=== PATIENT | female | born 1990 | race Caucasian/White ===

== ENCOUNTER 2021-08-24 14:52 | Outpatient (CLI) | payer OTHER, SELFPAY ==
--- NOTE | ~2021-08-24 | US_ITS ---
EXAMINATION: US OB /maternal detail DATE: 08/24/2021 15:41 INDICATION: Second trimester anatomic survey TECHNIQUE: Real-time ultrasound of the pelvis was performed. COMPARISON: None. FINDINGS: There is a single living fetus in breech presentation. The placenta is anterior and 3.8 cm from the i nternal cervical os. heart rate is 138 beats per minute (bpm). cardiac activity and feta l movement are noted. The amniotic fluid index is subjectively normal. The following anatomy was identified as normal: 4 chamber heart 3 vessel cord cord insertion kidneys urinary bladder stomach spine diaphragm ventricles cisterna magna cerebellum The following biometric data were obtained: Biparietal diameter (BPD): 4.0 cm; head circumference (HC): 15.5 cm; abdominal circumference (AC): 13 .3 cm; femur length (FL): 2.5 cm. These measurements are concordant. Estimated weight is 234 g +/- 35 g, which correlates with the 39th percentile when 01/22/2022 is used as estimated date of delivery. As single measurements, these parameters are each equal to the following estimated gestational ages w ith ranges of +/- 2 standard deviations: BPD: 18 weeks 2 days +/- 1 weeks 5 days. HC: 18 weeks 3 days +/- 1 weeks 3 days. AC: 18 weeks 6 days +/- 20 weeks 0 days. FL: 17 weeks 5 days +/- 1 weeks 3 days. estimated gestational age based solely on measurements from this exam is 18 weeks 2 days +/- 1 weeks 2 days. IMPRESSION: 1. Single living fetus in breech presentation. 2. Estimated weight is 234 g +/- 35 g, which correlates with the 39th percentile when 01/22/2022 is used as estimated date of delivery. Reviewed, dictated and finalized at location F. OL ADMINISTRATOR IMPRESSION: 1. Single living fetus in breech presentation. 2. Estimated weight is 234 g +/- 35 g, which correlates with the 39th per centile when 01/22/2022 is used as estimated date of delivery.
== END 2021-08-24 14:53 | disposition home or self-care (01) ==
PROVIDERS: Visit Provider Obstetrics & Gynecology
DX: Z34.92 Encounter for supervision of normal pregnancy, unspecified, second trimester (principal); Z3A.18 18 weeks gestation of pregnancy
CPT/HCPCS: 76805

== ENCOUNTER 2021-11-07 10:24 | Observation (INO) | payer OTHER, SELFPAY ==
[2021-11-07] VITALS (68 sets, daily range): BP systolic 93–136; BP diastolic 53–72; PULSE 61–118; TEMP 36.7–37.1; O2SAT 95–100; BMI 33.0
--- NOTE | 2021-11-07 11:02 | OBADM ---
This patient, Libra Fontanez, admitted to the OB room 115 for observation for back and abdominal pain. Patient/family oriented to hospital policies and general routines including ID bracelet, bed and alarms, visiting hours, pain management, procedures, bathroom and other care routines, personal items, smoking policy, room service/diet, and visiting hours. Patient/Family are encouraged to report perceived risks to care and to ask questions if they do not understand what they are told or what they should do.
[2021-11-07 11:30] LABS: Add Urine Microscopic? YES; Appearance Urine Cloudy (Clear); Bacteria Urine Trace /hpf; Bilirubin Urine Negative (Negative); Blood Urine Negative (Negative); Color Urine Yellow (Yellow); Glucose Urine UA Negative (Negative); Ketones Urine Negative (Negative); Leukocyte Esterase Ur Negative LEU/UL (Negative); Mucus Urine Rare /lpf; Nitrate Urine Negative (Negative); Protein Urine Negative (Negative); RBC Urine 0-2 /hpf (0-2); Specific Grav Ur 1.015 (1.001-1.035); Squamous Epithelial Cell Urine Many /hpf (Few); Urobilinogen Urine Negative mg/dL (<2.0); WBC Urine 0-3 /hpf
[2021-11-07] MEDS: TERBUTALINE SULFATE 1 MG/ML VIAL 0.25 MG SUB-Q ×2 (12:32→13:43)
[2021-11-07] MEDS: CYCLOBENZAPRINE HCL 10 MG TABLET PO (14:46)
--- NOTE | 2021-12-03 16:50 | P.PNOB_ITS ---
OB - Triage/Final Diagnosis Visit Information Comments/Additional reasons for admission: I have assessed the risk for this patient, Libra Tafoya Huseyin, and determined that she would benefit from observation care. Evaluation Laboratory results: Laboratory Tests 11/07/21 11:10 Urine Color Yellow Urine Appearance Cloudy H Urine pH 6.0 Ur Specific [place] 1.015 Urine Protein Negative Urine Glucose (UA) Negative Urine Ketones Negative Ur Blood (Man) Negative Urine Nitrate Negative Urine Bilirubin Negative Urine Urobilinogen Negative Leukocyte Esterase Rfl Negative Urine RBC 0-2 Urine WBC 0-3 Ur Squamous Epith Cells Many H Urine Bacteria Trace Urine Mucus Rare Final Diagnosis (1) False labor: Code(s): O47.9 - False labor, unspecified Status: Acute
== END 2021-11-07 16:39 | disposition home or self-care (01) ==
PROVIDERS: Admitting Provider Obstetrics & Gynecology; Visit Provider Obstetrics & Gynecology
DX: O47.03 False labor before 37 completed weeks of gestation, third trimester (principal); Z3A.29 29 weeks gestation of pregnancy
CPT/HCPCS: 81001; 96372; A9270; G0378; G0379; J3105

== ENCOUNTER 2021-12-11 10:46 | Observation (INO) | payer OTHER, SELFPAY ==
[2021-12-11] VITALS (16 sets, daily range): BP systolic 122; BP diastolic 70; PULSE 62–77; RESP 16; TEMP 36.1; O2SAT 96–100; BMI 34.8
--- NOTE | 2021-12-11 11:15 | OBADM ---
This patient, Libra Fontanez, admitted to the OB room OB Post 116 for observation. Patient/family oriented to hospital policies and general routines including ID bracelet, bed and alarms, visiting hours, pain management, procedures, bathroom and other care routines, personal items, smoking policy, room service/diet, and visiting hours. Patient/Family are encouraged to report perceived risks to care and to ask questions if they do not understand what they are told or what they should do.
[2021-12-11 11:38] LABS: Appearance Urine Clear (Clear); Bilirubin Urine Negative (Negative); Blood Urine Negative (Negative); Color Urine Yellow (Yellow); Glucose Urine UA Negative (Negative); Ketones Urine Negative (Negative); Leukocyte Esterase Ur Negative LEU/UL (Negative); Nitrate Urine Negative (Negative); Protein Urine Negative (Negative); Urobilinogen Urine 0.2 mg/dL (<2.0); pH Urine 7.5 (5.0-9.0)
[2021-12-11 11:59] LABS: Add Urine Microscopic? NO
--- NOTE | 2021-12-11 12:10 | PC.NURSE ---
Pt updated on plan of care. Pt refused Flexeril and asked to be discharged. Dr. Carpio called and made aware. D/c orders received.
--- NOTE | 2021-12-19 07:42 | P.PNOB_ITS ---
OB - Triage/Final Diagnosis Visit Information Comments/Additional reasons for admission: I have assessed the risk for this patient, Libra Tafoya Huseyin, and determined that she would benefit from observation care. Evaluation Laboratory results: Laboratory Tests 12/11/21 11:25 Urine Color Yellow Urine Appearance Clear Urine pH 7.5 Ur Specific [place] 1.020 Urine Protein Negative Urine Glucose (UA) Negative Urine Ketones Negative Ur Blood (Man) Negative Urine Nitrate Negative Urine Bilirubin Negative Urine Urobilinogen 0.2 Leukocyte Esterase Rfl Negative Final Diagnosis (1) Cramping affecting , antepartum: Code(s): O26.899 - Other specified related conditions, unspecified trimester; R10.9 - Unspecified abdominal pain Status: Acute (2) Back pain affecting : Code(s): O99.891 - Other specified diseases and conditions complicating ; M54.9 - Dorsalgia, unspecified Status: Acute
== END 2021-12-11 12:41 | disposition home or self-care (01) ==
PROVIDERS: Admitting Provider Obstetrics & Gynecology; Visit Provider Obstetrics & Gynecology
DX: O26.893 Other specified pregnancy related conditions, third trimester (principal); M54.9 Dorsalgia, unspecified; R10.9 Unspecified abdominal pain; Z3A.34 34 weeks gestation of pregnancy
CPT/HCPCS: 81003; G0378; G0379

== ENCOUNTER 2022-01-03 11:04 | Outpatient (CLI) | payer OTHER, SELFPAY ==
[2022-01-03 11:42] VITALS: BP 136/65; PULSE 79
--- NOTE | 2022-01-03 11:52 | PC.NURSE ---
1140- Spoke with Trish Burr CNM, orders to perform SVE and discharge to home.
== END 2022-01-03 11:51 | disposition home or self-care (01) ==
PROVIDERS: Visit Provider Obstetrics & Gynecology
DX: O42.90 Premature rupture of membranes, unspecified as to length of time between rupture and onset of labor, unspecified weeks of gestation (principal); Z3A.00 Weeks of gestation of pregnancy not specified
CPT/HCPCS: 59025; 84112

== ENCOUNTER 2022-01-05 14:47 | Observation (INO) | payer OTHER, SELFPAY ==
[2022-01-05] VITALS (7 sets, daily range): BP systolic 113–162; BP diastolic 60–96; PULSE 84–113; RESP 18; TEMP 36.4
--- NOTE | 2022-01-05 16:00 | OBADM ---
This patient, Libra Fontanez, admitted to the OB room Labor/Delivery/Recovery 118 for observation. Patient/family oriented to hospital policies and general routines including ID bracelet, bed and alarms, visiting hours, pain management, procedures, bathroom and other care routines, personal items, smoking policy, room service/diet, and visiting hours. Patient/Family are encouraged to report perceived risks to care and to ask questions if they do not understand what they are told or what they should do.
--- NOTE | 2022-01-05 16:35 | PC.NURSE ---
Addendum entered by Maria Fernanda Pineda RN 01/05/22 17:07: Made Perry aware pt has Vicodin at home she was not taking and he said if she refused it she could go home. Original Note: Spoke with Dr. Amador about pts 10/10 consistent cramping pain, FHR, uterine irritability and contractions. Orders given for 5 mg Hydrocodone.
--- NOTE | 2022-01-05 17:08 | PC.NURSE ---
Pt refused pain medication.
--- NOTE | 2022-01-30 10:28 | PM.OBTRLD ---
OB - Triage/Final Diagnosis Visit Information Comments/Additional reasons for admission: I have assessed the risk for this patient, Libra Tafoya Huseyin, and determined that she would benefit from observation care. Final Diagnosis (1) Abdominal pain: Code(s): R10.9 - Unspecified abdominal pain Status: Acute
== END 2022-01-05 17:36 | disposition home or self-care (01) ==
PROVIDERS: Admitting Provider Obstetrics & Gynecology; Visit Provider Obstetrics & Gynecology
DX: O26.899 Other specified pregnancy related conditions, unspecified trimester (principal); R10.9 Unspecified abdominal pain; Z3A.00 Weeks of gestation of pregnancy not specified
CPT/HCPCS: G0378; G0379

== ENCOUNTER 2022-01-15 06:56 | Inpatient (IN) | payer OTHER, SELFPAY ==
[2022-01-15] VITALS (167 sets, daily range): BP systolic 94–157; BP diastolic 46–96; PULSE 47–145; RESP 18; TEMP 36.1–36.6; O2SAT 90–100; BMI 35.6
--- OUTSIDE RECORDS SUMMARY | 2022-01-15 07:05 | XMS_ITS ---
:1990 Author Care Team Providers Name Role Phone Naayn Amador Primary Care Provider Unavailable Allergies Code Code System Name Reaction Severity Status Onset NKDA ? Medications Name Status Start Date Stop Date ? ? amoxicillin 500 mg capsule Completed ? 09/22 TAKE ONE CAPSULE BY MOUTH EVERY 8 HOURS UNTIL GONE amoxicillin 500 mg tablet Completed ? 2021 TAKE 1 TABLET BY MOUTH TWICE DAILY WITH FOOD FOR 10 DAYS Aurovela 24 Fe 1 mg-20 mcg (24)/75 mg (4) tablet Completed ? 09/22/2021 TAKE 1 TABLET BY MOUTH EVERY DAY fluconazole 150 mg tablet Completed ? 2021 TAKE 1 TABLET BY MOUTH ONCE DIRECTED hydrocodone 5 mg-acetaminophen 325 mg tablet Active ? Not available metronidazole 0.75 % vaginal gel Completed ? 09/22/2021 USE 2 CLEAN FINGERS TO APPLY METROGEL I NTO VAGINA EVERY NIGHT AT BEDTIME FOR 5 NIGHTS metronidazole 500 mg tablet Completed ? 09/05 TAKE 1 TABLET BY MOUTH TWICE DAILY FOR 7 DAYS Shira 0.25 mg-35 mcg tablet Completed ? 09/22 TAKE 1 TABLET BY MOUTH EVERY DAY oxycodone-acetaminophen 5 mg-325 mg tablet Completed ? 09/22/2021 Vitamin Active ? Not available sertraline 50 mg tablet Completed ? 09/22/19 TAKE 1 TABLET BY MOUTH EVERY DAY terconazole 0.8 % vaginal cream Completed ? 09/22/2021 INSERT 1 APPLICATORFUL INTO VAGINA EVERY NIGHT AT BEDTIME FOR 3 DAYS Tylenol Active ? Not available Problems Name Status Onset Date Source ? Active 09/22/2021 ? Procedures Date
--- OUTSIDE RECORDS SUMMARY | 2022-01-15 07:05 | XMS_ITS | Encounter Summary ---
:1990 Author Reason for Visit None recorded. Assessment and Plan 1. Reduced movement Discussion Note Patient was added on to NST for [facility] ed movement. Patient was unable to complete NST due to pain. She went to L& D for monitoring. Patient educational handouts: No information available. Plan of Care Reminders Provider Appointments None recorded. ? ? Lab None recorded. ? ? Referral None recorded. ? ? Procedures None recorded. ? ? Surgeries None recorded. ? ? Imaging None recorded. ? ? Medications Name Start Date ? ? hydrocodone 5 mg-acetaminophen 325 mg tablet ? Take 1 tablet every 6 hours by oral route. Vitamin ? Tylenol ? Medications Administered None recorded. Vitals None recorded. Results Lab Results None recorded. Allergies Code Code System Name Reaction Severity Onset NKDA ? ? ? Problems Name Status Onset Date Source ? Active 09/22/2021 ? Procedures Date Name Performed by ? 01/03/2021 Excisional Biopsy of Breast Mass Informa tion not available 05/05/2018 Excisional Biopsy of Breast Mass Informa tion not available 08/05/2016 Colposcopy Information not avai lable 08/05/2006 Termination of Information not available 12/18/2021 US, Obstetric, Follow-up [place] [address] [place] [address] (Work [address]) Vaccine List None recorded.
--- OUTSIDE RECORDS SUMMARY | 2022-01-15 07:05 | XMS_ITS | Encounter Summary ---
:1990 Author Reason for Visit OB visit Assessment and Plan Assessment Note Patient is ___weeks . Discussed plan. 1. Routine care Discussion Note: None recorded.Patient educational handouts: No information available. Plan of [...] Tylenol ? Medications Administered None recorded. Vitals Height Weight BMI Blood Pressure 5 ft 6 in 204 lbs 32.9 kg/m2 93/64 mm[Hg] Results Lab Results None recorded. Allergies Code [...] lable 08/05/2006 Termination of Information not available Vaccine List None recorded. Social History Tobacco Smoking Status Former Smoker What type of diet are you following? REGULAR Do you have difficulty walking or climbing stairs? N A
--- OUTSIDE RECORDS SUMMARY | 2022-01-15 07:05 | XMS_ITS | Encounter Summary ---
[...] BMI Blood Pressure 5 ft 6 in 217 lbs 35 kg/m2 124/77 mm[Hg] Results Lab Results None recorded. Allergies [...]
--- OUTSIDE RECORDS SUMMARY | 2022-01-15 07:05 | XMS_ITS | Encounter Summary ---
[...] BMI Blood Pressure 5 ft 6 in 221 lbs 35.7 kg/m2 137/77 mm[Hg] Results Lab Results None recorded. Allergies [...] Information not available 12/18/2021 US, Obstetric, Follow-up [place] [address] [place] [address] (work
--- OUTSIDE RECORDS SUMMARY | 2022-01-15 07:05 | XMS_ITS | Encounter Summary ---
:1990 Author Reason for Visit OB problem Assessment and Plan 1. Routine care Discussion Note: None recorded.Patient [...] BMI Blood Pressure 5 ft 6 in 199 lbs 32.1 kg/m2 127/75 mm[Hg] Results Lab Results None recorded. Allergies [...] lable 08/05/2006 Termination of Information not available 10/05/2021 US, Obstetric, 2Nd or 3Rd Trimester [place] [address] [place] [address] (Work [address]) 10/05/2021 US, Obstetric, Transvaginal Jessi
--- OUTSIDE RECORDS SUMMARY | 2022-01-15 07:05 | XMS_ITS | Encounter Summary ---
:1990 Author Reason for Visit None recorded. Assessment and Plan 1. Uterine size for dates discrepancy ? US, obstetric, follow-up Discussion Note: None recorded.Patient educational handouts: No information available. Plan of Care Reminders Provider Appointments None recorded. ? ? Lab None recorded. ? ? Referral None recorded. ? ? Procedures None recorded. ? ? Surgeries None recorded. ? ? Imaging US, Obstetric, Follow-up 12/18/2021 Maria Eugenia roman Medications Name Start Date ? ? hydrocodone [...] Information not available 12/18/2021 US, Obstetric, Follow-up [place] [address] [place] [address] (Work [address]) Vaccine List None recorded. Social History Tobacco Smoking Status Former Smoker What type of diet are you following? REGULAR
--- OUTSIDE RECORDS SUMMARY | 2022-01-15 07:05 | XMS_ITS | Encounter Summary ---
:1990 Author Reason for Visit OB visit OB [id number] EDC 01/22/2022 LMP 04/17/2021 Assessment and Plan 1. Routine care Discussion [...] BMI Blood Pressure 5 ft 6 in 216.99 lbs 35 kg/m2 117/76 mm[Hg] Results Lab Results None recorded. Allergies [...] Information not available 12/18/2021 US, Obstetric, Follow-up [place] [address] [place] [address] (Work Place) Vaccine List None recorded. Social History
--- OUTSIDE RECORDS SUMMARY | 2022-01-15 07:05 | XMS_ITS | Encounter Summary ---
[...] ft 6 in 217 lbs 35 kg/m2 121/76 mm[Hg] Results Lab Results None recorded. Allergies [...] Information not available 12/18/2021 US, Obstetric, Follow-up [place] [address] [place] [address] (work
--- OUTSIDE RECORDS SUMMARY | 2022-01-15 07:06 | XMS_ITS ---
:1990 Author Care Team Providers Name Role Phone SHIRA BOLANOS MD Critical Care Transport Nurse [phone] Allergies Code Code System Name Reaction Severity Status Onset NKDA ? Medications Name Status Start Date Stop Date ? ? amoxicillin 500 mg capsule Active ? Not a vailable TAKE ONE CAPSULE BY MOUTH EVERY 8 HOURS UNTIL GONE amoxicillin 500 mg tablet Completed ? 2020 TAKE 1 TABLET BY MOUTH TWICE DAILY WITH FOOD FOR 10 DAYS amoxicillin 875 mg-potassium clavulanate 125 Completed ? 01/30/2017 mg tablet Aurovela 24 Fe 1 mg-20 mcg (24)/75 mg (4) tablet Active ? Not available TAKE 1 TABLET BY MOUTH EVERY DAY azithromycin 250 mg tablet Completed ? 12/01 cephalexin 500 mg capsule Completed ? 2020 TK 1 C PO BID FOR 10 DAYS citalopram 20 mg tablet Completed ? 02/26/20 cyclobenzaprine 5 mg tablet Completed ? 11/04 docusate sodium 100 mg capsule Unknown ? N ot available doxycycline hyclate 100 mg tablet Completed ? 10/31/2020 estradiol 1 mg tablet Unknown ? Not availa ble fluconazole 150 mg tablet Active ? Not av ailable TAKE 1 TABLET BY MOUTH ONCE DIRECTED fluconazole 200 mg tablet Completed ? 2019 hydrocodone 5 mg-acetaminophen 325 mg tablet Completed ? 12/02/2019 hydrocodone 7.5 mg-acetaminophen 325 mg tablet Completed ? 10/31/2020 TAKE 1 TABLET BY MOUTH EVERY 6 TO 8 HOURS NEEDED ibuprofen 600 mg tablet Completed ? 12/02/19 ibuprofen 800 mg tablet Completed ? 12/02/19 FE 1.5/30 (28) 1.5 mg-30 mcg (21)/75 mg Completed ? 10/31/2020 (7) tablet
--- NOTE | 2022-01-15 07:08 | LDADM ---
This patient, Libra Fontanez, was admitted to Labor/Delivery/Recovery 108 on 01/15/22 at 06:56. Plans for labor, pain management and were discussed with patient. Patient/family oriented to hospital policies and general routines including ID bracelet, bed and alarms, visiting hours, pain management, procedures, bathroom and other care routines, personal items, smoking policy, room service/diet and guest tray routines, infant security routines, and visiting hours. Patient/Family are encouraged to report perceived risks to care and to ask questions if they do not understand what they are told or what they should do. See OBIX for further documentation.
[2022-01-15 07:33] LABS: Basophils Percent Auto 0.3 % (0.2-1.2); Eosinophils Absolute Auto 0.1 K/mm3 (0-0.3); Hematocrit 32.1 % (37.0-47.0); Hemoglobin 11.1 g/dL (12.0-15.0); Immature Granulocyte Absolute 0.04 K/mm3 (0.00-0.031); Immature Granulocyte Percent A 0.4 % (0-0.5); Lymphocytes Absolute Auto 2.85 K/mm3 (0.9-3.2); Lymphocytes Percent Auto 28.6 % (18.3-44.2); Mean Corpuscular HGB Conc 34.6 g/dl (32-36); Mean Corpuscular Hemoglobin 31.4 pg (26-34); Mean Corpuscular Volume 90.7 fl (80-100); Mean Platelet Volume 11.6 fl (7.4-10.4); Monocytes Absolute Auto 0.4 K/mm3 (0.1-0.6); Monocytes Percent Auto 4.3 % (2.6-8.5); Neutrophils Absolute Auto 6.5 K/mm3 (1.3-6.7); Neutrophils Percent Auto 65.4 % (45.5-73.1); Platelet Count Result 176 k/mm3 (150-375); Red Blood Count 3.54 M/mm3 (4.2-5.4); Red Cell Distribution Width 12.8 % (11.5-14.5)
[2022-01-15] MEDS: LACTATED RINGERS 1,000 ML 125 ML IV CONT (07:40)
[2022-01-15] MEDS: OXYTOCIN 30 UNITS/NS 500 ML 30 UNITS/500 ML BAG IV CONT (07:45)
--- NOTE | 2022-01-15 08:07 | PM.IMHP ---
H&P: HPI History of Present Illness Date/Time: 01/15/22 08:07 Chief Complaint: Induction of labor. Review of Systems Review of Systems: All systems reviewed & are unremarkable except as noted in HPI and below Constitutional: Constitutional: Reports as per HPI and Reports no additional constitutional complaints Eyes: Eyes: Reports as per HPI ENT: Reports system reviewed and no additional complaints, except as documented Cardiovascular: Cardiovascular: Reports as per HPI Respiratory: Respiratory: Reports as per HPI Gastrointestinal: Gastrointestinal: Reports as per HPI Genitourinary: Genitourinary: Reports no additional female genitourinary complaints Musculoskeletal: Musculoskeletal: Reports no additional musculoskeletal complaints Integumentary/Breasts: Skin/Breast: Reports system reviewed and no additional complaints, except as docu Neurologic: Reports system reviewed and no additional complaints, except as documented Psychiatric: Psychiatric: Reports no additional psychiatric complaints Endocrine: Endocrine: Reports no additional endocrine complaints Hematologic/Lymphatic: Hematologic/Lymphatic: Reports no additional hematologic/lymphatic complaints Allergic/Immunologic: Allergic/Immunologic: Reports no additional allergic/immunologic complaints [facility], [facility] Family History Family History (Updated 12/22/21 @ 14:46 by Shailesh Barlow RN) Mother Brain cancer Lung cancer Bone cancer Breast cancer in female Father Anxiety and depression Hypertension Grandparent Bone cancer Emphysema lung Anxiety and depression Other Patient's mother is Social History Social History Substance use: current Last use: last time 2 weeks ago Spiritual care concerns: No Meds Home Medications and Allergies Home Medications Medication Instructions Recorded Confirmed Type acetaminophen 500 mg tablet 1,000 mg PO Q6H PRN Pain 11/07/21 11/07/21 History (Tylenol Extra Strength) vit no.95-ferrous 1 tablet PO DAILY 11/07/21 11/07/21 History fumarate 28 mg-folic acid 800 mcg tablet () Allergies Allergy/AdvReac Type Severity Reaction Status Date / Time No Known Allergies Allergy Verified 12/22/21 14:43 Vital Signs Vital Signs - 24 hr 01/15/22 07:18 01/15/22 07:30 01/15/22 07:45 Temperature 97.2 F L Pulse Rate 68 81 65 Blood Pressure 132/80 129/81 125/82 01/15/22 08:00 Temperature Pulse Rate 75 Blood Pressure 142/91 H Exam Const: General: cooperative and healthy appearing Orientation/consciousness: oriented to person, oriented to place, oriented to time and patient oriented x3 Limitations: no limitations HENMT: Head: normal to inspection Ears: hearing grossly normal bilaterally General nose exam: Normal external nose present Face and sinus: normal facial exam Mouth: Yes Normal oral and palatal mucosa present Teeth and gingiva: dentition normal Throat: posterior oropharynx normal Eyes: General: appearance normal, both eyes and all related structures Neck: Neck: normal visual inspection Thyroid: thyroid normal Chest: Chest palpation & inspection: normal inspection of the chest Resp: Effort & Inspection: normal respiratory effort Auscultation: clear to auscultation bilaterally Cardio: Rate: regular rate Rhythm: regular rhythm GI: Inspection: normal to inspection : General: Yes bimanual renal exam normal bilaterally Skin: General skin exam: normal color and no rashes or lesions noted Neuro: General: oriented to person, oriented to place, oriented to time and patient oriented x3 Extrem: General: normal to inspection Psych: Mental Status: mental status grossly normal H&P: Results Labs Labs: Short CBC 01/15/22 Range/Units 07:27 WBC 10.0 (4.5-10.0) K/mm3 Hgb 11.1 L (12.0-15.0) g/dL Hct 32.1 L (37.0-47.0) % Plt Count 176 (150-375) k/mm3
--- NOTE | 2022-01-15 08:08 | PM.OBPNLAB ---
Pain Control Date/time seen: 01/15/22 08:08 Pelvic Exam Comments: 3-/-2 Assessment and Plan Comments: Irregular contractions FHR category 1 Possible history of shoulder dystocia. 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 Discussed risk of vaginal vs with patient. Discussed risk of maternal or complications which could include injury or . Pt does feel this baby is smaller than previous child. U/S 4 weeks ago was normal growth at 6lb efw. I did offer pcs but pt declined.Dr Amador informed.
[2022-01-15 08:50] LABS: Amphetamine Screen Urine Negative (Negative); Barbiturate Screen Urine Negative (Negative); Benzodiazepines Screen Urine Negative (Negative); Cannabinoid Screen Urine Positive (Negative); Cocaine Screen Urine Negative (Negative); Methadone Screen Urine Negative (Negative); Opiate Screen Urine Negative (Negative); Phencyclidine Screen Urine Negative (Negative)
[2022-01-15 09:11] LABS: Rapid Plasma Reagin Non-Reactive (NonReactive)
[2022-01-15] MEDS: LACTATED RINGERS 1,000 ML 999 ML IV CONT ×2 (09:17→11:41)
[2022-01-15] MEDS: fentaNYL CITRATE INJ (*CRX) 100 MCG/2 ML VIAL IV PUSH (09:35)
--- NOTE | 2022-01-15 16:47 | PM.OBPRVD ---
OB - Delivery Note Procedure Procedure: Induction method: AROM and Per Pitocin Protocol Route of delivery: Laceration Description: Periurethral Delivery repair: vicryl Quantitative Blood Loss (ml): 218 Anesthesia type: Epidural Disposition: Floor Complications: None Baby Date of : 01/[birth year] Time of : 16:38 Weeks of gestation at delivery: 39 Infant gender: Male Weight (pounds): 8 Weight (ounces): 4 Placenta delivery description: Spontaneous Cord Vessel Description: 3 Vessels score one minute: 8 score ten minutes: 9
[2022-01-15] MEDS: OXYTOCIN 30 UNITS/NS 500 ML 30 UNITS/500 ML BAG 125 UNITS IV CONT (17:10)
[2022-01-15] MEDS: IBUPROFEN 600 MG TABLET PO (20:54)
--- NOTE | 2022-01-15 21:26 | PC.NURSE ---
01/15/2022 at 2011 Patient transferred to post room #291. Support person present. Oriented to unit, room, information board, rooming in, admission packet and security measures. Patient verbalizes understanding.
[2022-01-16] MEDS: ACETAMINOPHEN 500 MG TABLET 1000 MG PO ×4 (00:37→21:29)
[2022-01-16] MEDS: WITCH HAZEL 40 PADS 1 PAD TOPICAL (00:38)
[2022-01-16 05:00] VITALS: BP 138/72; PULSE 54; RESP 18; TEMP 36.6; O2SAT 100
[2022-01-16] MEDS: IBUPROFEN 600 MG TABLET PO ×3 (05:06→17:09)
[2022-01-16 05:20] LABS: Hematocrit 29.3 % (37.0-47.0)
[2022-01-16] MEDS: MULTIVIT/MIN/PREN/FOL AC/IRON TABLET 1 TAB PO (07:30)
[2022-01-16] MEDS: DOCUSATE SODIUM 100 MG CAPSULE PO ×2 (07:30→17:09)
[2022-01-16 07:35] VITALS: BP 111/74; PULSE 55; RESP 16; TEMP 36.4; O2SAT 100
--- NOTE | 2022-01-16 08:58 | WPDANLDPN2 ---
Anes-Prog Note L&D Date/Time: 01/16/22 08:58 Comfortable throughout: labor and delivery Neuraxial method: epidural Epidural/Spinal procedure site: clean & non-tender Neuro status: Neuro function grossly intact. Vital Signs: Last Vital Signs Temp 36.6 C 01/16/22 05:00 Pulse 54 L 01/16/22 05:00 Resp 18 01/16/22 05:00 BP 138/72 01/16/22 05:00 Pulse Ox 100 01/16/22 05:00 O2 Del Method Room Air 01/15/22 20:45 Pain score (VAS): 3 I/O: Intake & Output 01/15/22 01/16/22 01/16/22 23:59 07:59 15:59 Output Total 1356 Balance -1356 Patient feedback: Patient satisfied with anesthetic care.
--- NOTE | 2022-01-16 10:32 | PM.OBPNVD ---
OB - PN: Subj Subjective Date/time seen: 01/16/22 10:32 Patient comments: no complaints, pain well controlled, incisional pain, tolerating diet and flatus present OB - PN: Obj Data Labs CBC & Chem 7: 01/16/22 05:00 Labs: Laboratory Results - last 24 hr 01/16/22 05:00 Hgb 10.0 L Hct 29.3 L OB - PN A/P Plan day: 1 Plan: routine care Comments: No problems, routine care Time Spent With Patient Time: Total time spent is greater than 50% in coordination of care (as documented) at patient's floor/unit and/or counseling patient: Exam Const: General: comfortable, no acute distress and alert Resp: Effort & Inspection: normal respiratory effort Auscultation: no crackles, no rales and no rhonchi Cardio: Rate: regular rate Heart sounds: no click, no murmurs and no rubs GI: Inspection: non-distended GI Palp: No Tenderness to palpation present (GI) Auscultation: normal bowel sounds Other: Incision - CDI Extrem: General: normal to inspection, no pedal edema and no calf tenderness
[2022-01-16 12:20] VITALS: BP 129/66; PULSE 66; RESP 16; TEMP 36.6; O2SAT 98
[2022-01-16 19:00] VITALS: BP 123/71; PULSE 55; RESP 16; TEMP 36.9
[2022-01-16] MEDS: TETANUS,DIPHTHERIA,AC PERTUSSIS ADULT (0.5 ML) BOOSTRIX IM (21:32)
[2022-01-17] MEDS: IBUPROFEN 600 MG TABLET PO (02:10)
--- NOTE | 2022-01-17 07:22 | PM.OBPNVD ---
OB - PN: Subj Subjective Date/time seen: 01/17/22 07:22 Patient comments: no complaints, pain well controlled and tolerating diet OB - PN: Obj Data Labs CBC & Chem 7: 01/16/22 05:00 OB - PN A/P Plan day: 2 Plan: routine care and discharge home Time Spent With Patient Time: Total time spent is greater than 50% in coordination of care (as documented) at patient's floor/unit and/or counseling patient: Exam Const: General: comfortable and no acute distress Resp: Effort & Inspection: normal respiratory effort Auscultation: no rales, no rhonchi and no wheezes Cardio: Rate: regular rate Heart sounds: no click, no murmurs and no rubs GI: GI Palp: Yes Soft to palpation and No Tenderness to palpation present (GI) Auscultation: normal bowel sounds Extrem: General: normal to inspection, no pedal edema and no calf tenderness
--- NOTE | 2022-01-17 07:23 | PM.OBDSVD ---
DS: Admitting Diagnosis Discharge Date 01/17/22 Admitting Diagnosis Term DS: Discharge Diagnosis Discharge Diagnosis (1) Term : Code(s): Z34.90 - Encounter for supervision of normal , unspecified, unspecified trimester Status: Acute OB - DS: Summary OB Procedures : None OB Procedures Intrapartum: Spontaneous Vag Delivery OB Procedures: : None Time Spent with Patient Time attestation: Total time spent providing and/or coordinating discharge services: Discharge Plan Discharge Discharging Clinician: Jeffrey Amador Patient Disposition: Home, Self-Care Activity: pelvic rest Diet: as tolerated Patient Instructions: Antibiotic Form Stand Alone Forms: General Discharge Information Follow-up/Referrals: Jeffrey Amador MD [Physician] - Discharge Medications: Continued acetaminophen [Tylenol Extra Strength] 500 mg Tablet 1,000 mg PO Q6H PRN (Reason: Pain) PNV cmb#95-ferrous fumarate-FA [] 28 mg iron- 800 mcg Tablet 1 tablet PO DAILY Date of admission: 01/15/22 06:56 Primary Care Provider: PHYSICIAN,FLIGHT INSPECTOR Admitting Provider: Jeffrey Amador Attending physician on admission: Jeffrey Amador Condition: Stable
[2022-01-17] MEDS: ACETAMINOPHEN 500 MG TABLET 1000 MG PO (07:52)
[2022-01-17] MEDS: MULTIVIT/MIN/PREN/FOL AC/IRON TABLET 1 TAB PO (08:36)
[2022-01-17] MEDS: DOCUSATE SODIUM 100 MG CAPSULE PO (08:36)
[2022-01-17 08:40] VITALS: BP 129/77; PULSE 55; RESP 18; TEMP 37.1; O2SAT 100
--- NOTE | 2022-01-17 15:55 | PCCCNOTE ---
Care Coordination met with pt. this morning to discuss discharge planning. Pt.'s current D/C plan is to return home with FOB, baby, and her 6 year old son. Pt. states that she is independent with ADLs and ambulation. She confirms that she has everything needed to safely bring baby home. She confirms she has a car seat and place for baby to sleep. Pt. is current with [facility] has has billet checker appointment for baby. Pt. denies any prior DCFS history. Pt. tested positive for marijuana at time of admission. Baby urine not test but umbilical cord pending. CC will follow for possible report.
[2022-01-18 10:39] VITALS: BP 132/72; PULSE 71; RESP 18; TEMP 36.7; O2SAT 100
== END 2022-01-17 13:38 | disposition home or self-care (01) | DRG 807 ==
LOC: ANHLDR 07:33 → ANHOB2 21:03
PROVIDERS: Advanced Practice Midwife; Admitting Provider Obstetrics & Gynecology; Visit Provider Obstetrics & Gynecology
DX: O71.82 Other specified trauma to perineum and vulva (principal); Z37.0 Single live birth; Z3A.39 39 weeks gestation of pregnancy; O36.8330 Maternal care for abnormalities of the fetal heart rate or rhythm, third trimester, not applicable or unspecified
CPT/HCPCS: 36415; 54150; 80307; 85014; 85018; 85025; 86592; 86850; 86900; 86901; 90715; A9270; J2590; J2795; J3010; J7120

== ENCOUNTER 2022-01-28 11:00 | Emergency (ER) | payer OTHER, SELFPAY ==
[2022-01-28 11:04] VITALS: BP 133/82; PULSE 87; RESP 20; TEMP 37.1; O2SAT 100
--- NOTE | 2022-01-28 11:28 | ED.GENADULT ---
HPI - General Adult General Chief complaint: Upper Respiratory Infection Stated complaint: sore throat headache body aches Source: patient Mode of arrival: ambulatory History of Present Illness HPI narrative: Patient presents for evaluation of sick symptoms for the past 2 days. Symptoms include sore throat, headache and body aches. No fever, chills, nausea, vomiting, diarrhea. No recent sick contacts to her knowledge. She has been taking sinus and cold medication with some improvement in her symptoms or after. No personal history of COVID. She has received her COVID vaccination. She does not smoke. She reports abdominal pain since 01/19/2022. Three days prior she had vaginal term delivery at [facility]. She passed a large vaginal clot upon arriving home but her bleeding has decreased since that time. She reports changing pad every time she urinates. Her pain is fairly constant, rated 7 out of 10 in severity, described as sharp with some numbness to the overlying skin. No vaginal discharge, change in bowel pattern, urinary symptoms. Related Data Home Medications Medication Instructions Recorded Confirmed No Home Medications 01/28/22 01/28/22 Allergies Allergy/AdvReac Type Severity Reaction Status Date / Time No Known Allergies Allergy Verified 01/28/22 11:26 Review of Systems Review of Systems: CONSTITUTIONAL: Denies fever, chills, or sweats. EYES: Denies visual changes, redness, or discharge. ENT: Reports sore throat. Denies rhinorrhea, congestion, or otalgia. CARDIOVASCULAR: Denies chest pain, palpitations, or edema. RESPIRATORY: Denies cough or dyspnea. GASTROINTESTINAL: Reports abdominal pain. Denies nausea, vomiting, or diarrhea. GENITOURINARY: Denies dysuria or hematuria. SKIN: Denies rash or itching. MUSCULOSKELETAL: Generalized body aches NEUROLOGIC: Reports headache. Denies numbness, dizziness, or weakness. PSYCHIATRIC: Denies anxiety or depression. [facility] Past Medical History Medical History (Updated 01/28/22 @ 12:30 by SULEIMAN Rhoades, MARIELLE) No pertinent past medical history Surgical History Surgical History No pertinent past surgical history Family History Family History Mother Brain cancer Lung cancer Bone cancer Breast cancer in female Father Anxiety and depression Hypertension Grandparent Bone cancer Emphysema lung Anxiety and depression Other Patient's mother is Social History Social History Smoking packs per day: 0.5 Smoking cigarettes per day: 10.0 Years smoked: 3 Smoking pack-years: 1.50 Smoking status: Former smoker Second hand tobacco smoke exposure: No Alcohol intake: current Alcohol use details: Social Substance use: current Substance use type: marijuana Last use: last time 2 weeks ago Living arrangements: with family Gender identity (if verbalized by the patient): Female Sexual Orientation (if Verbalized by the Patient): Straight or Heterosexual Spiritual care concerns: No Exam Narrative: GENERAL: Well-appearing, well-nourished, and in no acute distress. HEAD: Normocephalic, atraumatic. EYES: PERRLA and EOMI. ENT: Nares clear, no rhinorrhea or epistaxis. Mucous membranes moist. There is white exudate in posterior pharynx without considerable erythema. Uvula is midline. Bilateral TMs pearly horvath nonbulging NECK: Supple. No adenopathy or masses. No carotid bruits or JVD CHEST: Clear to auscultation. No respiratory distress. No wheezes rales or rhonchi HEART: Regular rate and rhythm. No murmur heard. Normal peripheral pulses. ABDOMEN: Soft, nontender, nondistended, normal active bowel sounds. EXTREMITIES: Normal range of motion. No edema. SKIN: Warm, dry, no rash. NEURO: No focal deficits. Alert and oriented x3.
== END 2022-01-28 12:30 | disposition short-term general hospital (02) ==
PROVIDERS: Emergency Provider Nurse Practitioner
DX: O90.89 Other complications of the puerperium, not elsewhere classified (principal); R10.9 Unspecified abdominal pain; J06.9 Acute upper respiratory infection, unspecified; Z20.822 Contact with and (suspected) exposure to COVID-19; Z87.891 Personal history of nicotine dependence
CPT/HCPCS: 81003; 87081; 87086; 87426; 87804; 87880; 99213; C9803; G0463

== ENCOUNTER 2022-01-28 13:13 | Emergency (ER) | payer OTHER, SELFPAY ==
--- NOTE | ~2022-01-28 | CT_ITS ---
EXAMINATION: CT abdomen pelvis w con DATE: 01/28/2022 17:17 INDICATION: abd pain TECHNIQUE: Computed tomography (CT) of the abdomen and pelvis was performed with 100 mL Omnipaque-300 intravenous contrast. Automated exposure control and iterative reconstruction technique were employe d. The dose-length product was 873.02 mGy-cm. COMPARISON: Ultrasound pelvis, same date. FINDINGS: Lower thorax: Unremarkable Liver: Normal. Biliary/Gallbladder: Gallbladder is normal. No bile duct dilation. Pancreas: No mass or duct dilation. Spleen: Normal. Adrenals:No mass. Kidneys: No mass or stone. Mild bilateral ureterectasis, likely related. No obstructing mas s or stone. GI tract: No small or large bowel dilation. Normal appendix. Mesentery/Peritoneum: No ascites, mass, or free air. Retroperitoneum: No mass. Pelvis: Enlarged uterus. Fluid and gas within the endometrial cavity. Soft Tissues: Rectus diastases, otherwise the soft tissues tissues and body wall unremarkable. Bones: No acute osseous finding. IMPRESSION: Fluid and gas within the endometrial cavity, may reflect normal changes. Infection is not excluded. Reviewed, dictated and finalized at location K. IMPRESSION: Fluid and gas within the endometrial cavity, may reflect normal laureano ges. Infection is not excluded.
--- NOTE | ~2022-01-28 | US_ITS ---
EXAMINATION: US pelvic complete w TV DATE: 01/28/2022 15:24 INDICATION: abd pain 2 weeks . TECHNIQUE: Multiple transabdominal and endovaginal sonographic images of the pelvis were obtained. COMPARISON: None. FINDINGS: Uterus: 12.8 x 7.7 x 9.8 cm. Endometrial complex measures 0.6 cm. Air present within the endometrial cavity. Right Ovary: 1.5 x 2.0 x 1.1 cm. Vascular flow is present. Left Ovary: 4.6 x 2.4 x 1.2 cm. Vascular flow is present. There is no free fluid in the pelvis. IMPRESSION: 1. Air within the endometrial cavity, this may represent resolving change however infectio n/endometritis could appear similar. 2. Otherwise normal pelvic sonogram findings. Reviewed, dictated and finalized at location K. IMPRESSION: 1. Air within the endometrial cavity, this may represent resolving c hange however infection/endometritis could appear similar. 2. Otherwise normal pelvic sonogram findings.
[2022-01-28 13:21] VITALS: BP 154/75; PULSE 85; RESP 14; TEMP 37.4; O2SAT 100
[2022-01-28] MEDS: KETOROLAC 30 MG/ML VIAL (*BKC) IV PUSH (13:46)
[2022-01-28] MEDS: SODIUM CHLORIDE 0.9% IV 1,000 ML 999 ML IV CONT (13:47)
[2022-01-28 13:48] LABS: Basophils Percent Auto 0.3 % (0.2-1.2); Eosinophils Percent Auto 0.3 % (0-4.4); Hematocrit 34.6 % (37.0-47.0); Hemoglobin 11.2 g/dL (12.0-15.0); Immature Granulocyte Absolute 0.06 K/mm3 (0.00-0.031); Immature Granulocyte Percent A 0.5 % (0-0.5); Lymphocytes Absolute Auto 1.13 K/mm3 (0.9-3.2); Lymphocytes Percent Auto 9.9 % (18.3-44.2); Mean Corpuscular HGB Conc 32.4 g/dl (32-36); Mean Corpuscular Hemoglobin 30.8 pg (26-34); Mean Corpuscular Volume 95.1 fl (80-100); Monocytes Absolute Auto 0.5 K/mm3 (0.1-0.6); Monocytes Percent Auto 4.1 % (2.6-8.5); Neutrophils Absolute Auto 9.7 K/mm3 (1.3-6.7); Neutrophils Percent Auto 84.9 % (45.5-73.1); Platelet Count Result 246 k/mm3 (150-375); Red Blood Count 3.64 M/mm3 (4.2-5.4); Red Cell Distribution Width 12.8 % (11.5-14.5); White Blood Count 11.4 K/mm3 (4.5-10.0)
[2022-01-28 13:54] LABS: Appearance Urine Slightly Cloudy (Clear); Bilirubin Urine Negative (Negative); Blood Urine 3+ (Negative); Color Urine Yellow (Yellow); Glucose Urine UA Negative (Negative); Ketones Urine Negative (Negative); Leukocyte Esterase Ur 2+ LEU/UL (Negative); Nitrate Urine Negative (Negative); Protein Urine Trace mg/dL (Negative); Specific Grav Ur >= 1.030 (1.001-1.035); Urobilinogen Urine 0.2 mg/dL (<2.0)
[2022-01-28 13:56] LABS: Add Urine Microscopic? YES
[2022-01-28 13:58] LABS: Alanine Aminotransferase 16 U/L (6-35); Albumin Level 3.4 g/dL (3.5-5.1); Alkaline Phosphatase 84 U/L (38-126); Anion Gap 5 mmol/L (8-16); Aspartate Amino Transferase 22 U/L (14-36); Bilirubin,Total 0.2 mg/dL (0.2-1.3); Blood Urea Nitrogen 5 mg/dL (7-17); Calcium 8.1 mg/dL (8.4-10.2); Carbon Dioxide 26 mmol/L (22-30); Chloride 106 mmol/L (98-107); Estimated Glomerular Filt Rate > 60; Glucose 129 mg/dL (65-110); Lipase 28 U/L (23-300); Potassium 3.3 mmol/L (3.4-5.0); Sodium 137 mmol/L (137-145)
[2022-01-28 14:03] LABS: Bacteria Urine Trace /hpf; Mucus Urine Few /lpf; RBC Urine >75 /hpf (0-2); Squamous Epithelial Cell Urine Rare /hpf (Few); WBC Urine >75 /hpf
[2022-01-28 14:14] LABS: Beta HCG Quantitative 30.26 mIU/ML
--- NOTE | 2022-01-28 14:38 | PC.NURSE ---
pt. to US
[2022-01-28 15:30] VITALS: BP 145/84; PULSE 71; RESP 97; O2SAT 14
[2022-01-28 16:30] VITALS: BP 132/89; PULSE 66; RESP 19; O2SAT 98
[2022-01-28 17:57] VITALS: BP 148/88; PULSE 97; RESP 14; O2SAT 99
--- NOTE | 2022-01-28 18:26 | ED.ABDPAIN ---
HPI - Abdominal Pain General Chief Complaint: Abdominal Pain Stated Complaint: abd pain, 2 weeks post Time Seen by Provider: 01/28/22 13:15 Source: RN notes reviewed History of Present Illness HPI narrative: Patient presents emergency department from urgent care for abdominal pain. Patient states she is approximately 2 weeks with vaginal delivery followed by Dr. Allison. She states she has been having pain in the right upper abdomen for the past 1 week. States the area is tender to palpation states nothing makes the pain better or worse. She states she did pass a large blood clot approximately 1 week ago but has had minimal bleeding since that time. She states that she also has had associated sore throat and rhinorrhea she denies any fevers or chills chest pain shortness of breath cough nausea vomiting diarrhea or any other symptoms. Patient states that the urgent care they did a COVID test and flu test and strep test were all negative Related Data Allergies Allergy/AdvReac Type Severity Reaction Status Date / Time No Known Allergies Allergy Verified 01/28/22 13:21 Review of Systems Review of Systems: Gen.: Denies fevers or chills Eyes: Denies eye pain or visual change ENT: Reports sore throat and rhinorrhea Respiratory: Denies shortness of breath or cough CV: Denies chest pain or palpitations GI: Reports abdominal pain. Denies nausea, emesis or diarrhea reports recent Musculoskeletal: Denies back pain or muscle pain Neuro: Denies numbness, tingling, weakness or focal weakness Skin: Denies rash Except as documented, all other systems reviewed and negative PMFSH Past Medical History Medical History No pertinent past medical history Surgical History Surgical History No pertinent past surgical history Family History Family History Mother Brain cancer Lung cancer Bone cancer Breast cancer in female Father Anxiety and depression Hypertension Grandparent Bone cancer Emphysema lung Anxiety and depression Other Patient's mother is Social History Social History Smoking packs per day: 0.5 Smoking cigarettes per day: 10.0 Years smoked: 3 Smoking pack-years: 1.50 Smoking status: Former smoker Second hand tobacco smoke exposure: No Alcohol intake: current Alcohol use details: Social Substance use: current Substance use type: marijuana Last use: last time 2 weeks ago Gender identity (if verbalized by the patient): Female Sexual Orientation (if Verbalized by the Patient): Straight or Heterosexual Spiritual care concerns: No Exam Narrative: APPEARANCE: No acute distress, nontoxic, resting in bed HEENT: Normocephalic, atraumatic, TMs clear bilaterally bilateral misfiled mild erythema no exudate posterior pharynx tonsils 2+ uvula midline no exudate RESPIRATORY: No respiratory distress, clear to auscultation bilaterally with no rhonchi wheezing or rales CARDIOVASCULAR: RRR s murmur ABDOMINAL: Soft nondistended tender palpation right upper quadrant no tenderness left upper quadrant right lower quadrant left lower quadrant no rebound or guarding MUSCULOSKELETAl: Moves all extremities. No clubbing, cyanosis or edema. NEURO: Awake and alert. Following commands, speech normal, no focal deficits SKIN:: Warm, dry. Normal Color PSYCHIATRIC: Normal affect/mood Course Course Emergency Course: Reviewed old records. Patient had negative COVID-19 test, negative strep test and negative influenza test at urgent care today Discussed Dr. Allison presentation work-up at this time agrees with plan presented patient with Keflex recommends Flagyl be added with follow-up as an outpatient Discussed with patient results of workup and ham[place]
[2022-01-28] MEDS: POTASSIUM CHLORIDE 20 MEQ PACKET (FOR LIQUID) PO (18:48)
[2022-01-28] MEDS: metroNIDAZOLE 250 MG TABLET 500 MG PO (18:48)
[2022-01-28 18:50] VITALS: BP 123/88; PULSE 88; RESP 19; O2SAT 97
== END 2022-01-28 18:50 | disposition home or self-care (01) ==
PROVIDERS: Emergency Provider Emergency Medicine; PCP Obstetrics & Gynecology
DX: O86.20 Urinary tract infection following delivery, unspecified (principal); N39.0 Urinary tract infection, site not specified; O90.89 Other complications of the puerperium, not elsewhere classified; R10.10 Upper abdominal pain, unspecified; O99.53 Diseases of the respiratory system complicating the puerperium; J02.9 Acute pharyngitis, unspecified; Z87.891 Personal history of nicotine dependence
CPT/HCPCS: 36415; 74177; 76830; 76856; 80053; 81001; 81003; 83690; 84702; 85025; 87081; 87086; 87426; 87804; 87880; 96361; 96365; 96375; 99284; A9270; C9803; J0696; J1885; J7030; Q9967

== ENCOUNTER 2024-03-19 10:52 | Outpatient (RCR) | payer OTHER, SELFPAY ==
--- NOTE | 2024-03-19 12:06 | OTOPEVAL1 ---
Assessment and note entered by Grabiel Castellano, OTR/Ramesh, CHT Evaluation Information Assessment Status Evaluation Diagnosis Pain in left finger(s) Subjective Information Patient reports bilateral thumb pain for a couple of months , left worse than right. 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 Reports the thumbs feel weak also. Reported Pain Level Pain Score 4,0: Self Report Additional Pain Score Comments (L) thumb - at rest 3-4/10, can get to 0 at times, with ROM pain increased to 7/10 (R) thumb - at rest 0/10, with ROM pain increased to 3/10 Assessment OT Clinical Summary Patient referred to OT with bilateral thumb pain, left worse than right. Jimmy's is negative for de Quervain's tenosynovitis. [facility] grind test is negative for OA. Unable to fully recreate patient 's pain in the clinic today, however she did demonstrate pain and weakness with pinching assessments. Issued gross wrist strengthening, door slinger strengthening, and pinch strengthening HEP. Continued follow up indicated to progress HEP as tolerated, use of modalities, and strengthening to facilitate reduced pain and improved functional use of bilateral hands. Plan of Care Interventions Therapeutic Exercise,Therapeutic Activities, Paraffin OT Services Indicated Yes Treatment Frequency and Every other week for 2 more visits Duration These treatments will address the objective and functional deficits as defined above. The patient will be advanced safely and appropriately in order for the patient to progress towards his/her prior level of function. Additional exercises will be introduced and as well as a comprehensive home exercise program upon discharge, if needed, ?to ensure carryover of functional gains achieved in the clinic. This treatment plan has been reviewed and agreement upon by the patient.
--- NOTE | 2024-03-19 12:06 | OPREHPOC ---
Outpatient Therapy Plan of Care This is a Multidisciplinary Plan of Care that may contain components documented by all disciplines (PT, OT, and ST.) OT Problem 1 OT Problem #1 Knowledge Deficit OT Goal 1 Goal 1. Patient to be independent with instructed materials. Target Visit 3 OT Problem 2 OT Problem #2 Pain OT Goal 1 Goal 1. Patient to report reduced bilateral hand pain to 2/10 or less with ADLs. Target Visit 3 OT Problem 3 OT Problem #3 Impaired Strength OT Goal 1 Goal 1. Increase bilateral wrist strength to be able to complete wrist HEP with 4 lb. dumbbells x20 reps 2. Increase (L) lateral pinch strength to 14 lbs. 3. Increase (L) tip pinch to 6 lbs. Target Visit 3
--- NOTE | 2024-04-02 14:14 | PCOTNOTE ---
Patient did not show up for scheduled appointment this date. Patient was called and she stated she thought it was next . Patient was provided with alternative dates and time. Patient stated she will wait till her next scheduled appointment on the but will call if anything changes.
--- NOTE | 2024-04-13 09:34 | PCOTNOTE ---
Patient called & cancelled scheduled re-evaluation appointment this date due to illness. She rescheduled to later this month.
--- NOTE | 2024-06-19 09:41 | OTOPDC ---
Assessment and note entered by Grabiel Castellano, OTTammie/Ramesh, LENNYT OT D/C Notification 06/19/24 OT Clinical Summary Patient referred to OT with left thumb pain. She attended the initial evaluation on 03/19/24, however has not returned for any follow up appointments. She is being discharged from OT at this time.
== END 2024-06-17 23:59 | disposition home or self-care (01) ==
LOC: ANHOT 10:52
PROVIDERS: PCP Family Medicine; Visit Provider Family Medicine
DX: M79.645 Pain in left finger(s) (principal)
CPT/HCPCS: 97018; 97110; 97166

== ENCOUNTER 2025-06-15 13:46 | Outpatient (CLI) | payer OTHER, SELFPAY ==
--- OUTSIDE RECORDS SUMMARY | 2025-06-15 13:54 | XMS_ITS | Clinical Summary ---
Author Organization [facility] Address [address] [place] [address] Care Team Providers Care Transplant Coordinator Name Role Phone Unavailable Primary Care Provider Unavailabl e Source Comments [facility],non-owned Affiliates and Associated Physician Practices is amultiple site organization consisting of ambulatory clinics and hospital sitesin [place], [place], [place] and [place]. This disclosure is being madepursuant to the Care Everywhere program and may not contain all information available regarding this patient. Last updated 18.[facility] Allergies No known active allergies Medications * Be aware that medications may not be up to date on this document. Alwaysverify current medications with the patient. No known medications Active Problems Problem Noted Date Diagnosed Date Family history of breast cancer in first degree relative 09/22/2018 Fibroadenoma of left breast 09/22/2018 Breast mass 05/23/2018 Cervical radiculopathy 10/14/2017 Family History Medical History Relation Name Comments Hypertension Father Cancer - Other Maternal Grandfather bone Cancer - Breast Mother Cancer - Other Mother bone None Known Paternal Grandfather COPD - Chronic Obstructive Pulmonary Disease Paternal Grandmother Relation Name Status Comments Father Alive Maternal Grandfather Maternal Grandmother Alive Mother Paternal Grandfather Alive Paternal Grandmother Social History Tobacco Use Types Packs/Day Years Used Date Smoking Tobacco: Never Smokeless Tobacco: Never Alcohol Use Standard Drinks/Week Comments Yes 0 (1 standard drink = 0.6 oz pur e alcohol) Comments No Sex and Gender Information Value Date Recorded Sex Assigned at Not on file Legal Sex Female 12:39 PM CDT Gender Identity Not on file Sexual Orientation Not on file Last Filed Vital Signs Vital Sign Reading Time Taken Comments Blood Pressure 122/80 04/28/2021 11:13 AM CDT Pulse - - Temperature - - Respiratory Rate - - Oxygen Saturation - - Inhaled Oxygen Concentration - - Weight 78 kg (172 lb) 04/28/2021 11:13 AM CDT Height 167.6 cm (5' 6) 04/28/2021 11:13 AM CDT Body Mass Index 27.76 04/28/2021 11:13 AM CDT Plan of Treatment Health Maintenance Due Date Last Done Comments HIV SCREENING 12/14/2006 HEPATITIS C SCREENING 12/10/2009 DTAP/TDAP/TD VACCINES (1 - Tdap) 12/14/2010 HEPATITIS B VACCINE (1 of 3 - 19+ 3-dose series) 12/14/2010 HPV VACCINE (1 - 3-dose SCDM series) 12/14/2018 DEPRESSION SCREENING 08/05/2024 COVID-19 VACCINE (1 - 2023-2 5 season) 2025 INFLUENZA VACCINE (#1) 2025 ZOSTER VACCINE (1 of 2) 12/14/2041 HIB VACCINE Aged Out No longer eligi ble based on patient's age to complete this topic MENINGOCOCCAL (Group B) VACC INE SHARED DECISION-MAKING Aged Out No longer eligibl e based on patient's age to complete this topic MENINGOCOCCAL GROUPS A/C/Y/W VACCINE Aged Out No longer eligible b ased on patient's age to complete this topic PNEUMOCOCCAL VACCINE Aged Out No long er eligible based on patient's age to complete this topic Insurance [facility]
--- OUTSIDE RECORDS SUMMARY | 2025-06-15 13:54 | XMS_ITS | Clinical Summary ---
Author Organization [facility] Address [address] [place] [address] Phone Care Team Providers Care Principal Embedded Software Engineer Name Role Phone Kimberly Ray GALLEY STRIPPER, SIMULATION ANALYST Primary Care Provider [phone] Allergies No known active allergies Medications sertraline (ZOLOFT) 25 MG Tablet Take 25 mg by mouth. Active sertraline (ZOLOFT) 50 MG Tablet Take 50 mg by mouth. 10/08/2023 Active Active Problems No known active problems Immunizations Immunization Administration Dates Next Due TDAP Vaccine 01/16/2022,10/03/2018,02/05/2015 Family History Medical History Relation Name Comments No Known Problems Brother Hypertension Father Cancer Maternal Grandfather bone Cancer Mother breast, bone Emphysema Paternal Grandmother Relation Name Status Comments Brother Alive Father Alive Maternal Grandfather Mother Paternal Grandmother Social History Tobacco Use Types Packs/Day Years Used Date Smoking Tobacco: Former Cigarettes 0.4 7 0 03/02/2012 - 03/02/2019 Smokeless Tobacco: Never Alcohol Use Standard Drinks/Week Comments Yes 0 (1 standard drink = 0.6 oz pur e alcohol) occasionally PHQ-2 Answer Date Recorded Total Score - Questions 1-9 0 02/03 Sexually Active Control Partners Comments Yes Oral Contraceptive Male Comments No Sex and Gender Information Value Date Recorded Sex Assigned at Not on file Legal Sex Female 11:37 PM CDT Gender Identity Not on file Sexual Orientation Not on file Last Filed Vital Signs Vital Sign Reading Time Taken Comments Blood Pressure 110/72 10/28/2023 8:58 AM CDT Pulse 52 10/28/2023 8:58 AM CDT Temperature 36.3 C (97.4 F) 10/28/2023 8:58 AM CDT Respiratory Rate 16 10/28/2023 8:58 AM CDT Oxygen Saturation 99% 10/28/2023 8:58 AM CDT Inhaled Oxygen Concentration - - Weight 78.9 kg (174 lb) 10/28/2023 8:58 AM CDT Height 167.6 cm (5' 6) 10/28/2023 8:58 AM CDT Body Mass Index 28.08 10/28/2023 8:58 AM CDT Plan of Treatment Health Maintenance Due Date Last Done Comments Hepatitis B Immunization (1 of 3 - 19+ 3-dose series) 12/14/2010 Human Papillomavirus (HPV) Immunization (1 - 3-dose SCDM series) 12/14/2018 HPV/Cotest 12/14/2021 Cervical Cancer Screening (CCS) 02/29/2024 Pap Smear 02/29/2024 02/28/2021 Influenza Immunization (#1) 2025 SARS-COV-2 Immunization ( season) 2025 07/17/2021, 06/21/2021 Td Immunization Every 10 Yea rs (Adults With 1 Tdap) 01/17/2032 01/16/2022, 10/03/2018, 02/05/2015 Respiratory Syncytial Virus (RSV) Immunization (Adult) (1 - 1-dose 75+ series) 12/14/2066 Hepatitis C Virus (HCV) Screening Completed 11/06/2021 DTaP/Tdap/Td Immunization Discontinued 2021, 10/03/2018, 02/05/2015 Meningococcal Immunization (ACWY) Aged Out No longer eligible based on patient's age to complete this topic Pneumococcal Immunization Combined Aged Out No longer eligible based on patient's age to complete this topic Rotavirus Immunization Aged Out No lo nger eligible based on patient's age to complete this topic Insurance [place]ICAID [place] Care Teams Principal Embedded Software Engineer Relationship Specialty Start Date End Date Kimberly Ray, GALLEY STRIPPER, SIMULATION ANALYST [address] [place] [address] PCP - General Certified Nurse Practitioner 10/28/23
--- OUTSIDE RECORDS SUMMARY | 2025-06-15 13:54 | XMS_ITS | Data Portability ---
Author Organization [facility] Address [address] [place] [address] Assessment Encounter Date Assessment Date Assessment LastModified by Organization Details LastModified Time 04/26/2022 04/26/2022 Annual gynecological exam performed. Patient will come back in a year unless there are new symptoms. [email or web address] Not available 04/26/2022 15:58:28 04/30/2023 04/30/2023 Annual gynecological exam performed. Patient will come back in a year unless there are new symptoms. [email or web address] Not available 04/30/2023 10:57:21 Plan of Treatment Reminders Order Date Submit Date Provider Last Modified By Organization Details Last Modified Time Details Appointments [facility] 2024 10:00A ZENON Soliz Not available Not available Not available CONSULTAT ION 2024 11:00A South AMADOR MD Not available Not available Not available Lab CBC w/ auto diff 2021 [facility] (Lab), [address], [place], [address], 04/27/2022 03:46:18 CMP, serum or plasma 2021 [facility] (Lab), [address], [place], [address], 04/27/2022 03:46:19 lipid panel, blood 2021 [facility] (Lab), [address], [place], [address], 04/27/2022 03:46:19 TSH, serum or plasma 2021 022 [facility] (Lab), [address], [place], [address], 04/27/2022 03:46:20 vitamin D, 25-hydrox y, total, serum 2021 022 [facility] (Lab), [address], [place], [address], 04/27/2022 03:46:20 Referral None recorded. Procedures None recorded. Surgeries None recorded. Imaging None recorded. Medication Orders sertralin e 25 mg tablet [address] [id number], [address] [place], [place], [id number], 04/30/2023 16:14:16 Junel Fe 24 1 mg-20 mcg (24)/75 mg (4) tablet 2022 023 [email or web address] [facility][id number], [address] [place], [place], [id number], 04/30/2023 10:58:42 doxycycli ne hyclate 100 mg capsule 2022 023 [email or web address] [facility] #[id number], [address] [place], [place], [id number], 04/30/2023 10:58:38 Nuvessa 1.3 % (65 mg/5 gram) vaginal gel [address] [id number], [address] [place], [place], [id number], 02/14/2023 15:56:20 Patient TargetsNo targets recorded. Patient InstructionsNo instructions recorded. Reason for Referral None Reported. Results Created Date Observation Date Name Description Value Unit Range Abnormal Flag Note LastModifiedBy Organization Detail LastModifiedTime 04/26/20 22 04/26/2022 CBC W/DIF F WBC 6.9 10'3/ uL 3.6-10 .2 Not Available [facility] [place], [address], 04/27/2022 03:46:15 04/26/20 22 04/26/2022 CBC W/DIF F RBC 4.08 10'6/ uL (based on docume nted legal sex) 4.10-5 .30 low Not Available [facility] [place], [address], 04/27/2022 03:46:15 04/26/20 22 04/26/2022 CBC W/DIF F HGB 11.6 g/dL (based on docume nted legal sex) 11.9-1 5.8 low Not Available [facility] [place], [address], 04/27/2022 03:46:15 04/26/20 22 04/26/2022 CBC W/DIF F HCT 37.3 % (based on docume nted legal sex) 37.4-4 8.3 low Not Available [facility] [place], [address], 04/27/2022 03:46:15 04/26/20 22 04/26/2022 CBC W/DIF F MCV 91.4 fL 82.0-9 9.0 Not Available [facility] [place], [address], 04/27/2022 03:46:15 04/26/20 22 04/26/2022 CBC W/DIF F MCH 28.4 pg 27.0-3 3.0 Not Available [facility] [place], [address], 04/27/2022 03:46:15 04/26/20 22 04/26/2022 CBC W/DIF F MCHC 31.1 g/dL 32.0-3 6.0 low Not Available [facility] [place], [address], 04/27/2022 03:46:15 04/26/20 22 04/26/2022 CBC W/DIF F RDW 13.0 % 11.0-1 5.0 Not Available [facility] [place], [address], 04/27/2022 03:46:15 04/26/2004/26/2022 CBC W/DIF F plt 287 10'3/ uL 150-45 0 Not Available [facility] [place], [address], 04/27/2022 03:46:15 04/26/20 22 04/26/2022 CBC W/DIF F MPV 11.7 fL 9.8-12 .7 Not Available [facility] [place], [address], 04/27/2022 03:46:15 04/26/2004/26/2022 CBC W/DIF F NRBC's 0.0 % 0 Not Available [facility] [place], [address], 04/27/2022 03:46:15 04/26/2004/26/2022 CBC W/DIF F absolute NRBCs 0.0 10'3/ uL 0 Not Available [facility] [place], [address], 04/27/2022 03:46:15 04/26/20 04/26/2022 CBC W/DIF F neutrophils 53.6 % 37.0-7 2.0 Not Available [facility] [address] [place], [place] [address], [place], [address], 04/27/2022 03:46:15 04/26/20 22 04/26/2022 CBC W/DIF F lymphocytes 38.3 % 16.0-4 8.0 Not Available [facility] [address] [place], [place] [address], [address], 04/27/2022 03:46:15 04/26/20 22 04/26/2022 CBC W/DIF F monocytes 5.9 % 4.0-14 .0 Not Available [facility] [address] [place] [address], [address], 04/27/2022 03:46:15 04/26/20 22 04/26/2022 CBC W/DIF F eosinophils 1.4 % 0.0-9. 0 Not Available [facility] [address] [place] [address], [address], 04/27/2022 03:46:15 04/26/20 22 04/26/2022 CBC W/DIF F basophils 0.7 % 0.0-2. 0 Not Available [facility] [address] [place], [place] [address], [address], 04/27/2022 03:46:15 04/26/20 22 04/26/2022 CBC W/DIF F immature granulocytes 0.1 % no define d refere nce range Not Available [facility] [address] [place], [place] [address], [address], 04/27/2022 03:46:15 04/26/20 22 04/26/2022 CBC W/DIF F absolute neutrophils 3.7 10'3/ uL 1.1-6. 0 Not Available [facility] [address] [place], [place] [address], [address], 04/27/2022 03:46:15 04/26/20 22 04/26/2022 CBC W/DIF F absolute lymphocytes 2.7 10'3/ uL 0.7-3. 4 Not Available [facility] [address] [place] [address], [address], 04/27/2022 03:46:15 04/26/20 22 04/26/2022 CBC W/DIF F absolute monocytes 0.4 10'3/ uL 0.3-1. 0 Not Available [facility] [address] [place] [address], [address], 04/27/2022 03:46:15 04/26/20 22 04/26/2022 CBC W/DIF F absolute eosinophils 0.1 10'3/ uL 0.0-0. 6 Not Available [facility] [address] [place] [address], [address], 04/27/2022 03:46:15 04/26/20 22 04/26/2022 CBC W/DIF F absolute basophils 0.1 10'3/ uL 0.0-0. 1 Not Available [facility] [address] [place] [address], [address], 04/27/2022 03:46:15 04/26/20 22 04/26/2022 CBC W/DIF F absolute immature granulocytes 0.0 10'3/ uL 0.00-0 .10 2021 1:42 AM: P indic ates parti al resul ts on a panel have been relea sed. Addit ional resul ts will follo w. 2021 1:42 AM: This resul t has been final verif ied. No addit ional or joyce ed resul ts are expec bg. Not Available [facility] [address] [place] [address], [place], [address], 04/27/2022 03:46:15 04/26/20 22 04/26/2022 LIPID PANEL ,AMA (LDL- CALC) total cholesterol 146 mg/dL 0-199 Not Available [facility] [address] [place] [address], [address], 04/27/2022 03:46:18 04/26/20 22 04/26/2022 LIPID PANEL ,AMA (LDL- CALC) triglyceride s 66 mg/dL 0.00-1 50.00 NCEP Refer ence Value s for Trigl yceri lorena: Rashmi l: <150 mg/dL Borde rline High: 150 - 199 mg/dL High: 200 - 499 mg/dL Very High: >/= 500 mg/dL Not Available [facility] [address] [place] [address], [address], 04/27/2022 03:46:18 04/26/20 22 04/26/2022 LIPID PANEL ,AMA (LDL- CALC) HDL cholesterol 57 mg/dL >40 Not Available [facility] [address], [address], 04/27/2022 03:46:18 04/26/20 22 04/26/2022 LIPID PANEL ,AMA (LDL- CALC) LDL cholesterol 76 mg/dL 0-99 Cutof f value s recom tanisha d by the Lavelle campos Catalina stero l Educa tion Progr am: NASIR ABLE: Catalina stero l <200 mg/dL LDL <100 mg/dL BORDE RLINE : Catalina stero l 200-2 39 mg/dL LDL 101-1 59 mg/dL HIGHE R RISK: Catalina stero l >240 mg/dL LDL >160 mg/dL , HDL <40 mg/dL Not Available [facility] [address] [place] [address], [address], 04/27/2022 03:46:18 04/26/20 22 04/26/2022 LIPID PANEL ,AMA (LDL- CALC) non-HDL cholesterol 89 mg/dL no refere nce range A reaso nable goal for non-H DL catalina stero l is one that is 30 mg/dL highe r than the LDL catalina stero l goal. Not Available [facility] [address] [place], [address], 04/27/2022 03:46:18 04/26/20 22 04/26/2022 LIPID PANEL ,AMA (LDL- CALC) chol/HDL ratio 2.6 . 0.0-5. 0 Not Available [address] [place], [address], 04/27/2022 03:46:18 04/26/20 22 04/26/2022 CMP(C OMPRE HENSI VE METAB OLIC PANEL ) sodium 141 mmol/ L 133-14 6 Not Available [address] [place], [address], 04/27/2022 03:46:19 04/26/20 22 04/26/2022 CMP(C OMPRE HENSI VE METAB OLIC PANEL ) potassium 4.0 mmol/ L 3.5-5. 1 Not Available [address] [place], [address], 04/27/2022 03:46:19 04/26/20 22 04/26/2022 CMP(C OMPRE HENSI VE METAB OLIC PANEL ) chloride 104 mmol/ L 98-107 Not Available [address] [place], [address], 04/27/2022 03:46:19 04/26/20 22 04/26/2022 CMP(C OMPRE HENSI VE METAB OLIC PANEL ) carbon dioxide 27 mmol/ L 21-31 Not Available [address] [place], [address], 04/27/2022 03:46:19 04/26/2004/26/2022 CMP(C OMPRE HENSI VE METAB OLIC PANEL ) anion gap 10 mmol/ L 4-13 Not Available [facility] [place], [address], 04/27/2022 03:46:19 04/26/2004/26/2022 CMP(C OMPRE HENSI VE METAB OLIC PANEL ) blood urea nitrogen 8 mg/dL 7-25 Not Available [facility] [place], [address], 04/27/2022 03:46:19 04/26/2004/26/2022 CMP(C OMPRE HENSI VE METAB OLIC PANEL ) creatinine 0.96 mg/dL 0.60-1 .30 Not Available [facility] [place], [address], 04/27/2022 03:46:19 04/26/2004/26/2022 CMP(C OMPRE HENSI VE METAB OLIC PANEL ) egfrcr (CKD-epi 2020) 82 mL/mi n/1.7 3_m2 >=60 Not Available [facility] [place], [address], 04/27/2022 03:46:19 04/26/2004/26/2022 CMP(C OMPRE HENSI VE METAB OLIC PANEL ) calcium 9.2 mg/dL 8.3-10 .5 Not Available [facility] [place], [address], 04/27/2022 03:46:19 04/26/20 22 04/26/2022 CMP(C OMPRE HENSI VE METAB OLIC PANEL ) glucose 80 mg/dL 70-100 Not Available [facility] [address] [place] [address], [address], 04/27/2022 03:46:19 04/26/20 22 04/26/2022 CMP(C OMPRE HENSI VE METAB OLIC PANEL ) protein, total 7.1 g/dL 6.4-8. 3 Not Available [facility] [address] [place] [address], [address], 04/27/2022 03:46:19 04/26/2004/26/2022 CMP(C OMPRE HENSI VE METAB OLIC PANEL ) albumin 4.3 g/dL 3.5-5. 0 Not Available [facility] [address] [place] [address], [address], 04/27/2022 03:46:19 04/26/20 22 04/26/2022 CMP(C OMPRE HENSI VE METAB OLIC PANEL ) ALT 13 units /L 9-43 Not Available [facility] [address] [place] [address], [address], 04/27/2022 03:46:19 04/26/20 22 04/26/2022 CMP(C OMPRE HENSI VE METAB OLIC PANEL ) alkaline phosphatase 62 units /L 34-104 Not Available [facility] [address] [place] [address], [address], 04/27/2022 03:46:19 04/26/20 22 04/26/2022 CMP(C OMPRE HENSI VE METAB OLIC PANEL ) AST 14 units /L 13-39 Not Available [facility] [address] [place] [address], [address], 04/27/2022 03:46:19 04/26/20 22 04/26/2022 CMP(C OMPRE HENSI VE METAB OLIC PANEL ) bilirubin, total 0.3 mg/dL 0.2-1. 2 Not Available [facility] [address] [place], [address], 04/27/2022 03:46:19 04/26/20 22 04/26/2022 TSH, REFLE X FREE T4 TSH 1.17 uIU/m L 0.30-5 .33 Not Available [facility] [address] [place], [address], 04/27/2022 03:46:20 04/26/20 22 04/26/2022 VITAM IN D, 25-OH (TOTA L D2/D3 ) vitamin D, 25-hydroxy, total 22.0 NG/mL 30.0-1 00.0 low Sugge stive of Defic iency : <20 ng/mL Sugge stive of Insuf ficie ncy: 20-29 ng/mL Sugge stive of Suffi cienc y: 30-10 0 ng/mL Sugge stive of Toxic ity: >150 ng/mL Not Available [facility] [address] [place], [address], 04/27/2022 03:46:20 04/26/20 22 04/26/2022 IMAGE GUIDE D PAP AND HPV REGAR DLESS image guided Pap, HPV regardless of Pap result SEE RESULT S BELOW CASE REPOR T: Cytol ogy Gynec ologi vance Repor t Case: [id number] Autho shivam g Provi sofi: Tony Amador MD Colle cted: 04/26 1622 Order ing Locat ion: [place] [facility] Recei andi: 04/27 0142 First Scree n: Strut z, Willi am, CT Speci men: Scree harrison Pap - Image d, Cervi x STATE MENT OF ADEQU ACY: Satis facto ry for evalu ation Trans forma tion zone compo nent prese nt FINAL DIAGN OSIS: Negat nolan for Intra epith elial Lesio n or Ginny tsai (NIL) . Elect young watkins wayne d by Karl hdz, Ghassan mojica, CT on 2021 at 12:35 PM ----- ----- ----- ----- ----- ----- ----- ----- ----- ----- ----- ----- ----- ----- ----- ----- ----- ---- HPV RESUL TS: HPV mRNA E6/E7 : No HPV mRNA Detec bg NOTE: This high risk HPV mRNA assay detec ts fourt een high- risk HPV types (16, 18, 31, 33, 35, 39, 45, 51, 52, 56, 58, 59, 66, 68) witho ut diffe renti ation . COMME NT: Note: This speci men was revie wed by a Cytot echno logis t and/o r Patho logis t (as indic ated in this repor t) after evalu ation using the Thinp rep Imagi ng Syste m. CLINI VANCE INFOR MATIO N: Menst rual Statu s: LMP (if appli cable ): Clini vance Histo ry/Pr eviou s Pap: Type of Neopl greg (if appli cable ): Signi fican t Clini vance Findi ngs: Other Histo ry: Hormo eagle (if appli cable ): PAP EDUCA EJREMY L NOTE: The Pap Test is a scree harrison test with an inher ent false negat nolan rate. Liqui d-bas ed sampl ing may decre ase, but will not elimi demetria, false negat nolan resul ts. A negat nolan resul t does not precl ude the prese nce and/o r devel opmen t of disea se, since the prese nce of abnor mal cells in the sampl e depen ds on the locat ion of the lesio n and sampl ing techn ique. Liana nued regul ar scree harrison is the best metho d of cance r preve ntion . If repor bg cytol ogic findi ng do not corre late with physi vance and/o r histo rical findi ngs, furth er inves tigat ion is recom tanisha d, as clini cr izquierdo nted. Not Available [facility] [address] [place], [address], 05/02/2022 13:38:04 02/15/20 23 02/14/2023 BACTE RIAL VAGIN OSIS PANEL RT-PC R, ONESW AB gardnerella vaginalis PCR Positi ve abnormal Swab- 1 Vag Cerv Not Available [facility] (Lab) [address], [place], [address], 02/19/2023 13:02:55 02/15/20 23 02/14/2023 BACTE RIAL VAGIN OSIS PANEL RT-PC R, ONESW AB atopobium vaginae PCR Positi ve abnormal Swab- 1 Vag Cerv Not Available [facility] (Lab) [address] [place], [address], 02/19/2023 13:02:55 02/15/20 23 02/14/2023 BACTE RIAL VAGIN OSIS PANEL RT-PC R, ONESW AB bacterial vaginosis associated bacteria 2 (bvab2) Positi ve abnormal Swab- 1 Vag Cerv Not Available [facility] (Lab) [address] [place], [address], 02/19/2023 13:02:55 02/15/20 23 02/14/2023 BACTE RIAL VAGIN OSIS PANEL RT-PC R, ONESW AB megasphaera species (type 1 and type 2) PCR Positi ve (Type1 ) abnormal Swab- 1 Vag Cerv Type1 :Posi tive Type2 :Nega tive. Not Available [facility] (Lab) [address] [place], [address], 02/19/2023 13:02:55 02/15/20 23 02/14/2023 BACTE RIAL VAGIN OSIS PANEL RT-PC R, ONESW AB lactobacillu s (bvpanel) PCR See Commen t Swab- 1 Vag Cerv L.cri spatu s: Negat nolan L.ladi senii : Negat nolan L.gas seri : Negat nolan L.ine rs : Negat nolan. Not Available [facility] (Lab) [address], [place], [address], 02/19/2023 13:02:55 02/15/20 23 02/14/2023 UROGE NITAL MYCOP LASMA /UREA PLASM A PANEL RT-PC R, ONESW AB nm bkr mycoplasma genitalium by RT-PCR Negati ve Swab- 1 Vag Cerv Not Available [facility] (Lab) [address] [place], [address], 02/19/2023 13:02:56 02/15/20 23 02/14/2023 UROGE NITAL MYCOP LASMA /UREA PLASM A PANEL RT-PC R, ONESW AB nm bkr mycoplasma hominis by RT-PCR Positi ve abnormal Swab- 1 Vag Cerv Not Available [facility] (Lab) [address], [place], [address], 02/19/2023 13:02:56 02/15/20 23 02/14/2023 UROGE NITAL MYCOP LASMA /UREA PLASM A PANEL RT-PC R, ONESW AB nm bkr ureaplasma urealyticum by RT-PCR Positi ve abnormal Swab- 1 Vag Cerv parC Fluor oquin olone mutat ions not detec t. Sugge stive of Fluor oquin olone susce ptibi lity. *Swab -1 320:U reapl asma ureal yticu m by Real- Time PCR (Refl ex to Fluor oquin olone Resis tance ) - The pyros equen cing assay detec ts the most frequ ently encou ntere d mutat ions that confe r Ureap lasma spp. Fluor oquin olone resis tance . Mutat ions withi n the conse rved Caitie lone Resis tance Deter minin g Regio n (QRDR ) of the parC gene: C248T (Ser8 3Leu) , C248G (Ser8 3Trp) , and T250C (Ser8 4Pro) [nucl eotid e mutat ion (asso ciate d amino -acid subst ituti on)] accou nt for the major ity of Fluor oquin olone resis tant isola baldo. Addit ional mutat ions or acqui red genes can resul t in Fluor oquin olone resis tance but are consi dered rare. (Renaldo et al. 2006. Trend s in the rates of resis tance of Ureap lasma ureal yticu m to antib iotic s and ident ifica tion of the mutat ion site in the caitie lone resis tance -dete rmini ng regio n in [facility]. FEMS 259: 181-1 86 Corrine et al. 2012 Chrom osoma l Mutat ions Respo nsibl e for Fluor oquin olone Resis tance in Ureap lasma Speci es in the [place]. Antim icrob . Agent s Chemo ther. 56: 2780- 2783 Breezy et al. 2015. In vitro activ ity of five caitie lones and trev sis of the caitie lone resis tance -dete rmini ng regio ns of gyrA, gyrB, parC, and parE in Ureap lasma parvu m and Ureap lasma ureal yticu m clini vance isola baldo from [facility] nts in [facility] . Antim icrob Agent s Chemo ther 59: 2358- 2364) . Not Available [facility] (Lab) [address], [place], [address], 02/19/2023 13:02:56 04/30/20 23 04/30/2023 IMAGE GUIDE D PAP AND HPV REGAR DLESS image guided Pap, HPV regardless of Pap result SEE RESULT S BELOW CASE REPOR T: Cytol ogy Gynec ologi vance Repor t Case: [id number] Autho shivam vines Provi sofi: Aydin Plummer Colle cted: 04/30 1521 SCREW MACHINE HAND Order ing Locat ion: [place] Patho logy Recei andi: 05/01 0948 First Scree n: Jany Desir ret, CT Rescr een: Yani elizabeth, Aggie ed, CT Speci men: Scree harrison Pap - Image d, Cervi x STATE MENT OF ADEQU ACY: Satis facto ry for evalu ation Trans forma tion zone compo nent prese nt FINAL DIAGN OSIS: Negat nolan for Intra epith elial Lesio n or Ginny gillespiecy (NIL) . Shift in cori sugge stive of bacte rial vagin osis. Elect surinderricardo watkins wayne d by Aggie Hoffmann ed, CT on 2022 at 9:55 PM ----- ----- ----- ----- ----- ----- ----- ----- ----- ----- ----- ----- ----- ----- ----- ----- ----- ---- HPV RESUL TS: HPV mRNA E6/E7 : No HPV mRNA Detec bg NOTE: This high risk HPV mRNA assay detec ts fourt een high- risk HPV types (16, 18, 31, 33, 35, 39, 45, 51, 52, 56, 58, 59, 66, 68) witho ut diffe renti ation . COMME NT: This speci men was revie wed by a Cytot echno logis t and/o r Patho logis t (as indic ated in this repor t) after evalu ation using the Thinp rep Imagi ng Syste m. CLINI VANCE INFOR MATIO N: Menst rual Statu s: LMP (if appli cable ): Clini vance Histo ry/Pr eviou s Pap: Type of Neopl greg (if appli cable ): Signi fican t Clini vance Findi ngs: Other Histo ry: Hormo eagle (if appli cable ): PAP EDUCA JEREMY L NOTE: The Pap Test is a scree harrison test with an inher ent false negat nolan rate. Liqui d-bas ed sampl ing may decre ase, but will not elimi demetria, false negat nolan resul ts. A negat nolan resul t does not precl ude the prese nce and/o r devel opmen t of disea se, since the prese nce of abnor mal cells in the sampl e depen ds on the locat ion of the lesio n and sampl ing techn ique. Liana nued regul ar scree harrison is the best metho d of cance r preve ntion . If repor bg cytol ogic findi ng do not corre late with physi vance and/o r histo rical findi ngs, furth er inves tigat ion is recom tanisha d, as clini cr izquierdo nted. Not Available [facility] (Lab) [address], [place], [address], 05/05/2023 22:59:11 04/30/20 23 04/30/2023 TRICH OMONA S VAGIN YANELIS (RRNA ) trichomonas vaginalis ribosomal RNA (rrna) Negati ve negati ve Not Available [facility] (Lab) [address], [place], [address], 05/05/2023 22:59:12 04/30/20 23 04/30/2023 CT/GC (MAIRA) , THINP REP VIAL chlamydia trachomatis, PCR Negati ve negati ve Not Available [facility] (Lab) [address], [place], [address], 05/05/2023 22:59:12 04/30/20 23 04/30/2023 CT/GC (MAIRA) , THINP REP VIAL neisseria gonorrhoeae, PCR Negati ve negati ve Not Available [facility] (Lab) [address], [place], [address], 05/05/2023 22:59:12 Result Notes None recorded. Problems Name Problem SNOMED Code Status Onset Date Resolution Date Notes Provider Name and Address Organization Details Recorded Time Exception roland large at [id number] Completed 9# 1oz Lolis Mina [facility], [facility] 2 13:46:35 Vaginal pain 34020072 Completed unremitti ng, moderate to severe, patient does not appear to be in distress. Lolis oakes [facility], [facility] 2 13:46:35 [id number] Completed 202102/23/2022 Lolis oakes null, [facility] 2 13:46:39 Problem Notes None recorded. Procedures Surgical History Date Name Laterality Status Provider Name and Address Organization Details Recorded Time 04/30/20 23 Date of Last Pap Smear completed [facility] 04/30/2023 10:59:15 01/04/20 21 excisional biopsy of breast mass completed [facility] 09/22/2021 16:51:09 05/05/20 18 excisional biopsy of breast mass completed [facility] 09/22/2021 16:51:03 08/05/19 17 Colposcopy completed [facility] 09/21/2021 10:37:25 08/05/19 07 termination of completed [facility] 12/18/2021 16:32:24 Imaging Results None recorded. Procedure Notes None recorded. Medical Equipment None Reported. Allergies No known drug allergies Medications Name Sig Start Date Stop Date Status Note LastModified by Organization Details LastModified Time celecoxib 200 mg capsule active Not Available Not Available Not Available amoxicillin 500 mg capsule TAKE 1 CAPSULE BY MOUTH TWICE DAILY WITH FOOD UNTIL ALL TAKEN 10/05 completed Not Available Not Available Not Available doxycycline hyclate 100 mg capsule TAKE 1 CAPSULE BY MOUTH TWICE DAILY WITH MEALS FOR 7 DAYS active Not Available Not Available No t Available cetirizine 10 mg tablet TAKE 1 TABLET BY MOUTH DAILY active Not Available Not Available No t Available ibuprofen 800 mg tablet active Not Available Not Available Not Available fluconazole 150 mg tablet TAKE 1 TABLET BY MOUTH 1 TIME. REPEAT IN 72 HOURS active Not Available Not Available No t Available hydrocodone 5 mg-acetamin ophen 325 mg tablet Take 1 tablet every 6 hours by oral route. 04/26 completed Not Available Not Available Not Available metronidazo le 0.75 % (37.5 mg/5 gram) vaginal gel INSERT 1 APPLICATO RFUL VAGINALLY EVERY DAY AT BEDTIME FOR 5 DAYS 06/11 completed Not Available Not Available Not Available terconazole 0.8 % vaginal cream INSERT 1 APPLICATO RFUL INTO VAGINA EVERY NIGHT AT BEDTIME FOR 3 DAYS 09/22 completed Not Available Not Available Not Available metronidazo le 500 mg tablet TAKE 1 TABLET BY MOUTH TWICE DAILY FOR 7 DAYS active Not Available Not Available No t Available acetaminoph en 500 mg tablet TAKE 2 TABLETS BY MOUTH EVERY 6 HOURS active Not Available Not Available No t Available amoxicillin 500 mg tablet TAKE 1 TABLET BY MOUTH TWICE DAILY WITH FOOD FOR 7 DAYS 06/14 completed Not Available Not Available Not Available oxycodone-a cetaminophe n 5 mg-325 mg tablet 09/22 completed Not Available Not Available Not Available cephalexin 500 mg capsule TAKE 1 CAPSULE BY MOUTH EVERY 6 HOURS FOR 10 DAYS 04/26 completed Not Available Not Available Not Available polymyxin B sulfate 10,000 unit-trimet hoprim 1 mg/mL eye drops INSTILL 1 DROP INTO LEFT EYE THREE TIMES DAILY FOR 7 DAYS 02/14 completed Not Available Not Available Not Available docusate sodium 100 mg capsule TAKE ONE CAPSULE BY MOUTH TWICE DAILY active Not Available Not Available No t Available sertraline 25 mg tablet TAKE 1 TABLET BY MOUTH EVERY DAY DIRECTED active Not Available Not Available No t Available gabapentin 100 mg capsule active Not Available Not Available Not Available ibuprofen 600 mg tablet TAKE 1 TABLET BY MOUTH THREE TIMES DAILY NEEDED FOR PAIN active Not Available Not Available No t Available levofloxaci n 500 mg tablet TAKE 1 TABLET BY MOUTH EVERY 24 HOURS WITH MEALS FOR 7 DAYS 04/30 completed Not Available Not Available Not Available methylpredn isolone 4 mg tablets in a dose pack FOLLOW PACKAGE DIRECTION S 10/05 completed Not Available Not Available Not Available Vitamin D2 1,250 mcg (50,000 unit) capsule Take 1 capsule every week by oral route. 02/14 completed Not Available Not Available Not Available ondansetron 4 mg disintegrat ing tablet active Not Available Not Available N ot Available fluticasone propionate 50 mcg/actuati on nasal spray,suspe nsion SPRAY ONCE IN EACH NOSTRIL ONCE AT BEDTIME. active Not Available Not Available No t Available sertraline 50 mg tablet TAKE 1 TABLET BY MOUTH DAILY active Not Available Not Available No t Available diazepam 5 mg tablet TAKE 1 TABLET BY MOUTH THREE TIMES DAILY NEEDED FOR ANXIETY active Not Available Not Available No t Available amoxicillin 875 mg-potassiu m clavulanate 125 mg tablet TAKE 1 TABLET BY MOUTH TWICE DAILY WITH FOOD FOR 5 DAYS 06/14 completed Not Available Not Available Not Available oxycodone 5 mg tablet TAKE 1 TABLET BY MOUTH EVERY 4 HOURS NEEDED FOR PAIN active Not Available Not Available No t Available cyclobenzap rine 5 mg tablet active Not Available Not Available Not Available Tylenol 04/26 completed Not Available Not Available Not Available Vitamin 02/14 completed Not Available Not Available Not Available Stimulant Laxative Plus 8.6 mg-50 mg tablet TAKE 1 TABLET BY MOUTH DAILY active Not Available Not Available No t Available Nuvessa 1.3 % (65 mg/5 gram) vaginal gel Insert 1 applicato rful every day by vaginal route at bedtime for 1 day. 02/14 completed Not Available Not Available Not Available Shira 0.25 mg-0.035 mg tablet TAKE 1 TABLET BY MOUTH EVERY DAY 09/22 completed Not Available Not Available Not Available Marissa 24 Fe 1 mg-20 mcg (24)/75 mg (4) tablet TAKE 1 TABLET BY MOUTH EVERY DAY WITH MEALS 04/30 completed Not Available Not Available Not Available Vitals Date Recorded Body height Systolic And Diastolic Provider Name and Address Organization Details Last Updated DateTime 10/05/2022 167.64 cm 118/60 mm[Hg] Shelly Torres [facility] 10/05/2022 15:14:14 Date Recorded Systolic And Diastolic Provider Name and Address Organization Details Last Updated DateTime 02/14/2023 120/72 mm[Hg] Salima Reyes, [facility]- [address], [place], [address], [facility] 02/14/2023 15:39:41 Date Recorded Body height Body mass index (BMI) Body weight Provider Name and Address Organization Details Last Updated DateTime 02/14/2023 167.64 cm 30 kg/m2 67416.18 g Lorna Jean Baptiste [facility] 02/14/2023 15:28:54 Date Recorded Body height Body mass index (BMI) Body weight Systolic And Diastolic Provider Name and Address Organization Details Last Updated DateTime 04/26/2022 167.64 cm 31 kg/m2 90312.74 g 137/85 mm[Hg] Carmel Hutchins [facility] 04/26/2022 15:58:40 Date Recorded Body height Body mass index (BMI) Body weight Systolic And Diastolic Provider Name and Address Organization Details Last Updated DateTime 04/30/2023 167.64 cm 28.6 kg/m2 75365.85 g 124/78 mm[Hg] Lizzie Nielsen [facility] 04/30/2023 10:58:06 Date Recorded Body height Body mass index (BMI) Body weight Provider Name and Address Organization Details Last Updated DateTime 06/11/2023 167.64 cm 28.6 kg/m2 16898.85 g Lizzie Nielsen [facility] 06/11/2023 10:28:25 Social History Question Answer Notes LastModified by Organizat ion Details LastModified Time Tobacco Smoking Status Former Smoker Lizzie [email or web address], [facility] 04/30/2023 10:58:30 Are You Blind Or Do You Have Difficulty Seeing? No [email or web address] Information n ot available 12/18/2021 What Is Your Level Of Caffeine Consumption? Moderate Information not available 02/14/2023 How Much Tobacco Do You Chew? None Information not available 02/14/2023 In The 14 Days Before Symptom Onset, Have You Had Close Contact With A Laboratory-confirm ed COVID-19 While That Case Was Ill? No [email or web address] Information n ot available 12/18/2021 In The 14 Days Before Symptom Onset, Have You Had Close Contact With A Person Who Is Under Investigation For COVID-19 While That Person Was Ill? No [email or web address] Information not available 12/18/2021 Have You Been To An Area Known To Be High Risk For COVID-19? No [email or web address] Information not available 12/18/2021 Are You Deaf Or Do You Have Serious Difficulty Hearing? No [email or web address] Information not available 12/18/2021 What Type Of Diet Are You Following? REGULAR [email or web address] Information n ot available 01/09/2022 What Is The Highest Grade Or Level Of School You Have Completed Or The Highest Degree You Have Received? [id number] Information not available 02/14/2023 Are There Any Guns Present In Your Home? No Information not available 02/14/2023 Have You Ever Been Counseled For Unhealthy Alcohol Use? No [email or web address] Information not available 04/30/2023 Do You Use Protection During Sex? No Information not available 02/14/2023 Do You Use Your Seat Belt Or Car Seat Routinely? Yes Information not available 12/18/2021 Do You Have Smoke And Carbon Monoxide Detectors In Your Home? Yes [email or web address] Information not available 12/18/2021 How Much Tobacco Do You Smoke? No Information not available 02/14/2023 Do You Use Sunscreen Routinely? No Information not available 02/14/2023 Has Tobacco Cessation Counseling Been Provided? No Information not available 04/30/2023 Have You Used IV Drugs? No Information not available 02/14/2023 Do You Have Difficulty Walking Or Climbing Stairs? No [email or web address] Information not available 04/30/2023 Sex: Unknown Functional Status Question Answer Note LastModified by Organizat ion Details LastModified Time Do you use any illicit or recreational drugs? Yes Information not available 02/14/2023 Do you or have you ever used any other forms of tobacco or nicotine? No Information not available 04/30/2023 What is your level of alcohol consumption? Occasional [email or web address] Information not available 12/18/2021 Are you able to walk independently without assistance or assistive devices? YESWOREST [email or web address] Information not available 12/18/2021 Are you able to care for yourself independently? Yes [email or web address] Information not available 04/30/2023 What is your occupation? [employer] [email or web address] Information not available 04/30/2023 Do you have difficulty dressing, bathing, grooming, or toileting? No [email or web address] Information not available 04/30/2023 What is your exercise level? Moderate Information not available 02/14/2023 Mental Status Question Answer Note LastModified by Organization D etails LastModified Time Do you feel stressed (tense, restless, nervous, or anxious, or unable to sleep at night)? [id number] [email or web address] Information not available 12/18/2021 Family History Relationship Description Onset Age of this Age Resolved Age Notes LastModified by Organization Details LastModified Time Father Hypertensive disorder [email or web address] Not available 2021 10:25:25 Mother Malignant neoplasm of breast 30 [email or web address] Not available 04/30 10:58:29 Mother Malignant neoplasm of bone [email or web address] Not available 04/30 10:58:29 Maternal Grandfather Malignant neoplasm of bone [email or web address] Not available 04/30 10:58:29 Medical History Condition Response Allergies (Food, seasonal, environmental ) N Other N Breast Cancer N Drug/Latex Allergies/Reactions N Blood Transfusion N Lung Disease N Dermatologic Disorders N Defects or Inherited Disease N Breast Problem N Gestational Diabetes N Hematologic disorders N Anesthesia Complications N History of STI Y Deep Vein Thrombosis N Polycystic ovary syndrome N Anxiety Disorder Y Autoimmune disease N Arthritis N Polyps N Infertility N History of abnormal pap Y Acid Reflux (GERD) N Cancer N Varicosities N Stroke N Neurologic/Epilepsy N Endometriosis N High Cholesterol N Fibromyalgia N Headaches N Kidney Disease N Heart Problems N Kidney or Bladder Problems N Thyroid Problems N GI Problems N Eating Disorder N Anemia N Art (IVF or FET) N Psychiatric Illness N Ovarian Cancer N Diabetes N Pulmonary (TB, Asthma) N Hepatitis/Liver Disease N No Past Medical History N Eczema N Urinary Tract Infection N Abuse/Domestic Violence N Asthma N Trauma/Violence N Depression/ depression Y Heart Disease N Pre-Eclampsia N Hypertension N Osteoporosis N Thrombophilias N Gynecological History Statement/Question Response Abnormal Pap Yes Date of Last Mammogram Flow Moderate Date of LMP 06/09/2023 N Was last menstrual period normal Y STIs/STDs Yes HPV Vaccine Y Duration of Flow (days) 6 Current Control Method Partner Vas ectomy Age at First Child 24 Frequency of Cycle (Q days) 29 Sexually Active? Y Menses Monthly Y Date of DEXA bone scan Age of first menstrual cycle 14 Date of Last Pap Smear 04/30/2023 Sexual Problems? N Desired Control Method None LMP Approximate N Obstetrics History GPAL:G 5 P 2 0 3 2 Type Value Full Term 2 Induced 1 Spontaneous 2 Living 2 Total 5 Past Encounters Encounter ID Performer Location Encounter Start Date Encounter Closed Date Diagnosis/Indication Diagnosis SNOMED-CT Code Diagnosis ICD10 Code Diagnosis IMO Codes Diagnosis Note [id number] MD Jessi Allen [address],[place] [address] 09/22/2021 16:23:39 09/22/2021 17:28:47 Chronic pelvic pain of female 084622230 R10.2 Routine an tenatal care 924626004 Z34.82 [id number] MD Jessi Allen [address],[place] [address] 10/05/2021 16:18:42 10/05/2021 17:38:25 screening 858460832 Z36.3 [id number] Nayan Amador MD [facility] [address],[place] [address] 10/05/2021 16:19:02 10/06/2021 10:25:43 Routine care 279347660 Z34.82 [id number] MD Jessi Allen [address],[place] [address] 10/18/2021 17:58:18 10/19/2021 16:10:49 Routine care 713725136 Z34.82 [id number] MD Jessi Allen [address],[place] [address] 11/06/2021 11:34:52 11/06/2021 12:29:43 Routine care 238316816 Z34.82 [id number] MD Jessi Allen [address],[place] [address] 12/06/2021 16:36:30 12/06/2021 17:22:47 Routine care 556852242 Z34.82 [id number] MD Jessi Allen [address],[place] [address] 12/18/2021 15:44:58 12/18/2021 16:44:29 Uterine size for dates discrepancy 733961300 O26.843 Z3A.35 [id number] [facility] [address],[place] [address] 12/18/2021 15:52:11 12/19/2021 17:07:10 Routine care 621901412 Z34.93 [id number] MD Jessi Allen [address],[place] [address] 12/27/2021 15:58:31 12/27/2021 16:51:06 Routine care 723954980 Z34.82 [id number] MD Jessi Allen [address],[place] [address] 01/05/2022 14:06:12 01/08/2022 15:08:53 Routine care 066509861 Z34.82 [id number] MD Jessi Allen [address],[place] [address] 01/05/2022 15:14:30 01/05/2022 16:16:21 Reduced movement 225226257 O36.8199 [id number] Ofelia Leone [facility] [address],[place] [address] 01/09/2022 11:21:06 01/10/2022 17:38:58 Routine care 185226141 Z34.93 [id number] MD Jessi Allen [address],[place] [address] 02/01/2022 12:05:12 02/02/2022 15:59:59 Abdominal pain 48527778 R10.9 This patient is a 31-year-ol d multiparou s female who recently delivered a term . She is has some abdominal pain. Appears to be cutaneous pain in the pattern of a dermatome on her right side at the mid abdomen. The pain is gotten better since she went to the emergency department . We discussed the pain for time. She was examined it was and a benign exam of the abdomen. We agreed to observe this pain. It may be a mild injury to the cutaneous nerve from the or perhaps very mild shingles infection [id number] Nayan Amador MD [facility] [address],[place] [address] 02/20/2022 12:49:54 02/20/2022 13:52:04 care 541508597 Z39.2 this patient is a 31-year-ol d multiparou s female who had a vaginal approximat gloria 4 weeks ago. She is bottle feeding, sure her bleeding is stopped. She has had intercours e. They used a condom. Her did get a vasectomy. Her mood is good. Her baby is doing well. She will follow-up in the next 2 months for well-woman exam [id number] Nayan Amador MD [facility] [address] [address] 04/26/2022 15:45:34 04/26/2022 16:58:18 Gynecologic examination 67281244 Z01.419 Annual gynecologi vance exam performed. Patient will come back in a year unless there are new symptoms. Suggest Calcium with Vitamin D if not eating in diet. Patient advised to get annual flu shot. Recommend yearly physicals and preform monthly breast exams. Genetic testing is available for patients with family history of cancer. Engage in safe sexual practices, use condoms. Encouraged to have daily exercise. Avoid tobacco and illicit drugs, moderation of alcohol. If BMI greater than 25 dietary consult advised. If you have any questions please call or email. Cholestero l - Today Pap - today [id number] ZENON [facility] [address] [address] 04/30/2023 10:47:25 04/30/2023 17:16:58 Gynecologic examination 93757965 Z01.419 Take Calcium with Vitamin D 1200mg daily if not receiving in daily diet. It is strongly advised to have an annual flu shot and up can obtain at most pharmacies . If you have not had a TDap shot in the last 10 years you should obtain one as well. Discussed with patient & provided with informatio n regarding Gardisil vaccine to prevent the 4 strains for HPV that cause cervical cancer if under age 26. Encourage safe sexual practices, to use condoms and limit partners if not already in a monogamous relationsh ip. Do monthly self breast exams. Have mammogram yearly or every other year depending on family history. BRCA testing is now available for patients with strong genetic history of female cancer. If interested contact the office. Engage in daily exercise of low impact aerobic exercise 45-60 minutes 4-5 times weekly. Avoid tobacco and illicit drugs as well as using moderation with alcohol intake less than 1-2 8 oz beverages daily. This lifestyle behavior pattern will lead to less health conditions and longer life span. If BMI greater than 25 weight watchers or dietary consult advised. Patient received above instructio ns, and questions have been answered. If you have any questions please call or respond to this email. Patient was made aware of the patient portal and may obtain a paper copy of today's plan if desired.Pa p/hpv sentSTD Screendecl inedGeneti c Screen discussedC olon Screen naDexa Screen naRoutine Labs PCP Premenstru al tension syndrome 29162767 N94.3 Today we discussed using sertraline for help with PMS.She feels she generally did well on when she was previously on this one but period was not as regulated she would've liked; stopped it. Counseled on r/b's, most common side effects of this therapy with instructio ns to stop medication with any significan t abnormal change in mood especially with thoughts of suicide/se lf-harm/scales rm to others. Understand ing verbalized .RTO x 6-8wk med check [id number] Salima Reyes , [facility] [address],[facility] [place] [address] 10/05/2022 15:06:06 10/05/2022 15:53:12 Vaginitis 50606033 N76.0 Suspect BV on examWe agreed to do Nuvessa x 1 night.Then , needs to do 5 nights of BA.Then, return to 2x/wk BA use for a minimum of 1mo-3mos.I f still having issues encouraged to reach out to Dr. Falguni [facility] vulvar care.Remin ded her of VCG's & adhering to these more strictly.U doyle buchanan verbalized . Time spent in visit is a total of 15 mins with at least 50% of visit consisting of counseling and review of plan of care. [id number] Salima Reyes [facility] [address],[facility] [place] [address] 02/14/2023 15:18:18 02/14/2023 16:36:36 Vaginitis 63359839 N76.0 Suspect BV on examStill using boric acid but does not feel it helps to keep BV at bay.Uses after sex & after her cycle as well as twice weekly but still gets BVUses VCG's.We will use doxycyclin e and send extended panel.IF the extended panel returns and is +urea or mycoplasma then Moxifloxac in 400mg daily x 7 days following the completion of Doxy (per CDC guidelines ).May need to return to [facility]. Time spent in visit is a total of 30 mins with at least 50% of visit consisting of counseling and review of plan of care. Premenstru al tension syndrome 64774336 N94.3 Today we discussed using OCP for help with PMS.She feels she generally did well on when she was previously on this one.Would like to restart & see how it goes.Will f/u at her upcoming wellness visit. Discussed all control options in great detail. Pt would like to start ocp. She is aware of the risks and benefits. She does not have any medical condition that is contraindi cated with the use of estrogen containing control. Pt will start her pills on the first saturday following the start of her period. She is aware it is not effective for control the first month. She is also aware of the importance of taking at the same time every day. Encouraged use of condoms as the pill does not protect against STD's. Will return in 3 months for med check. Consent was read and signed. Pt verbalized understand ing. [id number] Salima Reyes [facility] [address] [address] 06/11/2023 10:27:23 06/11/2023 11:13:23 Premenstrual tension syndrome 35115119 N94.3 Patient is here today for a medicaton check of sertraline for PMS. She voices goals of therapy have been met with use of this therapy. She denies neg side effects after 1wk; initially had nausea x 5 days which has resolved. She is eating, drinking, sleeping well; moods are stable well regulated. Wishes to continue this method of therapy. Appropriat e to continue this medication .RF sent.RTO x 6mos-1yr Total time of Tele-healt h visit was approx 15 mins with >50% consisting of counseling , education of patient's plan of care. Health Concerns Section Related Observation LastModified by Organization Detai ls LastModified Time None Recorded Concern Status LastModified by Organization Details LastModified Time None Recorded Advance Directives Directive None Recorded Payers Insurance Date Sequence Insurance Name Policy Number Policy Puentes Covered Member ID Puentes Member ID Guarantor Name 10/04/2022 1 [facility] [employer] - [employer] Libra Fontanez [id number] Libra Fontanez 12/18/2021 1 [employer] Libra Fontanez [id number] Libra Fontanez 06/15/2025 1 [employer] [facility] (MEDICAID HMO) [id number] Libra Fontanez [id number] Libra Fontanez Notes Date Note Type Note Provider Name and Address Organization Details Recorded Time 04/26/20 22 text/htm l Annual GYNReported by PatientHistoryFor history, patient reportsno gynecologic complaints.Genitourinary symptomsFor menstrual cycle, patient reportsnormal menses. For urinary symptoms, patient reportsno hematuriaandno incontinence. For vulva, patient reportsno genital lesion. For vagina, patient reportsnormal vaginal discharge.Breast symptomsFor breast, patient reportsno breast painandno breast lump.ContraceptionFor current contraception, patient reportspartner had vasectomy.Endocrine symptomsFor sexual complaints, patient reportsno sexual complaintsandno pain during intercourse. For menopausal symptoms, patient reportsno menopausal symptoms.Psychological symptomsFor psychological symptoms, patient reportsno depressionandno anxiety.Preventative measuresFor preventive measures, patient reportsencourage self breast examinationandencourage regular exercise. Nayan Amador MD [address], [place], [address], [facility] 04/26/2022 16:26:44 10/06/19 23 text/htm l Vaginal/Vulvar ProblemReported by PatientHere today for possible BV.Hx of recurrent BVHadn't had one in 8mos (prior to of her child).Now with BV infection for a few days now.Tried to fight it off with Boric acid but states it does not seem to be helping.Used to see [facility].Was doing well so has not needed to f/u.Questions what she can do now? +odor+d/c+irritationNeg new sexual partnerNeg pain of abd/pelvis/flankNeg urinary sx'sNeg GI sx'sNeg N/V/F/C/DROS as noted in the HPI [facility]ima [facility]yes [facility] [address], [place], [address], [facility] 10/05/2022 15:36:30 02/15/20 23 text/htm l Vaginal/Vulvar ProblemReported by PatientHere today for +d/c, odor, irritation suspects BV.Hx recurrent BVUses Boric acid but still feels will have break through infections.Monogamous-decli kaleb std screening. Neg pain of abd/pelvis/flankNeg urinary sx'sNeg GI sx'sNeg N/V/F/C/DNeg Vag itchingROS as noted in the HPI PMS:Seeing counselorSuggested possible PMDD/PMSOccurs most prominently 7-10 days prior to onset of her cycle but can sometimes carry over 2-3 days when cycle starts.Hx of PPD but no chronic MDD/anxiety issues.Under a lot of stress with school, being a mom, spouse. Salima Reyes [facility] [address], [place], [address], [facility] 02/14/2023 16:02:01 04/30/20 23 text/htm l Annual GYNReported by PatientGenitourinary symptomsFor menstrual cycle, patient reportsnormal menses. For urinary symptoms, patient reportsno hematuriaandno incontinence. For vulva, patient reportsno genital lesion. For vagina, patient reportsnormal vaginal discharge.Breast symptomsFor breast, patient reportsno breast pain,no breast lump, andno nipple discharge.ContraceptionFor current contraception, patient reportssatisfied with current contraceptionandpartner had vasectomy.Endocrine symptomsFor sexual complaints, patient reportsno sexual complaints,no pain during intercourse, andnormal libido. For menopausal symptoms, patient reportsno menopausal symptomsandnormal vaginal lubrication.Psychological symptomsFor psychological symptoms, patient reportspmdd prior to menstruation (3-10 days)but reportsno depressionandno anxiety. Salima Reyes [facility] [address], [place], [address], [facility] 04/30/2023 16:16:32 06/11/20 23 text/htm l ROS as noted in the [facility] Televisit for medication check of Sertraline for PMS/Anxiety. Salima Reyes [facility] [address], [place], [address], [facility] 06/11/2023 11:12:31 OBGyn Episode Ob Episode Information Episode Created Date Number of Fetuses Patient Bloodtype Patient rh Status Prepregnancy Weight lbs Domestic Partner Domestic Partner Phone Father Name Tests Superintendent Status 09/22/19 22 1 O Positive CLOSED Fetus Data First Name Last Name Admitted to NICU Weight (g) Sex Living Outcome Pediatric Complications Fetus ID Race Codes Race Delivery Type 3827.18 25 M true Full Term [id number] Vaginal Delivery Problems Problem Notes UDS + THC in records Problem Name Start Date End Date Resolution Snomed Code Not e Exceptionally large at [id number] 9# 1oz Vaginal pain [id number] unremit ting, moderate to severe, patient does not appear to be in distress. Vitor Calculation Initial Vitor Date Initial Exam Date Initial Exam Provider Initial Ultrasound Date Last Menstrual Period Date Ultra Sound Weeks Gestation 01/22/2022 09/22/2021 08/24/2021 04/17/2021 18 Eighteen To Twenty Week Vitor Update Ultra Sound Date Fundal Height At Umbil Quickening Date Ultra Sound Latest Weeks Gestation Final Vtior Confirmed By Final Vitor Confirmed Date Final Vitor Date Ultra Sound Latest Days Gestation 0 [email or web address] 09/22/2021 01/23/20 22 0 Pre-gloria Flowsheet Flowsheet Date 09/22/2021 Lincoln Score Blood Edema Fundus Height Fundus Units Glucose Ketones Leukocytes Nitrite Labor Signs Protein Cervic Dilation Cervic Effacement Cervic Station 22 Type Weight in lbs Pre/Post Dialysis Refused Weight 195.018267493969 BP Diastolic BP Location Tested BP Systolic BP Type 77 R arm 124 sitting Fetus Heart Rate Present A 145 Fetus Movement Comments this patient is a 30-year-ol d 5 para 1031 at 22 weeks gestation presents for transfer of care. She had a bcwmh-bla-buyrphmrotq-age baby that was 9 lb and 1 oz. She pushed for 45 minutes. She has an unremarkable medical and surgical history. We discussed the remainder of care. She did not have genetic testing. She had is dated by her last menstrual period and 18 week ultrasound. She is vaccinated for COVID. To begin routine care. She has all her labs. Flowsheet Date 10/05/2021 Lincoln Score Blood Edema Fundus Height Fundus Units Glucose Ketones Leukocytes Nitrite Labor Signs Protein Cervic Dilation Cervic Effacement Cervic Station Type Weight in lbs Pre/Post Dialysis Refused BP Diastolic BP Location Tested BP Systolic BP Type Fetus Heart Rate Present Fetus Movement Comments Flowsheet Date 10/05/2021 Lincoln Score Blood Edema Fundus Height Fundus Units Glucose Ketones Leukocytes Nitrite Labor Signs Protein Cervic Dilation Cervic Effacement Cervic Station 24 none trace Type Weight in lbs Pre/Post Dialysis Refused Weight 199.002620203019 BP Diastolic BP Location Tested BP Systolic BP Type 82 136 Fetus Heart Rate Present A 145 Fetus Movement A Yes Comments complaints, completed normal anatomic survey. Average growth, round ligament pain Flowsheet Date 10/18/2021 Lincoln Score Blood Edema Fundus Height Fundus Units Glucose Ketones Leukocytes Nitrite Labor Signs Protein Cervic Dilation Cervic Effacement Cervic Station 26 Type Weight in lbs Pre/Post Dialysis Refused Weight 199.974781516737 BP Diastolic BP Location Tested BP Systolic BP Type 75 R arm 127 sitting Fetus Heart Rate Present A 134 Fetus Movement Comments few complaints,, fatigue, ab dominal discomfort, Flowsheet Date 11/06/2021 Lincoln Score Blood Edema Fundus Height Fundus Units Glucose Ketones Leukocytes Nitrite Labor Signs Protein Cervic Dilation Cervic Effacement Cervic Station 30 Type Weight in lbs Pre/Post Dialysis Refused Weight 204.918973335353 BP Diastolic BP Location Tested BP Systolic BP Type 64 R arm 93 sitting Fetus Heart Rate Present A 134 Fetus Movement Comments patient has vaginal pain juan pablo t is sharp. It is unremitting. It is moderate to severe. She does not seem to be in distress. Again we talked about pain management options. She was prescribed narcotic but she is unwilling to take it. She is waiting on a support belt. This is likely nerve pain in the vagina and due to the and nerve compression. no role for ultrasound evaluation here. Flowsheet Date 12/06/2021 Lincoln Score Blood Edema Fundus Height Fundus Units Glucose Ketones Leukocytes Nitrite Labor Signs Protein Cervic Dilation Cervic Effacement Cervic Station 38 Type Weight in lbs Pre/Post Dialysis Refused Weight 217.664803712384 BP Diastolic BP Location Tested BP Systolic BP Type 77 R arm 124 sitting Fetus Heart Rate Present A 145 Fetus Movement Comments size larger than dates. Grow th ultrasound. Flowsheet Date 12/18/2021 Lincoln Score Blood Edema Fundus Height Fundus Units Glucose Ketones Leukocytes Nitrite Labor Signs Protein Cervic Dilation Cervic Effacement Cervic Station Type Weight in lbs Pre/Post Dialysis Refused BP Diastolic BP Location Tested BP Systolic BP Type Fetus Heart Rate Present Fetus Movement Comments Flowsheet Date 12/18/2021 Lincoln Score Blood Edema Fundus Height Fundus Units Glucose Ketones Leukocytes Nitrite Labor Signs Protein Cervic Dilation Cervic Effacement Cervic Station neg trace none trace Type Weight in lbs Pre/Post Dialysis Refused Weight 216.273857823626 BP Diastolic BP Location Tested BP Systolic BP Type 76 117 Fetus Heart Rate Present Fetus Movement A Yes Comments U/S today for size greater t adhikari dates. Appropriate growth. Doing well. Labor precautions. Flowsheet Date 12/27/2021 Lincoln Score Blood Edema Fundus Height Fundus Units Glucose Ketones Leukocytes Nitrite Labor Signs Protein Cervic Dilation Cervic Effacement Cervic Station 38 2cm 70% -2 Type Weight in lbs Pre/Post Dialysis Refused Weight 217.047966504936 BP Diastolic BP Location Tested BP Systolic BP Type 76 R arm 121 sitting Fetus Heart Rate Present A 130 Fetus Movement Comments group B strep done, very low head, great exam. Flowsheet Date 01/05/2022 Lincoln Score Blood Edema Fundus Height Fundus Units Glucose Ketones Leukocytes Nitrite Labor Signs Protein Cervic Dilation Cervic Effacement Cervic Station 37 Type Weight in lbs Pre/Post Dialysis Refused Weight 221.056667153854 BP Diastolic BP Location Tested BP Systolic BP Type 77 R arm 137 sitting Fetus Heart Rate Present A 145 Fetus Movement Comments Patient is very uncomfortabl e, appears to be in moderate distress. Was sent to Labor and delivery to rule out labor Flowsheet Date 01/05/2022 Lincoln Score Blood Edema Fundus Height Fundus Units Glucose Ketones Leukocytes Nitrite Labor Signs Protein Cervic Dilation Cervic Effacement Cervic Station Type Weight in lbs Pre/Post Dialysis Refused BP Diastolic BP Location Tested BP Systolic BP Type Fetus Heart Rate Present Fetus Movement Comments Flowsheet Date 01/09/2022 Lincoln Score Blood Edema Fundus Height Fundus Units Glucose Ketones Leukocytes Nitrite Labor Signs Protein Cervic Dilation Cervic Effacement Cervic Station neg trace 38 none trace Type Weight in lbs Pre/Post Dialysis Refused Weight 220.361201549655 BP Diastolic BP Location Tested BP Systolic BP Type 76 115 Fetus Heart Rate Present A 144 Fetus Movement A Yes Comments patient is having cramping, pain, discharge, and swelling.Occasional contractions. Labor precautions discussed. History of LGA baby. Pushed for 45 minutes. Pt states she did have to do some rocking to get baby out. Unsure if dystocia but does sound suspicious. Decided to proceed with MIL on Saturday. EFW at 36 weeks was 6lbs. Flowsheet Date 02/01/2022 Lincoln Score Blood Edema Fundus Height Fundus Units Glucose Ketones Leukocytes Nitrite Labor Signs Protein Cervic Dilation Cervic Effacement Cervic Station Type Weight in lbs Pre/Post Dialysis Refused Weight 200.279622928716 BP Diastolic BP Location Tested BP Systolic BP Type 94 R arm 153 sitting 82 L arm 143 sitting Fetus Heart Rate Present Fetus Movement Comments Flowsheet Date 02/09/2022 Lincoln Score Blood Edema Fundus Height Fundus Units Glucose Ketones Leukocytes Nitrite Labor Signs Protein Cervic Dilation Cervic Effacement Cervic Station Type Weight in lbs Pre/Post Dialysis Refused BP Diastolic BP Location Tested BP Systolic BP Type Fetus Heart Rate Present Fetus Movement Comments Libra called and stated t hat she has been taking antibiotics for almost 2 full weeks from her hospital visit and she now has a yeast infection. She requested 1 Diflucan tablet so that she can get past this. Diflucan sent to her pharmacy. Flowsheet Date 02/20/2022 Lincoln Score Blood Edema Fundus Height Fundus Units Glucose Ketones Leukocytes Nitrite Labor Signs Protein Cervic Dilation Cervic Effacement Cervic Station Type Weight in lbs Pre/Post Dialysis Refused Weight 198.301847250368 BP Diastolic BP Location Tested BP Systolic BP Type 77 R arm 132 sitting Fetus Heart Rate Present Fetus Movement Comments Menstrual History Last Menstrual Date Menses Monthly On Bcp Conception Prior Menses Frequency Hcg Plus Date Menarche Onset Age 0904/17/2021 Genetic Screening And Infection History Question Response Note Mental Retardation/Autism false Patient's Age Will Be 35 Years Or Older At Estim ated Date of Delivery false Thalassemia (Divehi, Italian, Mediterranean, Or Background): MCV < 80 false Neural Tube Defect (Meningomyelocele, Spina Bifi da, Or Anencephaly) false Congenital Heart Defect false Down Syndrome false Mando-Sachs (eg, Buddhism, Cajun, English-Senegalese) f alse Morro Disease false Sickle Cell Disease Or Trait () false Hemophilia Or Other Blood Disorders false Muscular Dystrophy false Cystic Fibrosis false Eureka's Chorea false Intellectual Disability/Autism false If Yes, Was Person Tested For Fragile X? false Other Inherited Genetic Or Chromosomal Disorder false Maternal Metabolic Disorder (eg, Type 1 Diabetes , PKU) false Patient Or Baby's Father Had A Child With Defects Not Listed Above false Recurrent Loss, Or A Stillbirth false Medications (including Suppl ements, Vitamins, Herbs, OTC Drugs), Illicit/Recreational Drugs, Alcohol false If Yes, Agent(s) And Strength/Dosage false Any Other Genetic History false Live With Someone With TB Or Exposed To TB false Patient Or Partner Has History Of Genital Herpes false Rash Or Viral Illness Since Last Menstrual Perio d false History Of STD, Gonorrhea, Chlamydia, HPV, Syphi lis false Other Infection History false History of HIV false History of Hepatitis false Prior GBS-infected child false Hemoglobinopathy Or Carrier false Other Structural Defect false Recent Travel History Outside of Country false Delivery Information Delivery Date Delivery Type Labor Anesthesia Weeks Gestation Incision Type Labor Labor Length Hrs Delivered By Post Complications Tubal Sterilization Discharge Date Comments 2 Induce d Regional-Ep idural 39 Nayan Montgomery MD Discharge Information Feeding Method Contraceptive Method Maternal HG B and HCT Levels Ob Episode Information Episode Created Date Number of Fetuses Patient Bloodtype Patient rh Status Prepregnancy Weight lbs Domestic Partner Domestic Partner Phone Father Name Tests Superintendent Status 09/22/19 22 1 CLOSED Fetus Data First Name Last Name Admitted to NICU Weight (g) Sex Living Outcome Pediatric Complications Fetus ID Race Codes Race Delivery Type 4110.45 0704 M Full Term [id number] Vaginal Delivery Vitor Calculation Initial Vitor Date Initial Exam Date Initial Exam Provider Initial Ultrasound Date Last Menstrual Period Date Ultra Sound Weeks Gestation 0 Eighteen To Twenty Week Vitor Update Ultra Sound Date Fundal Height At Umbil Quickening Date Ultra Sound Latest Weeks Gestation Final Vitor Confirmed By Final Vitor Confirmed Date Final Vitor Date Ultra Sound Latest Days Gestation 0 0 Menstrual History Last Menstrual Date Menses Monthly On Bcp Conception Prior Menses Frequency Hcg Plus Date Menarche Onset Age Delivery Information Delivery Date Delivery Type Labor Anesthesia Weeks Gestation Incision Type Labor Labor Length Hrs Delivered By Post Complications Tubal Sterilization Discharge Date Comments 5 40.1 Evangelist Discharge Information Feeding Method Contraceptive Method Maternal HG B and HCT Levels Ob Episode Information Episode Created Date Number of Fetuses Patient Bloodtype Patient rh Status Prepregnancy Weight lbs Domestic Partner Domestic Partner Phone Father Name Tests Superintendent Status 09/22/19 22 1 CLOSED Fetus Data First Name Last Name Admitted to NICU Weight (g) Sex Living Outcome Pediatric Complications Fetus ID Race Codes Race Delivery Type , Induced [id number] Vitor Calculation Initial Vitor Date Initial Exam Date Initial Exam Provider Initial Ultrasound Date Last Menstrual Period Date Ultra Sound Weeks Gestation 0 Eighteen To Twenty Week Vitor Update Ultra Sound Date Fundal Height At Umbil Quickening Date Ultra Sound Latest Weeks Gestation Final Vitor Confirmed By Final Vitor Confirmed Date Final Vitor Date Ultra Sound Latest Days Gestation 0 0 Menstrual History Last Menstrual Date Menses Monthly On Bcp Conception Prior Menses Frequency Hcg Plus Date Menarche Onset Age Delivery Information Delivery Date Delivery Type Labor Anesthesia Weeks Gestation Incision Type Labor Labor Length Hrs Delivered By Post Complications Tubal Sterilization Discharge Date Comments 7 Discharge Information Feeding Method Contraceptive Method Maternal HG B and HCT Levels Ob Episode Information Episode Created Date Number of Fetuses Patient Bloodtype Patient rh Status Prepregnancy Weight lbs Domestic Partner Domestic Partner Phone Father Name Tests Superintendent Status 09/22/19 22 1 CLOSED Fetus Data First Name Last Name Admitted to NICU Weight (g) Sex Living Outcome Pediatric Complications Fetus ID Race Codes Race Delivery Type , [place] [id number] Vitor Calculation Initial Vitor Date Initial Exam Date Initial Exam Provider Initial Ultrasound Date Last Menstrual Period Date Ultra Sound Weeks Gestation 0 Eighteen To Twenty Week Vitor Update Ultra Sound Date Fundal Height At Umbil Quickening Date Ultra Sound Latest Weeks Gestation Final Vitor Confirmed By Final Vitor Confirmed Date Final Vitor Date Ultra Sound Latest Days Gestation 0 0 Menstrual History Last Menstrual Date Menses Monthly On Bcp Conception Prior Menses Frequency Hcg Plus Date Menarche Onset Age Delivery Information Delivery Date Delivery Type Labor Anesthesia Weeks Gestation Incision Type Labor Labor Length Hrs Delivered By Post Complications Tubal Sterilization Discharge Date Comments 2 Discharge Information Feeding Method Contraceptive Method Maternal HG B and HCT Levels Ob Episode Information Episode Created Date Number of Fetuses Patient Bloodtype Patient rh Status Prepregnancy Weight lbs Domestic Partner Domestic Partner Phone Father Name Tests Superintendent Status 09/22/19 22 1 CLOSED Fetus Data First Name Last Name Admitted to NICU Weight (g) Sex Living Outcome Pediatric Complications Fetus ID Race Codes Race Delivery Type , [place] o[place] [id number] Vitor Calculation Initial Vitor Date Initial Exam Date Initial Exam Provider Initial Ultrasound Date Last Menstrual Period Date Ultra Sound Weeks Gestation 0 Eighteen To Twenty Week Vitor Update Ultra Sound Date Fundal Height At Umbil Quickening Date Ultra Sound Latest Weeks Gestation Final Vitor Confirmed By Final Vitor Confirmed Date Final Vitor Date Ultra Sound Latest Days Gestation 0 0 Menstrual History Last Menstrual Date Menses Monthly On Bcp Conception Prior Menses Frequency Hcg Plus Date Menarche Onset Age Delivery Information Delivery Date Delivery Type Labor Anesthesia Weeks Gestation Incision Type Labor Labor Length Hrs Delivered By Post Complications Tubal Sterilization Discharge Date Comments 0 Discharge Information Feeding Method Contraceptive Method Maternal HG B and HCT Levels
--- OUTSIDE RECORDS SUMMARY | 2025-06-15 13:54 | XMS_ITS | Encounter Summary ---
Author Organization [facility] Healthcare Address [address] [place] [address] Care Team Providers Care Mastic Floor Layer Name Role Phone No, Physician Primary Care Provider [phone] Harpal Donis MD Primary Care Provider [phone] No, Physician Primary Care Provider [phone] Unknown, Notinfile Primary Care Provider Unavail able No, Physician Primary Care Provider [phone] Ludin Bowling MD Primary Care Provider [phone] Encounter Details Date Type Department Care Team (Late st Contact Info) Description 05/09/2020 Telephone [facility] ([facility]) [address] [place] [id number] Laith Olguin, RT Social History Tobacco Use Types Packs/Day Years Used Date Smoking Tobacco: Former Cigarettes Q uit: 04/08/2015 Smokeless Tobacco: Never Alcohol Use Standard Drinks/Week Comments Yes 0 (1 standard drink = 0.6 oz pur e alcohol) 2 drinks a month Comments No Sex and Gender Information Value Date Recorded Sex Assigned at Not on file Legal Sex Female 11:29 PM [employer] Gender Identity Not on file Sexual Orientation Not on file documented as of this encounter Plan of Treatment Not on file documented as of this encounter Visit Diagnoses Not on filedocumented in this encounter Care Teams Mastic Floor Layer Relationship Specialty Start Date End Date No, Physician PCP - General 01/31/19 11/30/20 Harpal Donis MD PCP - General 12/01/20 12/27/20 No, Physician PCP - General 12/28/20 05/21/21 Unknown, Notinfile PCP - General 05/22/21 10/19/21 No, Physician PCP - General 10/20/21 06/24/23 Ludin Bowling MD PCP - General Family Practice 06/25/23 documented as of this encounter
--- OUTSIDE RECORDS SUMMARY | 2025-06-15 13:54 | XMS_ITS | Clinical Summary ---
Author Organization [facility] Address [address] [place] [address] Care Team Providers Care Promotional Model Name Role Phone Ludin Bowling MD Primary Care Provider [phone] Allergies No known active allergies Medications acetaminophen (TYLENOL) 500 mg tablet Take 2 tablets (1,000 mg total) by mouth every 6 (six) hours 120 tablet 4 Active Additional Information Patient taking differently:1,000 mg oral Every 6 hours,Indications: Pain, Informant: Self, Reported on 03/25/2025 gabapentin (NEURONTIN) 100 mg capsuleIndicati ons:Family history of breast cancer in first degree relative Take 1 capsule (100 mg total) by mouth nightly 30 capsule 3 5 Active Additional Information Patient taking differently:100 mg oral Nightly,Indications: Neuropathic Pain, Informant: Self, Reported on 03/25/[address] (CYMBALTA) 30 mg capsuleIndicati ons:Anxiety with Depression Take 1 capsule (30 mg total) by mouth 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 History of mastectomy, bilateral 12/13/2023 Mass of left breast 05/14/2023 Dense breast tissue on mammogram 04/10/2022 Breast cancer screening, high risk patient 04/10 Encounter for screening mammogram for breast can cer 04/10/2022 Breast fibroadenoma, right 01/18/2021 Fibroadenoma of left breast 09/22/2018 Family history of breast cancer in first degree relative 09/22/2018 Increased risk of breast cancer 02/12/2018 Cervical radiculopathy 10/14/2017 Thoracic myofascial strain 10/14/2017 Acute exacerbation of chronic low back pain 10/03 Cough 09/09/2015 Overview (11/09/2016): Cough Resolved Problems Problem Noted Date Diagnosed Date Resolved Date Breast mass 05/23/2018 04/10/2022 Mammogram abnormal 04/01/2018 Bacterial vaginal infection 04/10/2022 Encounters Date Type Department Care Team Description 04/27/2025 9:00 AM CDT Office Visit [facility] Surgery [address] [place] [address] for Advanced Medicine 6th [place] [address] Anyi Robles MD History of mastectomy, bilateral (Primary Dx) 04/07/2025 10:00 AM CDT Office Visit [facility] Medicine Surgery [address] [place] [address] Advanced Medicine 6th [place] [address] Family history of breast cancer in first degree relative (Primary Dx); History of mastectomy, bilateral; History of bilateral mastectomy 03/25/2025 2:24 PM CDT Anesthesia Event [facility] [address] [place] [phone] Abdifatah Clemons MD Dulle, Alison Renee, NP 03/25/2025 1:45 PM CDT - 03/25/2025 4:35 PM CDT Surgery [facility] Operating Room [facility]) [address] [place] [phone] Anyi Robles MD REVISION OF RECONSTRUCTED BREAST 03/25/2025 10:22 AM CDT - 03/25/2025 7:48 PM CDT Hospital Encounter [facility] Operating Room [place] for [facility] ([facility]) [address] [place] [address] Anyi Robles MD History of bilateral mastectomy [Z90.13] (Primary Dx) Discharge Disposition: Discharge to home or self care 03/24/2025 Telephone [facility] Medicine Surgery [address] [place] [address] 6th [place] [address] [place] [address] Annabelle Mathew from Last 3 Months Immunizations Immunization Administration Dates Next Due Tdap 10/03/2018,02/05/2015 Surgical History Surgery Date Site/Laterality Comments BREAST BIOPSY 02/21/2018 Left GANGLION CYST EXCISION 9 years old BREAST BIOPSY 10/24/2020 Right lumpectomy BREAST BIOPSY 05/22/2023 Left BREAST SURGERY 02/03/2024 - 03/04/2024 Bilateral reconstruction/implant swap MASTECTOMY 11/04/2023 - 12/03/2023 Bilateral Medical History Medical History Date Comments Bacterial vaginal infection Nausea 01/10/2024 PONV (postoperative nausea and vomiting) Family History Medical History Relation Name Comments PONV Father Bone cancer Maternal Grandfather age unk nown Breast cancer Mother PONV Mother Anesthesia problems Neg Hx Endometrial cancer Neg Hx Ovarian cancer Neg Hx Thyroid cancer Neg Hx Relation Name Status Comments Father Maternal Grandfather Mother Social History Tobacco Use Types Packs/Day Years Used Date Smoking Tobacco: Former Cigarettes 0.4 2.3 0 04/08/2015 - 2017 Passive Smoke Exposure: Past Smokeless Tobacco: Never Tobacco Cessation:Counseling Given: Not Answered Alcohol Use Standard Drinks/Week Comments Yes 0 (1 standard drink = 0.6 oz pur e alcohol) 2 drinks a month AUDIT-C Answer Date Recorded Q1: How often do you have a drink containing alc ohol? Monthly or less 03/25/2025 Average Number of Drinks Not on file 025 Frequency of Binge Drinking Not on file 03/06 Personal Safety Answer Date Recorded Have you ever been in or are you currently in a harmful physical or emotional relationship or is someone making you feel afraid or unsafe? Denies 03/25/2025 Comments No Sex and Gender Information Value Date Recorded Sex Assigned at Not on file Legal Sex Female 11:29 PM QUALITY CONSULTANT Gender Identity Not on file Sexual Orientation Not on file Obstetrics History Para Term AB IAB SAB Ectopic Multiple Livin g Live Births 5 2 2 Date Outcome GA Total Labor Labor/2nd/3rd Weight Sex Type Anes PTL Shelia A1 A5 Name Clin Term Term Last Filed Vital Signs Vital Sign Reading Time Taken Comments Blood Pressure 127/77 03/25/2025 7:00 PM CDT Pulse 60 03/25/2025 7:00 PM CDT Temperature 36.3 C (97.3 F) 03/25/2025 5:00 PM CDT Respiratory Rate 13 03/25/2025 7:00 PM CDT Oxygen Saturation 93% 03/25/2025 7:00 PM CDT Inhaled Oxygen Concentration - - Weight 84.8 kg (187 lb) 03/25/2025 11:25 AM CDT Height 167.6 cm (5' 6) 03/25/2025 11:25 AM CDT Body Mass Index 30.18 03/25/2025 11:25 AM CDT Plan of Treatment Health Maintenance Due Date Last Done Comments Cervical Cancer Screening 1991 Depression Screening 1991 Hepatitis C Screening 1991 Varicella Vaccines (1 of 2 - 13+ 2-dose series) 12/14/2004 Hepatitis B Screening 12/14/2009 Regular Well Visit/Exam 18-64 12/14/2009 Pneumococcal vaccine <65 (1 of 2 - PCV) 12/14/2010 HPV Vaccines (1 - 3-dose SCD M series) 12/14/2018 Breast Cancer Screening-Mammogram 10/30/2023 10/29/2022, 10/20/2021, 10/04/2020, Additional history exists Covid-19 Vaccine (3 - 2024-2 6 season) 2025 07/17/2021, 06/21/2021 Influenza Vaccine (#1) 2025 DTaP/Tdap/Td Vaccine (4 - Td or Tdap) 01/17/2032 01/16/2022, 10/03/2018, 02/05/2015 Medical Devices Implanted Type Area Cotton Broker Device Identifier Shelf Expiration Date Model / Serial / Lot Bb Nose [employer] [id number] Magseed 18ga 7cm Marker Breast Biopsy - [id number] Implanted:Qty: 1 on 12/30/2020 at [facility] Right: Breast [employer] 09/04/2024 [id number] / [id number] [employer] Magtrace Liquid Marker 10 Vial Carton [id number] - [id number] Implanted:Qty: 1 on 11/07/2023 by Dora Lopez MD PhD at [facility] Right: Breast [employer] 02/01/2025 [id number] / / [id number] [employer] Magtrace Liquid Marker 10 Vial Carton [id number] - [id number] Implanted:Qty: 1 on 11/07/2023 by Dora Lopez MD PhD at [facility] Left: Breast [employer] 02/01/2025 [id number] / / [id number] Helen Taliaferro Mesh Surgical P4hb Synthetic Nanwalek Galaflex Lite 15cm Soft Tissue Repair [id number] - [id number] Implanted:Qty: 1 on 02/28/2024 at [facility] Left: Breast Helen John 09/04/2025 [id number] / / [id number] Helen John Mesh Surgical P4hb Synthetic Nanwalek Galaflex Lite 17cm Soft Tissue Repair [id number] - [id number] Implanted:Qty: 1 on 02/28/2024 at [facility] Right: Breast Helen John 05/04/2025 [id number] / / [id number] Helen Taliaferro Mesh Surgical P4hb Synthetic Nanwalek Galaflex Lite 17cm Soft Tissue Repair [id number] - [id number] Implanted:Qty: 1 on 02/28/2024 at [facility] Left: Breast Helen Taliaferro 05/04/2025 [id number] / / [id number] Helen John Mesh Surgical P4hb Synthetic Nanwalek Galaflex Lite 15cm Soft Tissue Repair [id number] - [id number] Implanted:Qty: 1 on 02/28/2024 at [facility] Right: Breast Helen Taliaferro 09/04/2025 [id number] / / [id number] [employer]ti [employer] Inc Graft Tissue Dermis Small Cortiva 1mm 7.3x15.1cm [id number] - [id number] - [id number] Implanted:Qty: 1 on 10/05/2024 by Anyi Robles MD at [facility] Right: Breast [employer] 01/02/2029 [id number] / [id number] / [employer] Graft Tissue Dermis Small Cortiva 1mm 7.3x15.1cm [facility] - [id number] - [id number] Implanted:Qty: 1 on 10/05/2024 by Anyi Robles MD at [facility] Left: Breast [employer] 02/01/2029 [id number] / [id number] / [id number] [employer]ol Inc/C R Bard Phasix 8x6in Monofilament Scaffold Full Resorbable Rectangle Mesh [id number] - [id number] Implanted:Qty: 1 on 10/05/2024 by Anyi Robles MD at [facility] Abdomen [employer] Inc/C R Bard [id number] 01/30/2026 [id number] / / [id number] Circle [employer] Clinician Anastomotic Microvascular Gold Stainless Steel [facility] 3.0mm [id number] - [id number] Implanted:Qty: 1 on 10/05/2024 by Anyi Robles MD at [facility] Left: Breast Circle Incian [id number] 10/23/2028 [id number] / / [id number] Teikon [facility]ician Anastomotic Microvascular Gold Stainless Steel [facility] 3.0mm [id number] - [id number] Implanted:Qty: 1 on 10/05/2024 by Anyi Robles MD at [facility] [employer] Kartik [id number] 10/23/2028 [id number] / / [id number] [employer] Implant Breast Moderate Plus Profile Smooth Memorygel Boost 185cc Gel [id number] - [id number] - [id number] Implanted:Qty: 1 on 10/05/2024 by Anyi Robles MD at [facility] Right: Breast [employer] [id number] 02/24/2029 [id number] / [id number] / [employer] Implant Breast Moderate Plus Profile Smooth Memorygel Boost 185cc Gel [id number] - [id number] - [id number] Implanted:Qty: 1 on 10/05/2024 by Anyi Robles MD at [facility] Left: Breast [employer] [id number] 10/18/2028 [id number] / [id number] / Explanted Type Area Cotton Broker Device Identifier Shelf Expiration Date Model / Serial / Lot [employer] Guest Service Agent Breast Ultra High Profile Round Smooth Artoura Plus 535cc Silicone [id number] - [id number] Implanted:Qty : 1 on 11/07/2023 by Dora Lopez MD PhD at [facility] Explanted:Qty : 1 on 02/28/2024 by Anyi Robles MD at [facility] Left: Breast [employer] [id number] 10/17/[address] / / [id number] Description:Disposed per clarice icy [employer] Guest Service Agent Breast Ultra High Profile Round Smooth Artoura Plus 535cc Silicone [id number] - [id number] Implanted:Qty : 1 on 11/07/2023 by Dora Lopez MD PhD at [facility] Explanted:Qty : 1 on 02/28/2024 by Anyi Robles MD at [facility] Right: Breast [employer] [id number] 10/17/2027 [id number] / / [id number] Description:Dispose of per p olricardoy [employer] Implant Mammary Smooth Mod High Profile Boost 500cc [id number] - [id number] Implanted:Qty : 1 on 02/28/2024 at [facility] Explanted:Qty : 1 on 10/05/2024 by Anyi Robles MD at [facility] Left: Breast [employer] 05/25/2028 [id number] / [id number] [employer] Implant Mammary Smooth Mod High Profile Boost 500cc [id number] - [id number] Implanted:Qty : 1 on 02/28/2024 at [facility] Explanted:Qty : 1 on 10/05/2024 by Anyi Robles MD at [facility] Right: Breast [employer] 06/19/2028 [id number] / [id number] Procedures Procedure Name Priority Date/Time Associated Diagnosis Comments AL AN PROCEDURE PLACEHOLDER Routine 03/25/2025 2:57 PM CDT AL AN ELECTIVE ENDOTRACHEAL AIRWAY Routine 03/25/2025 2:57 PM CDT REVISION SCAR - ABDOMINAL 03/25/2025 2:28 PM CDT Family history of breast cancer in first degree relative History of bilateral mastectomy Special Needs MICROAIRE FAT TRANSFER SYSTEM, 15MG LIDOCAINE 1MG EPI IN 1000ML FAT GRAFTING - BREAST 03/25/2025 2:28 PM CDT Family history of breast cancer in first degree relative History of bilateral mastectomy Special Needs MICROAIRE FAT TRANSFER SYSTEM, 15MG LIDOCAINE 1MG EPI IN 1000ML REVISION BREAST 03/25/2025 2:28 PM CDT Family history of breast cancer in first degree relative History of bilateral mastectomy Special Needs MICROAIRE FAT TRANSFER SYSTEM, 15MG LIDOCAINE 1MG EPI IN 1000ML POCT HCG, URINE Routine 03/25/2025 11:12 AM CDT SCREENING MAMMOGRAM BILATERAL W ADAM Schedule Routine, Read Routine (OP Routine) 10/29/2022 10:06 AM CDT Breast cancer screening, high risk patient Breast cancer screening by mammogram from Last 3 Months or Most Recently Relevant to Health Maintenance Results * AL AN ELECTIVE ENDOTRACHEAL AIRWAY, AL AN PROCEDURE PLACEHOLDER (03/25/2025 2:57 PM CDT) Narrative Kavita Orozco CRNA - 03/25/2025 2:57 PM CDT Kavita Orozco CRNA 03/25/2025 2:59 PM Airway Patient location: OR Urgency: elective Date/time: 03/25/2025 2:38 PM Indications for airway management: anesthesia Difficult airway: no Staff: Supervising provider: Abdifatah Clemons MD Placed by: [employer] SEWER: Kavita Orozco CRNA Emergent airway documentation: Risks and benefits discussed: yes Consent obtained: yes Consent given by: patient Airway prep: Preoxygenated: yes MILS maintained throughout: yes Mask difficulty assessment: 0 - not attempted Spontaneous ventilation during airway: absent Sedation level during airway: GA Final airway details: Final airway type: endotracheal airway Tube type: ETT ETT size: 7.0 mm Cuffed: yes Technique used for successful ETT placement: video laryngoscopy Devices/Methods used in placement: intubating stylet Insertion site: oral Blade type: Jeremiah Video blade type: Mari Blade size: 3 Cormack-Lehane (video): grade I - full view of glottis Cuff inflated with: air ETT to lips: 21 cm Placement verified by: auscultation and CO2 detection Airway secured with: silk tape Number of attempts: 1 Abdifatah Clemons MD ANESTHESIA ORDERABLES Final Result * POCT hCG, urine (03/25/2025 11:12 AM CDT) HCG, ur, POC Negative Negative Lot Number [id number] Backgroud Clear Acceptable QC Control Line Acceptable Urine 03/25/2025 11:1 2 AM CDT us Abdifatah Clemons MD POINT OF CARE TEST ORDERABL ES Final Result * Screening Mammogram Bilateral W Adam (10/29/2022 10:06 AM CDT) Anatomical Region Laterality Modality Breast Bilateral Mammography 10/29/2022 12:2 9 PM CDT Impressions 10/29/2022 12:29 PM CDT No evidence of malignancy in either breast. FINAL ASSESSMENT: BI-RADS Category 1: Negative. RECOMMENDATION: Recommend return for annual screening mammogram in 12 months. Electronically signed by: Pat Correa M.D. Narrative 10/29/2022 12:29 PM CDT EXAMINATION: BILATERAL SCREENING MAMMOGRAM COMPARISON: Multiple prior studies, most recently [facility] 10/20/2021 and dating back to 12/26/2015. TECHNIQUE: Full-field 2D and digital breast tomosynthesis (DBT) images were obtained. CAD was utilized. BREAST PARENCHYMAL COMPOSITION: The breasts are extremely dense, which lowers the sensitivity of mammography. FINDINGS: There is no suspicious mass, calcification, or distortion in either breast. There has been no significant interval change from the prior study. Jesenia Redmond MD IMG MAMMO PROCEDURES Final Result from Last 3 Months or Most Recently Relevant to Health Maintenance Insurance [facility] Advance Directives For more information, please contact: [phone] * Full Code (Latest Code Status on File) Date Activated Date Inactivated Comments 10/05/2024 5:02 PM 10/08/2024 1:41 PM * Full Code Date Activated Date Inactivated Comments 11/07/2023 5:41 PM 11/08/2023 4:37 PM Care Teams Promotional Model Relationship Specialty Start Date End Date Ludin Bowling MD PCP - General Family Practice 06/25/23
--- OUTSIDE RECORDS SUMMARY | 2025-06-15 13:54 | XMS_ITS | Clinical Summary ---
Author Organization [facility] [employer] [facility] Address [address] [place] [address] Care Team Providers Care Casino Cashier Name Role Phone Unavailable Primary Care Provider Unavailabl e Allergies No known active allergies Medications fluconazole (DIFLUCAN) 150 mg tablet One tablet one time 1 Tablet 07/07/2020 Active Active Problems Problem Noted Date Diagnosed Date Family history of breast cancer in first degree relative 09/22/2018 Estimated Date of Delivery Comme nts Yes 01/22/2022 Immunizations Immunization Administration Dates Next Due (ADACEL/BOOSTRIX)(10 YR UP) TDAP VACCINE, 0.5ML, IM 10/03/2018 Family History Medical History Relation Name Comments No Known Problems Brother Hypertension Father Cancer Maternal Grandfather No Known Problems Maternal Grandmother Breast Cancer Mother No Known Problems Paternal Grandfather Emphysema Paternal Grandmother No Known Problems Son Relation Name Status Comments Brother Alive Father Alive Maternal Grandfather Maternal Grandmother Alive Mother Paternal Grandfather Alive Paternal Grandmother Son Alive Social History Tobacco Use Types Packs/Day Years Used Date Smoking Tobacco: Former Smokeless Tobacco: Never Alcohol Use Standard Drinks/Week Comments Yes 0 (1 standard drink = 0.6 oz pur e alcohol) Estimated Date of Delivery Comme nts Yes 01/22/2022 Sex and Gender Information Value Date Recorded Sex Assigned at Not on file Legal Sex Female 8:54 AM MEDICAL STAFF MANAGER Gender Identity Not on file Sexual Orientation Not on file Last Filed Vital Signs Vital Sign Reading Time Taken Comments Blood Pressure 112/66 11/13/2021 8:09 AM CDT Pulse 96 07/07/2020 1:25 PM MEDICAL STAFF MANAGER Temperature 36.8 C (98.3 F) 07/07/2020 1:25 PM MEDICAL STAFF MANAGER Respiratory Rate 18 07/07/2020 1:25 PM MEDICAL STAFF MANAGER Oxygen Saturation 98% 07/07/2020 1:25 PM MEDICAL STAFF MANAGER Inhaled Oxygen Concentration - - Weight 94.3 kg (208 lb) 11/13/2021 8:09 AM CDT Height 167.6 cm (5' 6) 11/13/2021 8:09 AM CDT Body Mass Index 33.57 11/13/2021 8:09 AM CDT Plan of Treatment Health Maintenance Due Date Last Done Comments HEPATITIS B VACCINES (1 of 3 - 19+ 3-dose series) 12/14/2010 HPV/Cotest (21-29) 12/14/2012 HPV VACCINES (1 - 3-dose SCDM series) 12/14/2018 CERVICAL CANCER SCREENING 12/14/2021 HPV/Cotest (30-65) 12/14/2021 PAP SMEAR 12/14/2021 INFLUENZA VACCINE (#1) 2025 DTAP/TDAP/TD VACCINES (3 - Td or Tdap) 10/03/2028, 02/05/2015 RSV VACCINE (60+ or ) (1 - 1-dose 75+ series) 12/14/2066 Insurance [employer] OPEN ACCESS
[2025-06-15 14:06] LABS: Hematocrit 36.4 % (37.0-47.0); Hemoglobin 11.7 g/dL (12.0-15.0); Immature Granulocyte Percent A 0.2 % (0-0.5); Lymphocytes Absolute Auto 1.99 K/mm3 (0.9-3.2); Mean Corpuscular HGB Conc 32.1 g/dl (32-36); Mean Corpuscular Hemoglobin 28.7 pg (26-34); Mean Corpuscular Volume 89.2 fl (80-100); Nucleated Red Blood Cells Absolute Auto 0.000 K/mm3 (0.0-0.012); Nucleated Red Blood Cells Perc 0.0 % (0.0-0.2); Platelet Count Result 247 k/mm3 (150-375); Red Blood Count 4.08 M/mm3 (4.2-5.4); White Blood Count 6.1 K/mm3 (4.5-10.0)
[2025-06-15 14:29] LABS: Alanine Aminotransferase 11 U/L (6-35); Albumin Level 4.5 g/dL (3.5-5.1); Alkaline Phosphatase 65 U/L (38-126); Anion Gap 6 mmol/L (4-12); Aspartate Amino Transferase 24 U/L (14-36); Bilirubin,Total 0.5 mg/dL (0.2-1.3); Blood Urea Nitrogen 6 mg/dL (7-17); Calcium 8.7 mg/dL (8.4-10.2); Carbon Dioxide 25 mmol/L (22-30); Chloride 104 mmol/L (98-107); Cholesterol 156 mg/dL (0-200); Estimated Glomerular Filt Rate > 60; Glucose 94 mg/dL (65-110); HDL Direct 62 mg/dL; Potassium 3.9 mmol/L (3.4-5.0); Sodium 135 mmol/L (137-145); Total Protein 7.3 g/dL (6.3-8.2); Triglycerides 87 mg/dL (<150)
[2025-06-15 15:05] LABS: Thyroid Stimulating Hormone 0.921 uIU/mL (0.465-4.680)
[2025-06-15 16:21] LABS: Iron 35 ug/dL (37-170)
[2025-06-15 16:30] LABS: Percent Iron Saturation 8 % (20-50)
[2025-06-15 17:02] LABS: Ferritin 4.98 ng/mL (6.24-137)
== END 2025-06-15 13:47 | disposition home or self-care (01) ==
LOC: ANHLAB 13:47
PROVIDERS: PCP Family Medicine; Visit Provider Family Medicine
DX: F41.9 Anxiety disorder, unspecified (principal); E87.6 Hypokalemia; D64.9 Anemia, unspecified; Z00.00 Encounter for general adult medical examination without abnormal findings; R53.83 Other fatigue
CPT/HCPCS: 36415; 80053; 80061; 82306; 82728; 83540; 83550; 84443; 85025

== ENCOUNTER 2025-07-28 00:28 | Day surgery (SDC) | payer OTHER, SELFPAY ==
[2025-07-22 14:53] VITALS: BMI 29.7
--- NOTE | 2025-07-22 15:00 | PC.NURSE ---
[facility] has started construction of its new state of the art ER which will open Spring 2026. With this, we anticipate parking may be a challenge for some our surgical patients and families. Parking spaces are limited but are available for all Surgical, obstetrics, and ER patients sharing this lot. If you arrive and find you are having a hard time finding a parking space, please note that we understand the challenges, please drive around the hospital and park near Hospital Entrance 1. When you enter this entrance, you can ask a volunteer to direct or take you back to the surgical waiting area to check in. We appreciate everyone?s understanding of these expected challenges while we build for your future. Report to the Outpatient Waiting Room, entrance under the green pavilion located off [address], at time _0700 on date __07/28/2025 . Planned Procedure Time: _0900 .? Time changes happen often and if your time is changed the preop area will call you the afternoon before. - You and your visitor will be asked to self-screen and do not enter if you have any COVID symptoms. Please call surgeon if you need to reschedule. - A mask is optional within the hospital at this time. Patients may have clear liquids (water, carbonated beverages, clear teas, apple juice) until 3 hours prior to surgery with a maximum of 20 ounces. - No food from midnight until time of surgery and no smoking, or chewing tobacco (or any form of nicotine). No chewing gum, candy or mints. - Infants may have breast milk until 4 hours before surgery, formula 6 hours prior to surgery. - Children will be allowed to drink immediately following surgery.? If applicable, please bring a bottle or sippy cup to assist with drinking. Juice, water, soda, and popsicles are readily available.? For infants on formula, please bring formula the day of surgery.? Pacifiers are allowed. Take only the following medications with a SIP of water on the morning of surgery: _Duloxetine, gabapentin DO NOT STOP ANY OF YOUR OTHER PRESCRIPTION MEDICATIONS PRIOR TO SURGERY EXCEPT THE FOLLOWING Hold all vitamins and supplements for 3 days per anesthesiologist. Medications to discontinue per physician ___N/A Date to take last dose____N/A Please no make-up, nail cymro, hairspray, perfume, deodorant, or body powder the day of surgery.? No jewelry (including any body piercings) or valuables the day of surgery, leave them at home.? Please take a shower or bath the night before, or the morning of, surgery with an antibacterial soap.? Wear comfortable, loose fitting clothing.? Children are encouraged to wear pajamas. - Jewelry must be removed prior to entering the operating room.? Rings and piercings that are not removed may be cut off. - The hospital will not accept responsibility for valuables.? - Please leave all valuables, including medications, at home the day of surgery. If you are going home after surgery, a licensed lease purchase driver must drive you home.? - NO public transportation without another adult if you receive anesthesia. - We recommend that an adult stay with you for 24 hours following discharge. - We also recommend that you do not drive, make important decision, drink alcoholic beverages, or take any drugs that were not prescribed by your health care provider for at least 24 hours after your discharge time. For Pediatric surgeries, we recommend two adults accompany the child home. Follow any additional instructions given to you from your surgeon. Telephone instructions given to Ajit and asked if any additional questions and then verbalized understanding. Patient advised to call surgeon office or pre surgery nurse liaison [phone] if any additional questions.
[2025-07-28] VITALS (10 sets, daily range): BP systolic 106–132; BP diastolic 56–66; PULSE 58–87; RESP 12–16; TEMP 36.5–36.7; O2SAT 92–100; BMI 30.4
--- OUTSIDE RECORDS SUMMARY | 2025-07-28 00:31 | XMS_ITS | Data Portability ---
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 Having what sounds like a hormone surge. BHCG (-) in office today Discussed amenorrhea on OCPs SOn is 6 will keep us posted. Not available 02/28/2021 15:49:54 07/12/2021 07/12/2021 2nd baby, normal NOB exam Not available 07/12/2021 11:36:27 08/10/2021 08/10/2021 16 weeks, second baby, doing well Not available 08/10/2021 16:09:41 08/31/2021 08/31/2021 19 weeks, boy #2 ( named Neil) no issues Not available 08/31/2021 16:37:20 Plan of Treatment Reminders Order Date Submit Date Provider Last Modified By Organization Details Last Modified Time Details Appointments None recorded. Lab urinalysis, dipstick 2021 022 In-Office Order, Internal Use Only DO Not Attach Compendium DO Not Attach Compendium, Do Not Delete/merge, [id number] 16:49:56 urinalysis, dipstick 2021 022 In-Office Order, Internal Use Only DO Not Attach Compendium DO Not Attach Compendium, Do Not Delete/merge, [id number] 2 16:42:19 CT + NG + TV, DNA, urine/swab 2021 022 [facility], [address] [facility], [address], [place], [address], 2 11:07:48 obstetric screen, serum or blood [address] [facility], [address] [place] [address], [address], [place], [address], 1 07:12:13 urinalysis complete, reflex culture [address] [facility], [address] [place] [address], [address], [place], [address], 1 07:12:15 drug screen, urine [address] [facility], [address] [place] [address], [address], [place], [address], 07:12:14 HIV 1+2 AB + HIV 1 p24 Ag, qualitative immunoassay , serum 2020 [facility], [address], [address], [place], [address], 1 07:12:16 hsv (1+2) igg Ab, serum 2020 021 [facility], [address], [address], [place], [address], 1 07:12:15 cytology report, thin prep, smear or scraping, cervical or vaginal [address] [facility], [address] [facility], [facility] [address], [place], [address], 16:11:51 test, urine 2020 In-Office Order, Internal Use Only DO Not Attach Compendium DO Not Attach Compendium, Do Not Delete/merge, [id number] 15:55:31 Referral None recorded. Procedures None recorded. Surgeries None recorded. Imaging US, obstetric, maternal evaluation + anatomy 2021 [facility], [address] [facility] [address] [facility], [address] [facility], [place], [address], 10:48:47 Medication Orders sertraline 50 mg tablet 2020 [id number], [address], [place], [id number], 15:53:02 Patient TargetsNo targets recorded. Patient Instructions Encounter Date Encounter Id Patient Instructions Last Modified By Organization Details Last Modified Time 10/31/2020 [id number] premenstrual syndrome (PMS): care instructions Not available 10/31/2020 15:52:56 02/28/2021 [id number] secondary amenorrhea: care instructions Not available 02/28/2021 15:55:31 Reason for Referral None Reported. Results Created Date Observation Date Name Description Value Unit Range Abnormal Flag Note LastModifiedBy Organization Detail LastModifiedTime 02/29/2003/02/2021 IGP, RFX APTIM A HPV ASCU diagnosis: Commen t NEGAT CHET FOR INTRA EPITH ELIAL JENNY Suazo OR RAMON BRAVO . Not Available [facility] ([facility]) [address] [facility], [place], [address], 03/02/2021 16:11:51 02/29/20 21 03/02/2021 IGP, RFX APTIM A HPV ASCU specimen adequacy: Commen t Satis facto ry for evalu ation . No endoc ervic al compo nent is ident ified . Not Available [facility] ([facility]) [address] [place], [address], 03/02/2021 16:11:51 02/29/20 21 03/02/2021 IGP, RFX APTIM A HPV ASCU clinician provided ICD10: Flex montgomery Z01.4 19 Not Available [facility] ([facility]) [address] [place], [address], 03/02/2021 16:11:51 02/29/20 21 03/02/2021 IGP, RFX APTIM A HPV ASCU performed by: Flex borges, Cytovalentina montgomery Not Available [facility] ([facility]) [address] [place], [address], 03/02/2021 16:11:51 02/29/20 21 03/02/2021 IGP, RFX APTIM A HPV ASCU . . Not Available [facility] ([facility]) [address] [place], [address], 03/02/2021 16:11:51 02/29/2003/02/2021 IGP, RFX APTIM A HPV ASCU note: Flex montgomery The Pap smear is a scree harrison test desyuli manuel to aid in the detec tion of gregorio ligna nt and malig nant condi tions of the uteri ne cervi x. It is not a diagn ostic proce dure and shoul d not be used as the sole means of detec ting cervi nathaly cance r. Both false -posi tive and false -nega tive repor ts do occur . Not Available [facility] ([facility]) [address] [place], [address], 03/02/2021 16:11:51 02/29/20 21 03/02/2021 IGP, RFX APTIM A HPV ASCU test methodology: Commen t This liqui d based ThinP rep(R ) pap test was sandy manuel with the use of an image guide domenico finley Not Available [facility] ([facility]) [address] [place], [address], 03/02/2021 16:11:51 02/29/20 21 03/02/2021 IGP, RFX APTIM A HPV ASCU . Commen t The HPV DNA refle x crite dileep were not met with this speci men resul t there fore, no HPV testi ng was perfo rmed. Not Available [facility] ([facility]) [address] [facility], [place], [address], 03/02/2021 16:11:51 02/29/20 21 02/28/2021 pregn chente test, urine HCG negati ve Not Available In-Office Order Internal Use Only DO Not Attach Compendium DO Not Attach Compendium, Do Not Delete/merge, [id number] 02/28/2021 09:49:14 07/12/20 21 07/13/2021 PRENA TRISTA PROFI LE I HBsAg screen Negati ve negati ve Not Available [facility] ([facility]) [address] [place], [address], 07/26/2021 07:12:13 07/12/20 21 07/13/2021 PRENDarin TRISTA PROFI LE I RPR Non Reacti ve non reacti ve Not Available [facility] ([facility]) [address] [place], [address], 07/26/2021 07:12:13 07/12/20 21 07/13/2021 PRENA TRISTA PROFI LE I rubella antibodies, IgG 2.09 index immune >0.99 Non-i mmune <0.90 Equiv ocal 0.90 - 0.99 Immun e >0.99 Not Available [facility] ([facility]) [address] [place], [address], 07/26/2021 07:12:13 07/12/20 21 07/13/2021 PRENA TRISTA PROFI LE I ABO grouping O Not Available [facility] ([facility]) [address] [facility], [place], [address], 07/26/2021 07:12:13 07/12/20 21 07/13/2021 PRENA TRISTA PROFI LE I Rh factor Positi ve Pleas e note: Prior recor ds for this patie nt's ABO / Rh type are not avail able for addit ional verif icati on. Not Available [facility] ([facility]) [address] [facility], [place], [address], 07/26/2021 07:12:13 07/12/20 21 07/13/2021 PRENA TRISTA PROFI LE I antibody screen Negati ve negati ve Not Available [facility] ([facility]) [address] [facility], [place], [address], 07/26/2021 07:12:13 07/12/20 21 07/13/2021 PRENA TRISTA PROFI LE I WBC 9.5 x10e3 /uL 3.4-10 .8 Not Available [facility] ([facility]) [address] [facility], [place], [address], 07/26/2021 07:12:13 07/12/20 21 07/13/2021 PRENA TRISTA PROFI LE I RBC 4.21 x10e6 /uL 3.77-5 .28 Not Available [facility] ([facility]) [address] [facility], [place], [address], 07/26/2021 07:12:13 07/12/2007/13/2021 PRENA TRISTA PROFI LE I hemoglobin 13.4 g/dL 11.1-1 5.9 Not Available [facility] ([facility]) [address] [facility], [place], [address], 07/26/2021 07:12:13 07/12/20 07/13/2021 PRENA TRISTA PROFI LE I hematocrit 40.8 % 34.0-4 6.6 Not Available [facility] ([facility]) [address] [place], [address], 07/26/2021 07:12:13 07/12/20 21 07/13/2021 PRENA TRISTA PROFI LE I MCV 97 fL 79-97 Not Available [facility] ([facility]) [address] [place], [address], 07/26/2021 07:12:13 07/12/2007/13/2021 PRENA TRISTA PROFI LE I MCH 31.8 pg 26.6-3 3.0 Not Available [facility] ([facility]) [address] [facility], [place], [address], 07/26/2021 07:12:13 07/12/2007/13/2021 PRENA TRISTA PROFI LE I MCHC 32.8 g/dL 31.5-3 5.7 Not Available [facility] ([facility]) [address] [place], [address], 07/26/2021 07:12:13 07/12/20 21 07/13/2021 PRENA TRISTA PROFI LE I RDW 12.1 % 11.7-1 5.4 Not Available [facility] ([facility]) [address] [place], [address], 07/26/2021 07:12:13 07/12/2007/13/2021 PRENA TRISTA PROFI LE I platelets 213 x10e3 /uL 150-45 0 Not Available [facility] ([facility]) [address] [place], [address], 07/26/2021 07:12:13 07/12/20 21 07/13/2021 PRENA TRISTA PROFI LE I neutrophils 74 % not estab. Not Available [facility] ([facility]) [address] [facility] [place], [address], 07/26/2021 07:12:13 07/12/20 21 07/13/2021 PRENA TRISTA PROFI LE I lymphs 21 % not estab. Not Available [facility] ([facility]) [address] [facility], [place], [address], 07/26/2021 07:12:13 07/12/20 21 07/13/2021 PRENA TRISTA PROFI LE I monocytes 4 % not estab. Not Available [facility] ([facility]) [address] [facility], [place], [address], 07/26/2021 07:12:13 07/12/20 21 07/13/2021 PRENA TRISTA PROFI LE I eos 1 % not estab. Not Available [facility] ([facility]) [address] [facility], [place], [address], 07/26/2021 07:12:13 07/12/20 21 07/13/2021 PRENA TRISTA PROFI LE I basos 0 % not estab. Not Available [facility] ([facility]) [address] [facility], [place], [address], 07/26/2021 07:12:13 07/12/20 21 07/13/2021 PRENA TRISTA PROFI LE I immature cells MATERIALS MANAGEMENT MANAGER Not Available [facility] ([facility]) [address] [facility], [place], [address], 07/26/2021 07:12:13 07/12/20 21 07/13/2021 PRENA TRISTA PROFI LE I neutrophils (absolute) 7.0 x10e3 /uL 1.4-7. 0 Not Available [facility] ([facility]) [address] [facility], [place], [address], 07/26/2021 07:12:13 07/12/20 21 07/13/2021 PRENA TRISTA PROFI LE I lymphs (absolute) 2.0 x10e3 /uL 0.7-3. 1 Not Available [facility] ([facility]) [address] [facility], [place], [address], 07/26/2021 07:12:13 07/12/20 21 07/13/2021 PRENA TRISTA PROFI LE I monocytes(ab solute) 0.4 x10e3 /uL 0.1-0. 9 Not Available [facility] ([facility]) [address] [facility], [place], [address], 07/26/2021 07:12:13 07/12/2007/13/2021 PRENA TRISTA PROFI LE I eos (absolute) 0.1 x10e3 /uL 0.0-0. 4 Not Available [facility] ([facility]) [address] [facility], [place], [address], 07/26/2021 07:12:13 07/12/2007/13/2021 PRENA TRISTA PROFI LE I baso (absolute) 0.0 x10e3 /uL 0.0-0. 2 Not Available [facility] ([facility]) [address] [facility], [place], [address], 07/26/2021 07:12:13 07/12/2007/13/2021 PRENA TRISTA PROFI LE I immature granulocytes 0 % not estab. Not Available [facility] ([facility]) [address] [facility], [place], [address], 07/26/2021 07:12:13 07/12/2007/13/2021 PRENA TRISTA PROFI LE I immature grans (abs) 0.0 x10e3 /uL 0.0-0. 1 Not Available [facility] ([facility]) [address] [facility], [place], [address], 07/26/2021 07:12:13 07/12/2007/13/2021 PRENA TRISTA PROFI LE I NRBC MATERIALS MANAGEMENT MANAGER Not Available [facility] ([facility]) [address] [facility], [place], [address], 07/26/2021 07:12:13 07/12/2007/13/2021 DELMA ALVES hematology comments: MATERIALS MANAGEMENT MANAGER Not Available [facility] ([facility]) [address] [facility], [place], [address], 07/26/2021 07:12:13 07/12/2007/15/2021 [id number] 9 10 DRUG- BUND amphetamines , urine Negati ve NG/mL cutoff =1000 Amphe tamin e test inclu lorena Amphe tamin e and Metha mphet amine . Not Available [facility] ([facility]) [address] [facility], [place], [address], 07/26/2021 07:12:14 07/12/2007/15/2021 [id number] 9 10 DRUG- BUND barbiturates Negati ve NG/mL cutoff =200 Not Available [facility] ([facility]) [address] [facility], [place], [address], 07/26/2021 07:12:14 07/12/2007/15/2021 [id number] 9 10 DRUG- BUND benzodiazepi eagle Negati ve NG/mL cutoff =200 Not Available [facility] ([facility]) [address] [place], [address], 07/26/2021 07:12:14 07/12/20 21 07/15/2021 [id number] 9 10 DRUG- BUND cannabinoid See Final Result s NG/mL cutoff =50 Not Available [facility] ([facility]) [address] [place], [address], 07/26/2021 07:12:14 07/12/20 21 07/15/2021 [id number] 9 10 DRUG- BUND cocaine (metab.) Negati ve NG/mL cutoff =300 Not Available [facility] ([facility]) [address] [place], [address], 07/26/2021 07:12:14 07/12/2007/15/2021 [id number] 9 10 DRUG- BUND methaqualone Negati ve NG/mL cutoff =300 Not Available [facility] ([facility]) [address] [place], [address], 07/26/2021 07:12:14 07/12/2007/15/2021 [id number] 9 10 DRUG- BUND opiates Negati ve NG/mL cutoff =2000 Opiat e test inclu lorena Codei ne and Morph ine only. Not Available [facility] ([facility]) [address] [place], [address], 07/26/2021 07:12:14 07/12/2007/15/2021 [id number] 9 10 DRUG- BUND phencyclidin e Negati ve NG/mL cutoff =25 Not Available [facility] ([facility]) [address] [place], [address], 07/26/2021 07:12:14 07/12/2007/15/2021 [id number] 9 10 DRUG- BUND methadone screen, urine Negati ve NG/mL cutoff =300 Not Available [facility] ([facility]) [address] [place], [address], 07/26/2021 07:12:14 07/12/2007/15/2021 [id number] 9 10 DRUG- BUND propoxyphene , urine Negati ve NG/mL cutoff =300 Not Available [facility] ([facility]) [address] [place], [address], 07/26/2021 07:12:14 07/12/20 21 07/26/2021 [id number] 9 10 DRUG- BUND cannabinoid Positi ve cutoff =50 abnormal Not Available [facility] ([facility]) [address] [place], [address], 07/26/2021 07:12:14 12/08/20 21 07/26/2021 [id number] 9 10 DRUG- BUND carboxy THC conf, MS, ur 165 NG/mL cutoff =15 Not Available [facility] ([facility]) [address] [place], [address], 07/26/2021 07:12:14 07/12/20 21 07/13/2021 UA/M W/RFL X CULTU RECHRISTIE NE specific gravity 1.025 1.005- 1.030 Not Available [facility] ([facility]) [address] [place], [address], 07/26/2021 07:12:15 07/12/2007/13/2021 UA/M W/RFL X CULTCHRISTIE DELEON NE pH 5.5 5.0-7. 5 Not Available [facility] ([facility]) [address] [place], [address], 07/26/2021 07:12:15 07/12/2007/13/2021 UA/M W/RFL X CULTCHRISTIE DELEON NE urine-color Yellow yellow Not Available [facility] ([facility]) [address] [place], [address], 07/26/2021 07:12:15 07/12/20 21 07/13/2021 UA/M W/RFL X CHRISTIE MACHUCA NE appearance Clear clear Not Available [facility] ([facility]) [address] [place], [address], 07/26/2021 07:12:15 07/12/20 21 07/13/2021 UA/M W/RFL X CULTCHRISTIE DELEON NE WBC esterase Negati ve negati ve Not Available [facility] ([facility]) [address] [place], [address], 07/26/2021 07:12:15 07/12/20 21 07/13/2021 UA/M W/RFL X CULTU RE, ROUTI NE protein Negati ve negati ve/tra ce Not Available [facility] ([facility]) [address] [place], [address], 07/26/2021 07:12:15 07/12/20 21 07/13/2021 UA/M W/RFL X CULTU RE, ROUTI NE glucose Negati ve negati ve Not Available [facility] ([facility]) [address] [place], [address], 07/26/2021 07:12:15 07/12/2007/13/2021 UA/M W/RFL X CULTU RE, ROUTI NE ketones Negati ve negati ve Not Available [facility] ([facility]) [address] [facility], [place], [address], 07/26/2021 07:12:15 07/12/2007/13/2021 UA/M W/RFL X CULTU RE, ROUTI NE occult blood Negati ve negati ve Not Available [facility] ([facility]) [address] [place], [address], 07/26/2021 07:12:15 07/12/2007/13/2021 UA/M W/RFL X CULTU RE, ROUTI NE bilirubin Negati ve negati ve Not Available [facility] ([facility]) [address] [place], [address], 07/26/2021 07:12:15 07/12/2007/13/2021 UA/M W/RFL X CULTU RE, ROUTI NE urobilinogen ,semi-qn 0.2 mg/dL 0.2-1. 0 Not Available [facility] ([facility]) [address] [place], [address], 07/26/2021 07:12:15 07/12/20 21 07/13/2021 UA/M W/RFL X CULTU RE, ROUTI NE nitrite, urine Negati ve negati ve Not Available [facility] ([facility]) [address] [facility], [place], [address], 07/26/2021 07:12:15 07/12/20 21 07/13/2021 UA/M W/RFL X CULTU RE, ROUTI NE microscopic examination Commen t Micro scopi c follo ws if indic ated. Not Available [facility] ([facility]) [address] [facility], [place], [address], 07/26/2021 07:12:15 07/12/2007/13/2021 UA/M W/RFL X CULTU RE, ROUTI NE microscopic examination See below: Micro scopi c was indic ated and was perfo rmed. Not Available [facility] ([facility]) [address] [facility], [place], [address], 07/26/2021 07:12:15 07/12/20 21 07/13/2021 UA/M W/RFL X CULTU RE, ROUTI NE WBC None seen /hpf 0 - 5 Not Available [facility] ([facility]) [address] [facility], [place], [address], 07/26/2021 07:12:15 07/12/20 21 07/13/2021 UA/M W/RFL X CULTU RE, ROUTI NE RBC 0-2 /hpf 0 - 2 Not Available [facility] ([facility]) [address] [facility], [place], [address], 07/26/2021 07:12:15 07/12/20 21 07/13/2021 UA/M W/RFL X CULTU RE, ROUTI NE epithelial cells (non renal) None seen /hpf 0 - 10 Not Available [facility] ([facility]) [address] [facility], [place], [address], 07/26/2021 07:12:15 07/12/20 21 07/13/2021 UA/M W/RFL X CULTU RE, ROUTMarsha NE epithelial cells (renal) MATERIALS MANAGEMENT MANAGER Not Available [facility] ([facility]) [address] [facility], [place], [address], 07/26/2021 07:12:15 07/12/20 21 07/13/2021 UA/M W/RFL X CULTU RE, ROUTI NE casts None seen /lpf none seen Not Available [facility] ([facility]) [address] [facility], [place], [address], 07/26/2021 07:12:15 07/12/2007/13/2021 UA/M W/RFL X CULTU RE, ROUTMarsha NE cast type MATERIALS MANAGEMENT MANAGER Not Available [facility] ([facility]) [address] [facility], [place], [address], 07/26/2021 07:12:15 07/12/20 21 07/13/2021 UA/M W/RFL X CULTU RE, ROUTI NE crystals Presen t n/a abnormal Not Available [facility] ([facility]) [address] [facility], [place], [address], 07/26/2021 07:12:15 07/12/20 21 07/13/2021 UA/M W/RFL X CULTU RE, ROUTI NE crystal type Calciu m Oxalat e n/a Not Available [facility] ([facility]) [address] [facility], [place], [address], 07/26/2021 07:12:15 07/12/20 21 07/13/2021 UA/M W/RFL X CULTU RE, ROUTMarsha NE mucus threads MATERIALS MANAGEMENT MANAGER Not Available [facility] ([facility]) [address] [facility], [place], [address], 07/26/2021 07:12:15 07/12/20 21 07/13/2021 UA/M W/RFL X CULTU RE, ROUTMarsha NE bacteria None seen none seen/f ew Not Available [facility] ([facility]) [address] [facility], [place], [address], 07/26/2021 07:12:15 07/12/20 21 07/13/2021 UA/M W/RFL X CULTU RE, ROUTI NE yeast MATERIALS MANAGEMENT MANAGER Not Available [facility] ([facility]) [address] [facility], [place], [address], 07/26/2021 07:12:15 07/12/20 21 07/13/2021 UA/M W/RFL X CULTU RE, ROUTI NE trichomonas MATERIALS MANAGEMENT MANAGER Not Available [facility] ([facility]) [address] [facility], [place], [address], 07/26/2021 07:12:15 07/12/20 21 07/13/2021 UA/M W/RFL X CULTU RE, ROUTI NE comment MATERIALS MANAGEMENT MANAGER Not Available [facility] ([facility]) [address] [facility], [place], [address], 07/26/2021 07:12:15 07/12/20 21 07/13/2021 UA/M W/RFL X CULTU RE, ROUTI NE urinalysis reflex Commen t This speci men will not refle x to a Urine Cultu re. Not Available [facility] ([facility]) [address] [facility], [place], [address], 07/26/2021 07:12:15 07/12/20 21 07/13/2021 HSV 1 AND 2-SPE C AB, IGG W/RFX hsv 1 IgG, type spec <0.91 index 0.00-0 .90 Negat chet <0.91 Equiv ocal 0.91 - 1.09 Posit chet >1.09 Note: Negat chet indic ates no antib odies detec bg to HSV-1 . Equiv ocal may sugge st early infec tion. If clini cr appro priat e, retes t at later date. Posit chet indic ates antib odies detec bg to HSV-1 . Not Available [facility] ([facility]) [address] [place], [address], 07/26/2021 07:12:15 07/12/20 21 07/13/2021 HSV 1 AND 2-SPE C AB, IGG W/RFX hsv 2 IgG, type spec <0.91 index 0.00-0 .90 Negat chet <0.91 Equiv ocal 0.91 - 1.09 Posit chet >1.09 Note: Negat chet indic ates no antib odies detec bg to HSV-2 . Equiv ocal may sugge st early infec tion. If clini cr appro priat e, retes t at later date. Posit chet indic ates antib odies detec bg to HSV-2 . Not Available [facility] ([facility]) [address] [facility], [place], [address], 07/26/2021 07:12:15 07/12/2007/13/2021 HIV AG/AB WITH REFLE X HIV screen 4TH generation wrfx Non Reacti ve non reacti ve Not Available [facility] ([facility]) [address] [place], [address], 07/26/2021 07:12:16 08/10/19 22 08/13/2021 CT, NG, TRICH VAG BY LAXMI chlamydia by LAXMI Negati ve negati ve Not Available [facility] ([facility]) [address] [place], [address], 08/13/2021 11:07:48 08/10/19 22 08/13/2021 CT, NG, TRICH VAG BY LAXMI gonococcus by LAXMI Negati ve negati ve Not Available [facility] ([facility]) [address] [place], [address], 08/13/2021 11:07:48 08/10/19 22 08/13/2021 CT, NG, TRICH VAG BY LAXMI trich vag by LAXMI Negati ve negati ve Not Available [facility] ([facility]) [address] [facility], [place], [address], 08/13/2021 11:07:48 08/10/19 22 08/10/2021 urina lysis , dipst ick Leukocytes Negati ve Not Available In-Office Order Internal Use Only DO Not Attach Compendium DO Not Attach Compendium, Do Not Delete/merge, 08/09/2021 09:59:33 08/10/19 22 08/10/2021 urina lysis , dipst ick Nitrite negati ve Not Available In-Office Order Internal Use Only DO Not Attach Compendium DO Not Attach Compendium, Do Not Delete/merge, 08/09/2021 09:59:33 08/10/19 22 08/10/2021 urina lysis , dipst ick Urobilinogen .2 Not Available In-Of fice Order Internal Use Only DO Not Attach Compendium DO Not Attach Compendium, Do Not Delete/merge, 08/09/2021 09:59:33 08/10/19 22 08/10/2021 urina lysis , dipst ick Protein Negati ve Not Available In-Office Order Internal Use Only DO Not Attach Compendium DO Not Attach Compendium, Do Not Delete/merge, 08/09/2021 09:59:33 08/10/19 22 08/10/2021 urina lysis , dipst ick pH 7.0 Not Available In-Office Order Internal Use Only DO Not Attach Compendium DO Not Attach Compendium, Do Not Delete/merge, 08/09/2021 09:59:33 08/10/19 22 08/10/2021 urina lysis , dipst ick Blood Negati ve Not Available In-Office Order Internal Use Only DO Not Attach Compendium DO Not Attach Compendium, Do Not Delete/merge, 08/09/2021 09:59:33 08/10/19 22 08/10/2021 urina lysis , dipst ick Specific [place] 1.025 Not Available In-Off ice Order Internal Use Only DO Not Attach Compendium DO Not Attach Compendium, Do Not Delete/merge, 08/09/2021 09:59:33 08/10/19 22 08/10/2021 urina lysis , dipst ick Ketone Negati ve Not Available In-Office Order Internal Use Only DO Not Attach Compendium DO Not Attach Compendium, Do Not Delete/merge, [id number] 08/09/2021 09:59:33 08/10/19 22 08/10/2021 urina lysis , dipst ick Bilirubin Negati ve Not Available In-Office Order Internal Use Only DO Not Attach Compendium DO Not Attach Compendium, Do Not Delete/merge, [id number] 08/09/2021 09:59:33 08/10/19 22 08/10/2021 urina lysis , dipst ick Glucose Negati ve Not Available In-Office Order Internal Use Only DO Not Attach Compendium DO Not Attach Compendium, Do Not Delete/merge, [id number] 08/09/2021 09:59:33 08/31/19 22 08/31/2021 urina lysis , dipst ick Protein Negati ve Not Available In-Office Order Internal Use Only DO Not Attach Compendium DO Not Attach Compendium, Do Not Delete/merge, [id number] 08/31/2021 09:37:12 08/31/19 22 08/31/2021 urina lysis , dipst ick Glucose Negati ve Not Available In-Office Order Internal Use Only DO Not Attach Compendium DO Not Attach Compendium, Do Not Delete/merge, [id number] 08/31/2021 09:37:12 08/25/19 22 08/24/2021 US, obste tric, mater nal evalu ation + anato my No observ ation record ed. [facility] [address], [place], [address], 09/12/2021 09:21:54 Result Notes None recorded. Problems Name Problem SNOMED Code Status Onset Date Resolution Date Notes Provider Name and Address Organization Details Recorded Time Nausea 330577104 Active Not Available [facility] 06:28:52 Nausea 334864915 Completed Tanna Adamson RN null, [place] [facility] [place] 5 11:38:04 depression 59997524 Active Not Available [facility] 1 06:28:52 depression 34955233 Completed Tanna Adamson RN null, [facility] 5 11:38:04 Irregular periods 18057842 Active Not Available [facility] 1 06:28:52 Menorrhagi a 316587803 Active Not Available [facility] 1 06:28:52 Mammograph y abnormal 306339672 Active Not Available [facility] 06:28:52 Vaginal discharge 184648769 Active Not Available [facility] 06:28:52 Fatigue 46879159 Active 2019 Not Available [facility] 06:28:52 Mixed anxiety and depressive disorder 778568084 Active 2019 Not Available [facility] 06:28:52 Acne 95969202 Active 2019 Not Available [facility] 06:28:52 07490538 Completed 202012/20/2021 Tanna Adamson RN null, [facility] 2 11:54:15 Problem Notes None recorded. Procedures Surgical History Date Name Laterality Status Provider Name and Address Organization Details Recorded Time 1 Date of Last Pap Smear completed Tanna Adamson RN [facility] 03/02/2021 16:13:20 7 Colposcopy completed [facility]elin [facility] Attn: Accounting,[address] [place], [address], [facility] 03/05/2017 15:08:47 7 Colposcopy completed Meenakshi Forman [facility] 03/05/2017 15:06:18 6 IUD Removal completed Mayelin Faith [facility] Attn: Accounting,[address] [place], [address], [facility] 05/14/2016 10:51:24 6 Control Implant Removal completed Mayelin Faith [facility] Attn: Accounting[address] [place], [address], [facility] 11/01/2015 17:24:20 6 IUD Insertion completed Mayelin Faith [facility] Attn: Accounting,[address] [facility], [place], [address], [facility] 11/01/2015 17:24:20 5 Control Implant Insertion completed Mayelin Faith [facility] Attn: Accounting,[address] [facility], [place], [address], [facility] 04/13/2015 15:31:21 Imaging Results None recorded. Procedure Notes None recorded. Medical Equipment None Reported. Allergies No known drug allergies Medications Name Sig Start Date Stop Date Status Note LastModified by Organization Details LastModified Time amoxicillin 500 mg capsule TAKE ONE CAPSULE BY MOUTH EVERY 8 HOURS UNTIL GONE active Not Available Not Available No t Available neomycin-po lymyxin-hyd rocort 3.5 mg/mL-10,00 0 unit/mL-1 % ear solution 12/01 completed Not Available Not Available Not Available azithromyci n 250 mg tablet 12/01 completed Not Available Not Available Not Available ibuprofen 800 mg tablet 12/01 completed Not Available Not Available Not Available tizanidine 4 mg tablet 12/01 completed Not Available Not Available Not Available fluconazole 150 mg tablet TAKE 1 TABLET BY MOUTH ONCE DIRECTED active Not Available Not Available No t Available hydrocodone 5 mg-acetamin ophen 325 mg tablet 12/01 completed Not Available Not Available Not Available fluconazole 200 mg tablet 12/01 completed Not Available Not Available Not Available metronidazo le 0.75 % (37.5 mg/5 gram) vaginal gel USE 2 CLEAN FINGERS TO APPLY METROGEL INTO VAGINA EVERY NIGHT AT BEDTIME FOR 5 NIGHTS active Not Available Not Available No t Available prednisone 5 mg tablet 12/01 completed Not Available Not Available Not Available terconazole 0.8 % vaginal cream INSERT 1 APPLICATO RFUL INTO VAGINA EVERY NIGHT AT BEDTIME FOR 3 DAYS active Not Available Not Available No t Available Formula tablet Take 1 tablet every day by oral route for 30 days. 2014 active Not Available Not Available Not Avai lable metronidazo le 500 mg tablet TAKE 1 TABLET BY MOUTH TWICE DAILY FOR 7 DAYS active Not Available Not Available No t Available omeprazole 40 mg capsule,del ayed release active Not Available Not Available Not Available tramadol 50 mg tablet 12/01 completed Not Available Not Available Not Available amoxicillin 500 mg tablet TAKE 1 TABLET BY MOUTH TWICE DAILY WITH FOOD FOR 10 DAYS 02/14 completed Not Available Not Available Not Available Macrobid 100 mg capsule Take 1 capsule twice a day by oral route for 7 days. 2021 active Not Available Not Available Not Avyulissa reyes Miconazole- 7 2 % vaginal cream active Not Available Not Available Not Available oxycodone-a cetaminophe n 5 mg-325 mg tablet active Not Available Not Available No t Available citalopram 20 mg tablet Take 1 tablet every day by oral route. 02/25 completed Not Available Not Available Not Available methocarbam ol 750 mg tablet 12/01 completed Not Available Not Available Not Available estradiol 1 mg tablet Take 1 tablet every day by oral route for 10 days. active Not Available Not Available No t Available hydrocodone 7.5 mg-acetamin ophen 325 mg tablet TAKE 1 TABLET BY MOUTH EVERY 6 TO 8 HOURS NEEDED 10/31 completed Not Available Not Available Not Available cephalexin 500 mg capsule TK 1 C PO BID FOR 10 DAYS 10/31 completed Not Available Not Available Not Available docusate sodium 100 mg capsule active Not Available Not Available N ot Available ibuprofen 600 mg tablet Take 1 tablet every 8 hours by oral route. 12/01 completed Not Available Not Available Not Available methylpredn isolone 4 mg tablets in a dose pack 12/01 completed Not Available Not Available Not Available sertraline 50 mg tablet TAKE 1 TABLET BY MOUTH EVERY DAY active Not Available Not Available No t Available ParaGard T 380A 380 square mm intrauterin e device Take by intrauter ine route. 05/14 completed Not Available Not Available Not Available doxycycline hyclate 100 mg tablet Take 1 tablet every day by oral route. 10/31 completed Not Available Not Available Not Available metoclopram paddy 10 mg tablet Take 1 tablet 4 times a day by oral route after meals. active Not Available Not Available No t Available amoxicillin 875 mg-potassiu m clavulanate 125 mg tablet 01/30 completed Not Available Not Available Not Available oxycodone 5 mg tablet 12/01 completed Not Available Not Available Not Available cyclobenzap rine 5 mg tablet 12/01 completed Not Available Not Available Not Available Junel FE 1.5/30 (28) 1.5 mg-30 mcg (21)/75 mg (7) tablet Take 1 tablet(s) every day by oral route for 28 days. 10/31 completed Not Available Not Available Not Available TriNessa (28) 0.18 mg(7)/0.215 mg(7)/0.25 mg(7)-35 mcg tablet TAKE ONE TABLET BY MOUTH DAILY 12/01 completed Not Available Not Available Not Available Vol-Plus 27 mg-1 mg tablet active Not Available Not Available Not Available Lo Loestrin Fe 1 mg-10 mcg (24)/10 mcg (2) tablet TAKE 1 TABLET BY MOUTH EVERY DAY 02/14 completed Not Available Not Available Not Available Nexplanon 68 mg subdermal implant Inject 1 implant by subcutane ous route. 2014 active Not Available Not Available Not Avai lable Nexplanon 04/13 completed Not Available Not Available Not Available Vol-Plus 27 mg iron-1 mg tablet active Not Available Not Available No t Available Shira 0.25 mg-0.035 mg tablet TAKE 1 TABLET BY MOUTH EVERY DAY active Not Available Not Available No t Available Aurovela 24 Fe 1 mg-20 mcg (24)/75 mg (4) tablet TAKE 1 TABLET BY MOUTH EVERY DAY active Not Available Not Available No t Available Vitals Date Recorded Body weight Provider Name an d Address Organization Details Last Updated DateTime 08/10/2021 27701.82878 g Shira Bolanos MD Attn: [address] [place], [address], [facility] 08/10/2021 16:09:28 Date Recorded Body height Body mass index (BMI) Systolic And Diastolic Provider Name and Address Organization Details Last Updated DateTime 08/10/2021 167.64 cm 30 kg/m2 132/82 mm[Hg] Lizzie Schumacher Darin [facility] 08/10/2021 15:54:05 Date Recorded Body weight Provider Name an d Address Organization Details Last Updated DateTime 08/31/2021 57267.027050 g Shria Bolanos MD Attn: [address] [place], [address], [facility] 08/31/2021 16:37:03 Date Recorded Body height Body mass index (BMI) Systolic And Diastolic Provider Name and Address Organization Details Last Updated DateTime 08/31/2021 167.64 cm 30.5 kg/m2 128/80 mm[Hg] Lizzie Schumacher [facility] 08/31/2021 16:10:36 Date Recorded Body height Body mass index (BMI) Body weight Systolic And Diastolic Provider Name and Address Organization Details Last Updated DateTime 10/31/2020 167.64 cm 29.1 kg/m2 24574.78 g 126/80 mm[Hg] Lizzie Schumacher [facility] 10/31/2020 15:33:54 Date Recorded Body height Body mass index (BMI) Body weight Systolic And Diastolic Provider Name and Address Organization Details Last Updated DateTime 02/28/2021 167.64 cm 27.9 kg/m2 53738.91 g 144/88 mm[Hg] Lizzie Schumacher [facility] 02/28/2021 15:34:15 Date Recorded Body weight Provider Name an d Address Organization Details Last Updated DateTime 07/12/2021 08531.69575 g Shira Bolanos MD Attn: [address]ing[address] [place], [address], [facility] 07/12/2021 11:23:23 Date Recorded Body height Body mass index (BMI) Systolic And Diastolic Provider Name and Address Organization Details Last Updated DateTime 07/12/2021 167.64 cm 28.1 kg/m2 130/78 mm[Hg] Lizzie Schumacher [facility] 07/12/2021 11:07:59 Social History Question Answer Notes LastModified by Organizat ion Details LastModified Time Tobacco Smoking Status Former Smoker BRADY Barraza, [facility] 12/02/2019 09:03:27 Is Blood Transfusion Acceptable In An Emergency? Yes Information not available 02/26/2020 What Is Your Level Of Caffeine Consumption? Occasional Information not available 02/26/2020 How Much Tobacco Do You Chew? None Information not available 02/26/2020 What Was The Date Of Your Most Recent Tobacco Screening? 02/26/2020 Information not available 02/26/2020 How Many Children Do You Have? 1 [email or web address] Information not available 02/18/2015 Performs Monthly Self-breast Exam? Yes Information no t available 02/26/2020 What Is Your Relationship Status? Single [email or web address] Information not available 07/26/2014 Seat Belts Used Routinely No Information not available 02/26/2020 Are You Sexually Active? Yes [email or web address] Information not available 07/26/2014 Do You Use Sunscreen Routinely? No Information not available 02/26/2020 How Many Years Have You Smoked Tobacco? 7 [email or web address] Information not available 07/26/2014 Sex: Female Functional Status Question Answer Note LastModified by Organizat ion Details LastModified Time What is your level of alcohol consumption? Occasional [email or web address] Information not available 12/02/2019 Do you or have you ever used smokeless tobacco? Never used smokeless tobacco Information not available 02/26/2020 Do you or have you ever used e-cigarettes or vape? Never used electronic cigarettes Information not available 02/26/2020 Mental Status None recorded. Family History Relationship Description Onset Age of this Age Resolved Age Notes LastModified by Organization Details LastModified Time Father History of hypertension [email or web address] Not available 03/2016 16:19:22 Mother Malignant neoplasm of breast 30 [email or web address] Not available 2015 16:19:22 Mother Malignant neoplasm of bone [email or web address] Not available 2016 11:43:47 Maternal Grandfather Malignant neoplasm of bone knealma Not available 2016 11:43:47 Medical History Condition Response Heart Problems N Other N High Blood Pressure N Breast Cancer N Thyroid Problems N Kidney or Bladder Problems N Lung Disease N Depression N Blood Clots N GI Problems N Acne N Breast Problem N Eating Disorder N Anemia N Anesthesia Complications N Headaches/Migraines N Ovarian Cancer N Diabetes N Anxiety Disorder N Muscle, Joint, or Bone Problems N Blood Transfusions N Seizures/Epilepsy N Arthritis N Polyps N Infertility N Acid Reflux (GERD) N Cancer N Stroke N Abuse/Domestic Violence N Asthma N Endometriosis N High Cholesterol N Hepatitis N Liver Disease N Heart Disease N Fibromyalgia N Pre-Eclampsia N Hypertension N Osteoporosis N Kidney Disease N Gynecological History Statement/Question Response Abnormal Pap Yes Flow Light Date of LMP 05/07/2020 On BCP's at Conception? N STIs/STDs Yes HPV Vaccine Y Duration of Flow (days) 7 Age at Menarche 14 Current Control Method Age at First Child 24 Frequency of Cycle (Q days) 29 Sexually Active? Y Menses Monthly Y Date of Last Pap Smear 02/28/2021 Sexual Problems? N LMP Approximate Obstetrics History GPAL:G 5 P 1 0 3 1 Type Value Full Term 1 Induced 1 Spontaneous 2 Living 1 Total 5 Past Encounters Encounter ID Performer Location Encounter Start Date Encounter Closed Date Diagnosis/Indication Diagnosis SNOMED-CT Code Diagnosis ICD10 Code Diagnosis IMO Codes Diagnosis Note [id number] MD Alyssa Lauren ([place] [address]) [address] [place] [address] 07/06/2014 11:34:25 07/06/2014 17:16:42 [id number] Mayelin Faith [facility] Alyssa Cardenas ([facility] [address]) [address] [place] [address] 07/26/2014 15:26:52 07/26/2014 16:34:20 [id number] Mayelin Faith [facility] Alyssa Cardenas ([place] [address]) [address] [place] [address] 08/16/2014 15:05:01 08/17/2014 11:46:14 [id number] Mayelin Faith [facility] Alyssa Cardenas ([facility] 122) [address] [place] [address] 08/30/2014 14:46:19 08/30/2014 16:48:21 [id number] MD Alyssa Morillo ([facility] 122) [address] [place] [address] 09/29/2014 11:29:37 09/29/2014 14:05:59 [id number] MD Alyssa Morillo ([facility] 122) [address] [place] [address] 10/20/2014 11:58:09 10/20/2014 13:05:00 Nausea [id number] MD Alyssa Morillo [facility] ([facility] 122) [address] [facility] [place] [address] 10/27/2014 15:06:21 10/27/2014 15:58:40 [id number] MD Alyssa Vieira [facility] ([facility] 205) [address] [place] [address] 11/19/2014 14:12:23 11/22/2014 14:26:37 [id number] MD Alyssa Vieira [facility] ([facility] 205) [address] [facility] [place] [address] 12/03/2014 11:50:03 12/03/2014 14:28:22 [id number] MD Alyssa Vieira ([facility] 205) [address] [facility] [place] [address] 12/23/2014 14:12:41 12/23/2014 14:57:57 [id number] MD Alyssa Vieira ([facility] 205) [address] [facility] [place] [address] 01/05/2015 11:22:43 01/05/2015 12:36:05 [id number] MD Alyssa Vieira [employer] ([facility] 205) [address] [facility] [place] [address] 01/12/2015 12:07:46 01/12/2015 14:06:49 [id number] MD Alyssa Vieira [facility] ([facility] 205) [address] [facility] [place] [address] 01/19/2015 11:50:38 01/19/2015 15:12:44 [id number] MD Alyssa Vieira ([facility] 205) [address] [facility] [place] [address] 01/25/2015 11:39:44 01/25/2015 12:59:16 [id number] MD Alyssa Vieira [facility]om[facility] ([facility] 205) [address] [facility] [place] [address] 02/01/2015 14:47:58 02/01/2015 16:49:55 [id number] MD Alyssa Vieira ([facility] 205) [address] [facility] [place] [address] 02/18/2015 11:49:27 02/18/2015 12:20:39 depression [id number] MD Alyssa Vieira ([facility] 205) [address] [facility] [place] [address] 03/18/2015 14:12:15 03/18/2015 15:00:15 care [id number] Mayelin Faith [facility] Alyssa Cardenas ([facility] 122) [address] [facility] [place] [address] 04/04/2015 16:36:26 04/04/2015 17:18:09 Contraception care management [id number] Mayelin Faith [facility] Alyssa Cardenas ([facility] 122) [address] [place] [address] 04/13/2015 14:51:17 04/14/2015 08:55:39 Contraception care management [id number] Mayelin Faith [facility] Alyssa Cardenas ([facility] 122) [address] [place] [address] 07/20/2015 10:29:41 07/20/2015 11:59:32 Gynecologic examination 84551413 Z01.419 Screening mammography 24 928266 Z12.31 Subcutaneo us contraceptive implant present 560248849 Z97.8 [id number] Mayelin Faith ELISABETH Cardenas ([facility] 122) [address] [place] [address] 10/24/2015 16:41:16 10/25/2015 16:11:36 Contraception education 319306450 Z30.09 [id number] Mayelin Faith ELISABETH Cardenas ([facility] 122) [address] [facility] [place] [address] 11/01/2015 14:56:04 11/02/2015 09:40:01 Subcutaneous contraceptive implant present 613160643 Z97.8 Insertion of intrauterine contraceptive device 57515068 Z30.430 [id number] Mayelin Faith [facility] Alyssa Cardenas ([facility] 122) [address] [place] [address] 11/29/2015 14:18:55 11/30/2015 11:04:23 IUD check 474071792 Z30.431 [id number] Mayelin Faith [facility] Alyssa Cardenas ([facility] 122) [address] [place] [address] 03/12/2016 16:16:58 03/12/2016 16:50:13 At increased risk of urinary tract infection 188891163 Z91.89 Vaginal discharge 083277 006 N89.8 Venereal d isease screening 178313822 Z11.3 [id number] Mayelin Faith [facility] Alyssa Cardenas ([place] [address]) [address] [place] [address] 05/14/2016 10:29:16 05/15/2016 11:58:28 Removal of intrauterine device 04982595 Z30.432 Oral contr aceptive restarted 138033379 Z76.89 [id number] Mayelin Faith [facility] Alyssa Cardenas ([place] [address]) [address] [place] [address] 08/15/2016 14:49:15 08/16/2016 11:17:50 Vaginal discharge 560738137 N89.8 test negative 392575615 Z32.02 [id number] Mayelin Faith [facility] Alyssa Cardenas ([place] [address]) [address] [place] [address] 01/30/2017 11:30:21 01/30/2017 12:26:58 Gynecologic examination 26035698 Z01.419 Abnormal vaginal odor 62 954136 N89.8 Surveillan ce of oral contraception 479291501 Z30.41 [id number] Mayelin Faith [facility] Alyssa Cardenas ([place] [address]) [address] [place] [address] 03/05/2017 14:28:14 03/05/2017 15:18:39 Low grade squamous intraepithelial lesion on cervical Papanicolaou smear 3731418650 9105 R87.000 [id number] Betsey Louise [facility] Alyssa Cardenas ([place] [address]) [address] [place] [address] 04/04/2017 10:11:05 04/09/2017 15:10:07 Vaginal discharge 298085051 N89.[id number] [facility] ([facility] 122) [address] [facility] [place] [address] 05/03/2017 16:18:57 05/03/2017 16:53:55 Vaginal discharge 041927994 N89.8 Venereal d isease screening 574765701 Z11.3 Abnormal c ervical Papanicolaou smear 716739099 R87.070 [id number] [facility] ([facility] 122) [address] [facility] [place] [address] 06/04/2017 12:01:02 06/06/2017 14:18:25 Venereal disease screening 640235029 Z11.3 Body mass index 25-29 - overweight 161451725 Z68.25 [id number] MD Alyssa Vieira [facility] ([facility] 205) [address] [facility] [place] [address] 07/05/2017 10:17:40 07/05/2017 11:38:07 Body mass index 25-29 - overweight 538265605 Z68.27 Vaginal irritation 77502 6004 N89.8 [id number] MD Alyssa Vieira 14 OB [address] [facility] [place] [address] 05/09/2018 14:40:00 05/12/2018 14:41:05 Vaginal discharge 840152112 N89.8 [id number] Betsey Louise [facility] Alyssa 14 OB [address] [facility] [place] [address] 09/17/2018 16:23:46 09/18/2018 14:44:32 Bacterial vaginosis 393197620 N76.0 [id number] MD Alyssa Vieira 14 OB [address] [facility] [place] [address] 09/30/2018 16:26:10 10/01/2018 08:50:36 Gynecologic examination 50282809 Z01.494 [id number] MD Alyssa Vieira 14 OB [address] [facility] [place] [address] 01/08/2019 16:09:41 01/09/2019 09:45:39 Venereal disease screening [id number] Z11.3 [id number] MD Alyssa Vieira 14 OB [address] [facility] [place] [address] 04/14/2019 11:14:30 04/16/2019 09:04:42 Premenstrual tension syndrome 40237818 N94.3 [id number] MD Alyssa Vieira 14 OB [address] [facility] [place] [address] 06/02/2019 14:28:29 06/03/2019 10:58:42 High risk sexual behavior 999377378 Z72.51 [id number] MD Alyssa Vieira 14 OB 4 [facility] [place] [address] 07/06/2019 15:02:16 07/07/2019 10:11:48 Contraception care management [id number] Z30.9 [id number] [facility] 4 [facility] [place] [address] 08/20/2019 09:42:25 08/21/2019 12:05:30 Venereal disease screening 585961706 Z11.3 1. STD testing done per pt request 2. Educated pt on STD prevention , Condom use 3. Pt verbalized understand ing 4. Will follow up pending lab results, as needed or at next annual [id number] [facility] 4 [facility] [place] [address] 09/23/2019 16:52:33 09/24/2019 11:02:53 Venereal disease screening 959411954 Z11.3 1. STD testing done per pt request 2. Educated pt on STD prevention , Condom use 3. Pt verbalized understand ing 4. Will follow up pending lab results, as needed or at next annual [id number] MD Alyssa Vieira 14 OB [address] [facility] [place] [address] 11/16/2019 14:18:46 11/25/2019 12:16:30 Vaginal discharge [id number] N89.8 [id number] Edmund Morales [facility] [place] 14 IM [address] [facility] [place] [address] 12/02/2019 08:19:02 12/03/2019 09:54:34 Adult health examination 925678560 Z00.00 Fatigue 15474083 R53.83 [id number] Edmund Morales [facility] Alyssa 14 IM [address] [facility] [place] [address] 12/08/2019 08:19:41 12/09/2019 09:55:09 Mixed anxiety and depressive disorder 980830982 F41.8 [id number] MD Alyssa Vieira 14 OB [address] [facility] [place] [address] 02/26/2020 09:52:13 02/29/2020 11:16:43 Contraception care management 069100835 Z30.9 [id number] Edmund Morales [facility] Alyssa 14 IM [address] [facility] [place] [address] 03/15/2020 08:38:38 03/16/2020 09:57:38 Acne 20479500 L70.9 Use benzyl peroxide pads PRN [id number] MD Alyssa Vieira 14 OB [address] [facility] [place] [address] 05/23/2020 11:37:53 05/24/2020 12:35:07 Epidermoid cyst of skin 052926104 L72.3 High risk sexual behavior 420074468 Z72.51 [id number] MD Alyssa Vieira 14 OB [address] [facility] [place] [address] 10/31/2020 15:24:07 11/01/2020 11:56:36 Premenstrual tension syndrome 89127516 N94.3 [id number] MD Alyssa Vieira 14 OB [address] [facility] [place] [address] 02/28/2021 15:20:29 03/01/2021 12:06:36 Amenorrhea 02835449 N91.2 Gynecologi c examination 16807032 Z01.043 [id number] MD Alyssa Vieira 14 OB [address] [facility] [place] [address] 07/12/2021 10:51:37 07/13/2021 06:22:24 Normal 82013145 Z34.90 Vaginal discharge 143140 006 N89.8 [id number] MD Alyssa Vieira 14 OB [address] [facility] [place] [address] 08/10/2021 15:39:15 08/14/2021 07:06:13 Normal 44021810 Z34.90 [id number] MD Alyssa Vieira 14 OB [address] [facility] [place] [address] 08/31/2021 15:55:14 09/01/2021 06:34:27 Normal 42168601 Z34.90 Health Concerns Section Related Observation LastModified by Organization Detai ls LastModified Time None Recorded Concern Status LastModified by Organization Details LastModified Time None Recorded Advance Directives Directive None Recorded Payers Insurance Date Sequence Insurance Name Policy Number Policy Puentes Covered Member ID Puentes Member ID Guarantor Name 08/10/2021 1 [facility] [id number] Libra Santosibly [id number] Libra Santosibly 10/25/2020 1 [facility] BLUE CHOICE (PPO) [id number] Libra Santosibly [id number] Libra Santosibly 02/26/2020 1 *SELF PAY* Sa tessa Fontanez 08/10/2021 SLIDING FEE SCHEDULE - DISCOUNT Libra Santosibly 04/13/2015 1 [place] [facility] [place] [facility] [place] [facility] Libra Santosibly [id number] Libra Santosibly 04/13/2015 1 [facility] (MEDICAID HMO) [id number] Libra Santosibly [id number] Libra Santosibly 02/26/2020 1 [place] [facility] [place] [facility] Libra Santosibly [id number] Libra Santosibly 04/13/2015 [facility] Libra Santosibly [id number] Libra Tomibly 05/09/2018 1 [facility] (MEDICAID HMO) [id number] Libra Santosibly [id number] Libra Tomibly 09/13/2023 1 [facility] - [facility] BENEFIT PLAN MANAGEMENT - [facility] [id number] Libra Fontanez [id number] Libra Fontanez Notes Date Note Type Note Provider Name and Address Organization Details Recorded Time 1 text/html discussed options for PMS : OCPs vs anti=depressants Pt reports she has some kind of genetic condition for breast cancer that might make her unable to take even low dose OCPs. ( she will discuss with her high risk doctor) Her mother at 38 from breast cancer Shira Bolanos MD Attn: Accounting,[address] [place], [address], [facility] 10/31/2020 15:53:09 1 text/html Annual GYNReported by PatientGenitourinary symptomsFor menstrual cycle, patient reportsnormal menses. For urinary symptoms, patient reportsno hematuriaandno incontinence. For vulva, patient reportsno genital lesion. For vagina, patient reportsnormal vaginal discharge.Breast symptomsFor breast, patient reportsno breast pain,no breast lump, andno nipple discharge.ContraceptionFo r current contraception, patient reportsoral contraceptives.Endocrine symptomsFor sexual complaints, patient reportsno sexual complaints,no pain during intercourse, andnormal libido. For menopausal symptoms, patient reportsno menopausal symptomsandnormal vaginal lubrication.Psychological symptomsFor psychological symptoms, patient reportsno depression,no anxiety, andno pmdd.ROS as noted in the HPI Shira Bolanos MD Attn: Accounting[address] [place], [address], [facility] 02/28/2021 15:50:12 OBGyn Episode Ob Episode Information Episode Created Date Number of Fetuses Patient Bloodtype Patient rh Status Prepregnancy Weight lbs Domestic Partner Domestic Partner Phone Father Name Chain Maker Loom Control Status 07/12/20 21 1 O Positive CLOSED Fetus Data First Name Last Name Admitted to NICU Weight (g) Sex Living Outcome Pediatric Complications Fetus ID Race Codes Race Delivery Type [id number] Vitor Calculation Initial Vitor Date Initial Exam Date Initial Exam Provider Initial Ultrasound Date Last Menstrual Period Date Ultra Sound Weeks Gestation 01/22/2022 07/12/2021 08/24/2021 04/17/2021 18 Eighteen To Twenty Week Vitor Update Ultra Sound Date Fundal Height At Umbil Quickening Date Ultra Sound Latest Weeks Gestation Final Vitor Confirmed By Final Vitor Confirmed Date Final Vitor Date Ultra Sound Latest Days Gestation 0 01/23/20 22 0 Pre-gloria Flowsheet Flowsheet Date 07/12/2021 [place] Score Blood Edema Fundus Height Fundus Units Glucose Ketones Leukocytes Nitrite Labor Signs Protein Cervic Dilation Cervic Effacement Cervic Station 12 wks 0cm 0% -4 Type Weight in lbs Pre/Post Dialysis Refused With clothes 174.413922093372 BP Diastolic BP Location Tested BP Systolic BP Type 78 130 sitting Fetus Heart Rate Present A 160 Present Fetus Movement Comments 12 weeks doing well, normal NOB examfirst induced post dates, had a bit of a shoulder dystocia it sounds like from her description of angella and suprapubic pressure ( I believe) Flowsheet Date 08/10/2021 Lincoln Score Blood Edema Fundus Height Fundus Units Glucose Ketones Leukocytes Nitrite Labor Signs Protein Cervic Dilation Cervic Effacement Cervic Station none none neg Type Weight in lbs Pre/Post Dialysis Refused With clothes 186.049774598835 BP Diastolic BP Location Tested BP Systolic BP Type 82 132 sitting Fetus Heart Rate Present A 165 Present Fetus Movement Comments Having some pubic bone press ure c/w second pregnancyplan anatomy US before next apt. Flowsheet Date 08/31/2021 Lincoln Score Blood Edema Fundus Height Fundus Units Glucose Ketones Leukocytes Nitrite Labor Signs Protein Cervic Dilation Cervic Effacement Cervic Station 19 wks none neg Type Weight in lbs Pre/Post Dialysis Refused With clothes 189.193127241450 BP Diastolic BP Location Tested BP Systolic BP Type 80 128 sitting Fetus Heart Rate Present A 138 Present Fetus Movement A Yes Comments Boy #2 on US. Anatomy normal , EDC confirmeddoing well, no big issues Menstrual History Last Menstrual Date Menses Monthly On Bcp Conception Prior Menses Frequency Hcg Plus Date Menarche Onset Age 0904/17/2021 false Genetic Screening And Infection History Question Response Note Patient's Age Will Be 35 Years Or Older At Estim ated Date of Delivery false Thalassemia (Ethiopian, Azerbaijani, Mediterranean, Or Background): MCV < 80 false Neural Tube Defect (Meningomyelocele, Spina Bifi da, Or Anencephaly) false Congenital Heart Defect false Down Syndrome false Mando-Sachs (eg, Taoist, Cajun, Greek-Nepalese) f alse Morro Disease false Sickle Cell Disease Or Trait () false Hemophilia Or Other Blood Disorders false Muscular Dystrophy false Cystic Fibrosis false [place]endale's Chorea false Mental Retardation/Autism false If Yes, Was Person Tested For [...] of Hepatitis false Prior GBS-infected child false Delivery Information Delivery Date Delivery Type Labor Anesthesia Weeks Gestation Incision Type Labor Labor Length Hrs Delivered By Post Complications Tubal Sterilization Discharge Date Comments Discharge Information Feeding Method Contraceptive Method Maternal HG B and HCT Levels Ob Episode Information Episode Created Date Number of Fetuses Patient Bloodtype Patient rh Status Prepregnancy Weight lbs Domestic Partner Domestic Partner Phone Father Name Chain Maker Loom Control Status 07/06/20 14 1 O Positive Desires [facility]H delivery CLOSED Fetus Data First Name Last Name Admitted to NICU Weight (g) Sex Living Outcome Pediatric Complications Fetus ID Race Codes Race Delivery Type 1861 Problems Problem Notes Problem Name Start Date End Date Resolution Snomed Code Not e Nausea [id number] depression [id number] Vitor Calculation Initial Vitor Date Initial Exam Date Initial Exam Provider Initial Ultrasound Date Last Menstrual Period Date Ultra Sound Weeks Gestation 02/03/2015 07/06/2014 07/14/2014 04/29/2014 11 Eighteen To Twenty Week Vitor Update Ultra Sound Date Fundal Height At Umbil Quickening Date Ultra Sound Latest Weeks Gestation Final Vitor Confirmed By Final Vitor Confirmed Date Final Vitor Date Ultra Sound Latest Days Gestation 0 02/04/20 15 0 Pre- Flowsheet Flowsheet Date 07/06/2014 [place] Score Blood Edema Fundus Height Fundus Units Glucose Ketones Leukocytes Nitrite Labor Signs Protein Cervic Dilation Cervic Effacement Cervic Station Type Weight in lbs Pre/Post Dialysis Refused 165.236667258703 BP Diastolic BP Location Tested BP Systolic BP Type 82 R arm 142 sitting Fetus Heart Rate Present Fetus Movement Comments Flowsheet Date 07/26/2014 Lincoln Score Blood Edema Fundus Height Fundus Units Glucose Ketones Leukocytes Nitrite Labor Signs Protein Cervic Dilation Cervic Effacement Cervic Station Type Weight in lbs Pre/Post Dialysis Refused 164.51632462930 BP Diastolic BP Location Tested BP Systolic BP Type 68 R arm 126 sitting Fetus Heart Rate Present Fetus Movement Comments Flowsheet Date 08/16/2014 Lincoln Score Blood Edema Fundus Height Fundus Units Glucose Ketones Leukocytes Nitrite Labor Signs Protein Cervic Dilation Cervic Effacement Cervic Station none none neg Type Weight in lbs Pre/Post Dialysis Refused 178.940211418769 BP Diastolic BP Location Tested BP Systolic BP Type 62 R arm 138 sitting Fetus Heart Rate Present A 152 Present Fetus Movement Comments Gave US req. to rtc 2 weeks. Flowsheet Date 08/30/2014 Lincoln Score Blood Edema Fundus Height Fundus Units Glucose Ketones Leukocytes Nitrite Labor Signs Protein Cervic Dilation Cervic Effacement Cervic Station neg none none negative neg Type Weight in lbs Pre/Post Dialysis Refused 177.246213209554 BP Diastolic BP Location Tested BP Systolic BP Type 63 R arm 134 sitting Fetus Heart Rate Present A 159 Present Fetus Movement A Yes Comments Ultrasound scheduled for 08/06 02/16 Quad screen req for [facility] given. Flowsheet Date 09/29/2014 Lincoln Score Blood Edema Fundus Height Fundus Units Glucose Ketones Leukocytes Nitrite Labor Signs Protein Cervic Dilation Cervic Effacement Cervic Station neg none none negative neg Type Weight in lbs Pre/Post Dialysis Refused 180.760291031993 BP Diastolic BP Location Tested BP Systolic BP Type 82 R arm 122 sitting Fetus Heart Rate Present Fetus Movement Comments Flowsheet Date 10/20/2014 [place] Score Blood Edema Fundus Height Fundus Units Glucose Ketones Leukocytes Nitrite Labor Signs Protein Cervic Dilation Cervic Effacement Cervic Station neg none 24 cm none small neg Type Weight in lbs Pre/Post Dialysis Refused 189.411861274009 BP Diastolic BP Location Tested BP Systolic BP Type 68 R arm 120 sitting Fetus Heart Rate Present A 166 Present Fetus Movement A Yes Comments Flowsheet Date 10/27/2014 [place] Score Blood Edema Fundus Height Fundus Units Glucose Ketones Leukocytes Nitrite Labor Signs Protein Cervic Dilation Cervic Effacement Cervic Station neg none 27 cm none negative neg Type Weight in lbs Pre/Post Dialysis Refused 187.565719192150 BP Diastolic BP Location Tested BP Systolic BP Type 68 R arm 118 sitting Fetus Heart Rate Present A 146 Present Fetus Movement A Yes Comments To rtc for 28 week lab req. Will go to hospital [facility]. Flowsheet Date 11/19/2014 [place] Score Blood Edema Fundus Height Fundus Units Glucose Ketones Leukocytes Nitrite Labor Signs Protein Cervic Dilation Cervic Effacement Cervic Station none 31 cm Type Weight in lbs Pre/Post Dialysis Refused 198.760305279342 BP Diastolic BP Location Tested BP Systolic BP Type 68 L arm 116 sitting Fetus Heart Rate Present A 144 Present Fetus Movement A Yes Comments Discussed possible 6 hr shif t limit at [facility] [place] [facility] Flowsheet Date 12/03/2014 Lincoln Score Blood Edema Fundus Height Fundus Units Glucose Ketones Leukocytes Nitrite Labor Signs Protein Cervic Dilation Cervic Effacement Cervic Station none 32 cm none neg Type Weight in lbs Pre/Post Dialysis Refused 198.653609305433 BP Diastolic BP Location Tested BP Systolic BP Type 62 R arm 114 sitting Fetus Heart Rate Present A 160 Present Fetus Movement A Yes Comments Sore pelvis. Good mvmn t. Flowsheet Date 12/23/2014 Lincoln Score Blood Edema Fundus Height Fundus Units Glucose Ketones Leukocytes Nitrite Labor Signs Protein Cervic Dilation Cervic Effacement Cervic Station none 34 cm Type Weight in lbs Pre/Post Dialysis Refused 203.45131825509 BP Diastolic BP Location Tested BP Systolic BP Type 76 118 sitting Fetus Heart Rate Present A 139 Present Fetus Movement A Yes Comments GBS today. Hanging in there. ONLY WANTS ONE PERSON IN DELIVERY ROOM Flowsheet Date 01/05/2015 [place] Score Blood Edema Fundus Height Fundus Units Glucose Ketones Leukocytes Nitrite Labor Signs Protein Cervic Dilation Cervic Effacement Cervic Station none 35 cm Type Weight in lbs Pre/Post Dialysis Refused 210.549640184796 BP Diastolic BP Location Tested BP Systolic BP Type 68 102 sitting Fetus Heart Rate Present A 144 Present Fetus Movement A Yes Comments 36 weeks, anxious to be done . Cervix check next time. Flowsheet Date 01/12/2015 Lincoln Score Blood Edema Fundus Height Fundus Units Glucose Ketones Leukocytes Nitrite Labor Signs Protein Cervic Dilation Cervic Effacement Cervic Station trace 35 wks Pressure 2cm 60% -2 Type Weight in lbs Pre/Post Dialysis Refused 212.22960450696 BP Diastolic BP Location Tested BP Systolic BP Type 84 126 sitting Fetus Heart Rate Present A 140 Present Fetus Movement A Yes Comments Tired but good FM/FHTs Flowsheet Date 01/19/2015 Lincoln Score Blood Edema Fundus Height Fundus Units Glucose Ketones Leukocytes Nitrite Labor Signs Protein Cervic Dilation Cervic Effacement Cervic Station none 37 cm none trace Type Weight in lbs Pre/Post Dialysis Refused 217.519386473739 BP Diastolic BP Location Tested BP Systolic BP Type 64 112 sitting Fetus Heart Rate Present A 144 Present Fetus Movement A Yes Comments reluctantly patient. Doing w ell otherwise Flowsheet Date 01/25/2015 Lincoln Score Blood Edema Fundus Height Fundus Units Glucose Ketones Leukocytes Nitrite Labor Signs Protein Cervic Dilation Cervic Effacement Cervic Station trace 37 cm none neg 2cm 60% -2 Type Weight in lbs Pre/Post Dialysis Refused 219.409228819669 BP Diastolic BP Location Tested BP Systolic BP Type 86 138 sitting Fetus Heart Rate Present A 138 Present Fetus Movement A Yes Comments Tired of being . cer vix stable. consider 02/04 induction if not delivered yet. Flowsheet Date 02/01/2015 Lincoln Score Blood Edema Fundus Height Fundus Units Glucose Ketones Leukocytes Nitrite Labor Signs Protein Cervic Dilation Cervic Effacement Cervic Station trace 40 cm none neg Type Weight in lbs Pre/Post Dialysis Refused 220.364672313022 BP Diastolic BP Location Tested BP Systolic BP Type 82 120 sitting Fetus Heart Rate Present A 135 Present Fetus Movement A Yes Comments EFW #8. Doing OK, discussed pros and cons of induction attempt. - will shoot for 02/04/15 Flowsheet Date 02/18/2015 Lincoln Score Blood Edema Fundus Height Fundus Units Glucose Ketones Leukocytes Nitrite Labor Signs Protein Cervic Dilation Cervic Effacement Cervic Station Type Weight in lbs Pre/Post Dialysis Refused 191.647005086833 BP Diastolic BP Location Tested BP Systolic BP Type 82 R arm 122 sitting Fetus Heart Rate Present Fetus Movement Comments Flowsheet Date 03/18/2015 [place] Score Blood Edema Fundus Height Fundus Units Glucose Ketones Leukocytes Nitrite Labor Signs Protein Cervic Dilation Cervic Effacement Cervic Station Type Weight in lbs Pre/Post Dialysis Refused 181.557937363593 BP Diastolic BP Location Tested BP Systolic BP Type 66 R arm 102 sitting Fetus Heart Rate Present Fetus Movement Comments Menstrual History Last Menstrual Date Menses Monthly On Bcp Conception Prior Menses Frequency Hcg Plus Date Menarche Onset Age 0904/29/2014 Genetic Screening And Infection History Question Response Note Patient's Age Will Be 35 Years Or Older At Estim ated Date of Delivery false Thalassemia (Ethiopian, Azerbaijani, Mediterranean, Or Background): MCV < 80 false Neural Tube Defect (Meningomyelocele, Spina Bifi da, Or Anencephaly) false Congenital Heart Defect false Down Syndrome false Mando-Sachs (eg, Taoist, Cajun, Greek-Nepalese) f alse Morro Disease false Sickle Cell Disease Or Trait () false Hemophilia Or Other Blood Disorders false Muscular Dystrophy false Cystic Fibrosis false [place]ale's Chorea false Mental Retardation/Autism false If Yes, Was Person Tested For Fragile X? false Other Inherited Genetic Or Chromosomal Disorder false Maternal Metabolic Disorder (eg, Type 1 Diabetes , PKU) false Patient Or Baby's Father Had A Child With Defects Not Listed Above false Recurrent Loss, Or A Stillbirth false Medications (including Suppl ements, Vitamins, Herbs, OTC Drugs), Illicit/Recreational Drugs, Alcohol true PNV's If Yes, Agent(s) And Strength/Dosage false Any Other Genetic History false Live With Someone With TB Or Exposed To TB false Patient Or Partner Has History Of Genital Herpes false Rash Or Viral Illness Since Last Menstrual Perio d false History Of STD, Gonorrhea, Chlamydia, HPV, Syphi lis false Other Infection History false Delivery Information Delivery Date Delivery Type Labor Anesthesia Weeks Gestation Incision Type Labor Labor Length Hrs Delivered By Post Complications Tubal Sterilization Discharge Date Comments 5 40.1 Discharge Information Feeding Method Contraceptive Method Maternal HG B and HCT Levels Ob Episode Information Episode Created Date Number of Fetuses Patient Bloodtype Patient rh Status Prepregnancy Weight lbs Domestic Partner Domestic Partner Phone Father Name Chain Maker Loom Control Status 10/21/19 15 1 CLOSED Fetus Data First Name Last Name Admitted to NICU Weight (g) Sex Living Outcome Pediatric Complications Fetus ID Race Codes Race Delivery Type 16846 Vitor Calculation Initial Vitor Date Initial Exam [...] Complications Tubal Sterilization Discharge Date Comments 0 sab Discharge Information Feeding Method Contraceptive Method Maternal HG B and HCT Levels Ob Episode Information Episode Created Date Number of Fetuses Patient Bloodtype Patient rh Status Prepregnancy Weight lbs Domestic Partner Domestic Partner Phone Father Name Chain Maker Loom Control Status 10/21/19 15 1 CLOSED Fetus Data First Name Last Name Admitted to NICU Weight (g) Sex Living Outcome Pediatric Complications Fetus ID Race Codes Race Delivery Type 33129 Vitor Calculation Initial Vitor Date Initial Exam [...] Post Complications Tubal Sterilization Discharge Date Comments 1 sab Discharge Information Feeding Method Contraceptive Method Maternal HG B and HCT Levels Ob Episode Information Episode Created Date Number of Fetuses Patient Bloodtype Patient rh Status Prepregnancy Weight lbs Domestic Partner Domestic Partner Phone Father Name Chain Maker Loom Control Status 10/21/19 15 1 CLOSED Fetus Data First Name Last Name Admitted to NICU Weight (g) Sex Living Outcome Pediatric Complications Fetus ID Race Codes Race Delivery Type 04695 Vitor Calculation Initial Vitor Date Initial Exam [...] Post Complications Tubal Sterilization Discharge Date Comments 6 tab Discharge Information Feeding Method Contraceptive Method Maternal HG B and HCT Levels Ob Episode Information Episode Created Date Number of Fetuses Patient Bloodtype Patient rh Status Prepregnancy Weight lbs Domestic Partner Domestic Partner Phone Father Name Chain Maker Loom Control Status 02/19/20 15 1 DELETED Vitor Calculation Initial Vitor Date Initial Exam [...] Complications Tubal Sterilization Discharge Date Comments 5 Regional-Ep idural GT Discharge Information Feeding Method Contraceptive Method Maternal HG B and HCT Levels
--- OUTSIDE RECORDS SUMMARY | 2025-07-28 00:31 | XMS_ITS | Clinical Summary ---
Author Organization [facility] Address [address] [place] [address] Phone Care Team Providers Care Scuba Diving Instructor Name Role Phone Kimberly Ray MEDICAL RECORDS SUPERVISOR, HORSE RACE STARTER Primary Care Provider [phone] Allergies No known active allergies Medications sertraline [...] Health Maintenance Due Date Last Done Comments Varicella Immunization (1 of 2 - 13+ 2-dose series) 12/14/2004 Hepatitis B Immunization (1 of 3 - 19+ 3-dose series) 12/14/2010 HPV/Cotest 12/14/2021 Cervical Cancer Screening ([facility]) 02/29/2024 Pap Smear 02/29/2024 02/28/2021 Influenza Immunization (#1) 2025 SARS-COV-2 Immunization ( season) 2025 07/17/2021, 06/21/2021 Td Immunization Every 10 Yea rs (Adults With 1 Tdap) 01/17/2032 01/16/2022, 10/03/2018, 02/05/2015 Respiratory Syncytial Virus (RSV) Immunization (Adult) (1 - 1-dose 75+ series) 12/14/2066 Hepatitis C Virus (HCV) Screening Completed 11/06/2021 DTaP/Tdap/Td Immunization Discontinued 2021, 10/03/2018, 02/05/2015 Human Papillomavirus (HPV) Immunization (No Doses Required) Completed Meningococcal Immunization (ACWY) Aged Out No longer eligible based on patient's age to complete this topic Pneumococcal Immunization Combined Aged Out No longer eligible based on patient's age to complete this topic Rotavirus Immunization Aged Out No lo nger eligible based on patient's age to complete this topic Insurance [place] Care Teams Scuba Diving Instructor Relationship Specialty Start Date End Date Kimberly Ray, MEDICAL RECORDS SUPERVISOR, HORSE RACE STARTER [address] [place] [address] PCP - General Certified Nurse Practitioner 10/28/23
--- OUTSIDE RECORDS SUMMARY | 2025-07-28 00:31 | XMS_ITS | Data Portability ---
Author Organization [facility] [place] Address [address] [place] [address] Assessment Encounter Date Assessment Date Assessment LastModified by Organization Details LastModified Time 04/30/2023 04/30/2023 Annual gynecological exam performed. Patient will come back in a year unless there are new symptoms. [email or web address] Not available 04/30/2023 10:57:21 06/16/2025 06/16/2025 Annual gynecological exam performed. Patient will come back in a year unless there are new symptoms. [email or web address] Not available 06/16/2025 11:17:22 Plan of Treatment Reminders Order Date Submit Date Provider Last Modified By Organization Details Last Modified Time Details Appointments SURG Salpingec kevin 2024 07:30A [place] AM[place] MD Not available Not available Not available SURG POST OP 2024 11:15A [place] AM[place] MD Not available Not available Not available Lab pap, IG + HR HPV - HPV regardles s but if HPV is positive need subtyping 16,18/45 Add Gc/CT/Tri ch 2024 025 [facility] (Lab), [address], [place], [address], 06/21/2025 16:52:35 Referral None recorded. Procedures None recorded. Surgeries salpingec kevin, laparosco pic (SURG) 2024 025 [facility], [address], [place], [address], 06/28/2025 10:45:59 Imaging None recorded. Medication Orders sertralin e 25 mg tablet 2022 023 [email or web address] [facility] #[id number], [address], [place], [id number], 04/30/2023 16:14:16 Junel Fe 24 1 mg-20 mcg (24)/75 mg (4) tablet 2022 023 [facility] #[id number], [address], [place], [id number], 04/30/2023 10:58:42 doxycycli ne hyclate 100 mg capsule 2022 023 [email or web address] [facility] #[id number], [address], [place], [id number], 04/30/2023 10:58:38 Patient TargetsNo targets recorded. Patient InstructionsNo instructions recorded. Reason for Referral None Reported. Results Created Date Observation Date Name Description Value Unit Range Abnormal Flag Note LastModifiedBy Organization Detail LastModifiedTime 02/15/2002/14/2023 BACTE RIAL VAGIN OSIS PANEL RT-PC R, ONESW AB gardnerella vaginalis PCR Positi ve abnormal Swab- 1 Vag Cerv Not Available [facility] (Lab) [address] [place], [address], 02/19/2023 13:02:55 02/15/2002/14/2023 BACTE RIAL VAGIN OSIS PANEL RT-PC R, ONESW AB atopobium vaginae PCR Positi ve abnormal Swab- 1 Vag Cerv Not Available [facility] (Lab) [address] [place], [address], 02/19/2023 13:02:55 02/15/20 23 02/14/2023 BACTE RIAL VAGIN OSIS PANEL RT-PC R, ONESW AB bacterial vaginosis associated bacteria 2 (bvab2) Positi ve abnormal Swab- 1 Vag Cerv Not Available [facility] (Lab) [address], [place], [address], 02/19/2023 13:02:55 02/15/20 23 02/14/2023 BACTE RIAL VAGIN OSIS PANEL RT-PC R, ONESW AB megasphaera species (type 1 and type 2) PCR Positi ve (Type1 ) abnormal Swab- 1 Vag Cerv Type1 :Posi tive Type2 :Nega tive. Not Available [facility] (Lab) [address], [place], [address], 02/19/2023 13:02:55 02/15/20 23 02/14/2023 BACTE RIAL VAGIN OSIS PANEL RT-PC R, ONESW AB lactobacillu s (bvpanel) PCR See Commen t Swab- 1 Vag Cerv L.cri spatu s: Negat nolan L.ladi senii : Negat nolan L.gas seri : Negat nolan L.ine rs : Negat nolan. Not Available [facility] (Lab) [address] [place], [address], 02/19/2023 13:02:55 02/15/20 23 02/14/2023 UROGE NITAL MYCOP LASMA /UREA PLASM A PANEL RT-PC R, ONESW AB nm bkr mycoplasma genitalium by RT-PCR Negati ve Swab- 1 Vag Cerv Not Available [facility] (Lab) [address] [place], [address], 02/19/2023 13:02:56 02/15/20 23 02/14/2023 UROGE NITAL MYCOP LASMA /UREA PLASM A PANEL RT-PC R, ONESW AB nm bkr mycoplasma hominis by RT-PCR Positi ve abnormal Swab- 1 Vag Cerv Not Available [facility] (Lab) [address] [place], [address], 02/19/2023 13:02:56 02/15/20 23 02/14/2023 UROGE NITAL [...] in the caitie lone resis tance -dete khadra buchanan regio n in [place] patie n[place]. FEMS 259: 181-1 86 Corrine et [...] and Ureap lasma ureal yticu m clini nathaly isola baldo from perin atal patie nts in [place] . Antim icrob Agent s Chemo ther 59: 2358- 2364) . 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 Shift in cori sugge stive of bacte rial vagin osis. Jeni watkins wayne d by Aggie Hoffmann ed, [...] Thinp rep Imagi ng Syste m. CLINI NATHALY INFOR MATIO N: Menst rual Statu s: LMP (if appli cable ): Clini nathaly Histo ry/Pr eviou s Pap: Type of Neopl greg (if appli cable ): Signi fican t Clini nathaly Findi ngs: Other Histo ry: Hormo eagle [...] ng do not corre late with physi nathaly and/o r histo rical findi ngs, furth er inves tigat ion is recom tanisha d, as clini cr izquierdo nted. Not Available [facility] (Lab) [address], [place], [address], 05/05/2023 22:59:11 04/30/20 23 04/30/2023 TRICH OMONA S VAGIN YANELIS (RRNA ) trichomonas vaginalis ribosomal RNA (rrna) Negati ve negati ve Not Available [facility] (Lab) [address], [place], [address], 05/05/2023 22:59:12 04/30/20 23 04/30/2023 CT/GC (MAIRA) , THINP REP VIAL chlamydia trachomatis, PCR Negati ve negati ve Not Available [facility] (Lab) [address], [place], [address], 05/05/2023 22:59:12 04/30/20 23 04/30/2023 CT/GC (MAIRA) , THINP REP VIAL neisseria gonorrhoeae, PCR Negati ve negati ve Not Available [facility] (Lab) [address], [place], [address], 05/05/2023 22:59:12 06/16/20 25 06/16/2025 IMAGE GUIDE D PAP AND HPV REGAR DLESS image guided Pap, HPV regardless of Pap result SEE RESULT S BELOW CASE REPOR T: Cytol ogy Gynec ologi nathaly Repor t Case: [id number] Autho shivam vines Provi sofi: Shelli Guzman NP Colle cted: 06/16 1705 Order ing Locat ion: [place] [facility] [place] Recei andi: 06/17 1221 First Henry n: Justine Zepeda Speci men: Henry terry Pap - Image d, Cervi x STATE MENT OF ADEQU ACY: Satis facto ry for evalu ation Trans forma tion zone compo nent prese nt ----- ----- ----- ----- ----- ----- ----- ----- ----- ----- ----- ----- ----- ----- ----- ----- ----- ---- FINAL DIAGN OSIS: Negat nolan for Intra epith elial Avinash lai or Ginny tsai (NIL) . 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 CLINI NATHALY INFOR MATIO N: Menst rual Statu s: LMP (if appli cable ): Clini nathaly Histo ry/Pr eviou s Pap: Type of Neopl greg (if appli cable ): Signi fican t Clini nathaly Findi ngs: Other Histo ry: Hormo eagle [...] ng do not corre late with physi nathaly and/o r histo rical findi ngs, furth er inves tigat ion is recom tanisha d, as clini cr izquierdo nted. Not Available [facility] (Lab) [address], [place], [address], 06/21/2025 16:52:34 06/16/20 25 06/16/2025 CT/GC AND TRICH OMONA S VAGIN YANELIS (RRNA ), THINP REP VIAL CT/GC and trichomonas vaginalis (rrna), thinprep SEE RESULT S BELOW negati ve CHLAM YDIA TRACH OMATI S, PCR: Negat nolan NEISS ERIA GONOR RHOEA E, PCR: Negat nolan TRICH OMONA S VAGIN YANELIS RIBOS OMAL RNA (RRNA ): Negat nolan Not Available [facility] (Lab) [address], [place], [address], 06/21/2025 16:52:35 Result Notes None recorded. Problems Name Problem SNOMED Code Status Onset Date Resolution Date Notes Provider Name and Address Organization Details Recorded Time Exception ally large at [id number] Completed 9# 1oz Lolis medleyl null, [facility] 2 13:46:35 Vaginal pain 93490160 Completed unremitti ng, moderate to severe, patient does not appear to be in distress. Lolis Mina ehl null, [facility] 2 13:46:35 [id number] Completed 202102/23/2022 Lolis Mina ehl null, [facility] 2 13:46:39 Problem Notes None recorded. Procedures Surgical History Date Name Laterality Status Provider Name and Address Organization Details Recorded Time 06/16/20 25 Date of Last Pap Smear completed [facility] 06/25/2025 12:15:07 11/04/19 24 Bilateral Mastectomy completed [facility] 06/25/2025 12:15:59 01/04/20 21 excisional biopsy of breast mass completed [facility] 09/22/2021 16:51:09 05/05/20 18 excisional biopsy of breast mass completed [facility] 09/22/2021 16:51:03 08/05/19 17 Colposcopy completed [facility] 09/21/2021 10:37:25 08/05/19 07 termination of completed Lizzie Nielsen [facility] 12/18/2021 16:32:24 Imaging Results None recorded. [...] a dose pack FOLLOW PACKAGE DIRECTION S active Not Available Not Available No t Available Vitamin D2 1,250 mcg (50,000 unit) [...] Not Available Not Available No t Available oxycodone 5 mg tablet TAKE 1 TABLET BY MOUTH EVERY 4 HOURS NEEDED FOR PAIN active Not Available Not Available No t Available cyclobenzap rine 5 mg tablet active Not Available Not Available Not Available duloxetine 30 mg capsule,del ayed release active Not Available [...] Not Available Not Available Vitals Date Recorded Systolic And Diastolic Provider Name and Address Organization Details Last Updated DateTime 02/14/2023 120/72 mm[Hg] Salima Reyes, [facility]- [address], [place], [address], [facility] 02/14/2023 15:39:41 Date Recorded Body height Body mass index (BMI) Body weight Provider Name and Address Organization Details Last Updated DateTime 02/14/2023 167.64 cm 30 kg/m2 95182.[address] [facility] 02/14/2023 15:28:54 Date Recorded Body height Body mass index (BMI) Body weight Systolic And Diastolic Provider Name and Address Organization Details Last Updated DateTime 04/30/2023 167.64 cm 28.6 kg/m2 84687.85 g 124/78 mm[Hg] Lizzie Nielsen [facility] 04/30/2023 10:58:06 Date Recorded Body height Body mass index (BMI) Body weight Provider Name and Address Organization Details Last Updated DateTime 06/11/2023 167.64 cm 28.6 kg/m2 08655.[address] [facility] 06/11/2023 10:28:25 Date Recorded Body height Body mass index (BMI) Body weight Systolic And Diastolic Provider Name and Address Organization Details Last Updated DateTime 06/16/2025 167.64 cm 29.9 kg/m2 50897.59 g 117/75 mm[Hg] Perlita Maya [facility] 06/16/2025 11:18:15 Date Recorded Body height Body mass index (BMI) Body weight Systolic And Diastolic Provider Name and Address Organization Details Last Updated DateTime 06/25/2025 167.64 cm 30.2 kg/m2 51650.49 g 119/72 mm[Hg] Monica Jung [facility] 06/25/2025 12:14:11 Social History Question Answer Notes LastModified by Organizat ion Details LastModified Time Tobacco Smoking Status Former Smoker Lizzie Nielsen jessy, [facility] 04/30/2023 10:58:30 Do You Have An Advance Directive? No [email or web address] Information n ot available 06/25/2025 Are You Blind Or Do You Have Difficulty Seeing? No [email or web address] Information n ot available 12/18/2021 What Is Your Level Of Caffeine Consumption? Moderate Information not available 02/14/2023 How Much Tobacco Do You Chew? None Information not available 02/14/2023 In The 14 Days Before Symptom Onset, Have You Had Close Contact With A Laboratory-confirm ed COVID-19 While That Case Was Ill? No Information n ot available 12/18/2021 In The 14 Days Before Symptom Onset, Have You Had Close Contact With A Person Who Is Under Investigation For COVID-19 While That Person Was Ill? No [email or web address] Information not available 12/18/2021 Have You Been To An Area Known To Be High Risk For COVID-19? No [email or web address] Information not available 12/18/2021 Are You Deaf Or Do You Have Serious Difficulty Hearing? No [email or web address] Information not available 12/18/2021 What Type Of Diet Are You Following? REGULAR [email or web address] Information n ot available 01/09/2022 What Is The Highest Grade Or Level Of School You Have Completed Or The Highest Degree You Have Received? [id number] Information not available 02/14/2023 Are There Any Guns Present In Your Home? No Information not available 02/14/2023 Have You Ever Been Counseled For Unhealthy Alcohol Use? No Information not available 04/30/2023 Do You Use Protection During Sex? No Information not available 02/14/2023 Do You Use Your Seat Belt Or Car Seat Routinely? Yes Information not available 12/18/2021 Do You Have Smoke And Carbon Monoxide Detectors In Your Home? Yes [email or web address] Information not available 12/18/2021 How Much Tobacco Do You Smoke? No Information not available 02/14/2023 Do You Use Sunscreen Routinely? No Information not available 02/14/2023 Has Tobacco Cessation Counseling Been Provided? No [email or web address] Information not available 04/30/2023 Have You Used IV Drugs? No Information not available 02/14/2023 Do You Have Difficulty Walking Or Climbing Stairs? No [email or web address] Information not available 04/30/2023 Sex: Unknown Functional Status Question Answer Note LastModified by Organizat ion Details LastModified Time Do you use any illicit or recreational drugs? Yes Information not available 02/14/2023 Do you or have you ever used any other forms of tobacco or nicotine? No [email or web address] Information not available 04/30/2023 What is your level of alcohol consumption? Occasional [email or web address] Information not available 12/18/2021 Are you able to walk independently without assistance or assistive devices? YESWOREST [email or web address] Information not available 12/18/2021 Are you able to care for yourself independently? 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 No [email or web address] Information not available 04/30/2023 What is your exercise level? Moderate Information not available 02/14/2023 Mental Status Question Answer Note LastModified by Organization D etails LastModified Time Do you feel stressed (tense, restless, nervous, or anxious, or unable to sleep at night)? [id number] [email or web address] Information not available 12/18/2021 Family History Relationship Description Onset Age of this Age Resolved Age Notes LastModified by Organization Details LastModified Time Father Hypertensive disorder [email or web address] Not available 2021 10:25:25 Mother Malignant neoplasm of breast 30 [email or web address] Not available 2024 12:03:17 Mother Malignant neoplasm of bone [email or web address] Not available 2024 12:03:18 Maternal Grandfather Malignant neoplasm of bone [email or web address] Not available 2024 12:03:18 Medical History Condition Response Allergies (Food, seasonal, environmental ) N Other Y Drug/Latex Allergies/Reactions N Blood Transfusion N Breast Cancer N Dermatologic Disorders N Lung Disease N Defects or Inherited Disease N Breast Problem N Gestational Diabetes N Hematologic disorders N Anesthesia Complications N History of STI Y Deep Vein Thrombosis N Polycystic ovary syndrome N Anxiety Disorder Y Autoimmune disease N Arthritis N Polyps N Infertility N Acid Reflux (GERD) N History of abnormal pap Y Cancer N Varicosities N Stroke N Neurologic/Epilepsy N Endometriosis N High Cholesterol N Fibromyalgia N Headaches N Kidney Disease N Heart Problems N Thyroid Problems N Kidney or Bladder Problems N GI Problems N Eating Disorder [...] Last Mammogram Flow Moderate Date of LMP 05/29/2025 N Was last menstrual period normal Y STIs/STDs Y HPV Vaccine Y Duration of Flow (days) 6 Current Control Method Abstinence Age at First Child 24 Are cycles usually normal Y Frequency of Cycle (Q days) 29 Sexually Active? Y Menses Monthly Y Date of DEXA bone scan Age of first menstrual cycle 14 Date of Last Pap Smear 06/16/2025 Sexual Problems? N Desired Control Method None LMP Approximate N Obstetrics History GPAL:G 5 P 2 0 3 2 Type Value Full Term 2 Induced 1 Spontaneous 2 Living 2 Total 5 Past Encounters Encounter ID Performer Location Encounter Start Date Encounter Closed Date Diagnosis/Indication Diagnosis SNOMED-CT Code Diagnosis ICD10 Code Diagnosis IMO Codes Diagnosis Note [id number] Nayan Amador MD [place] [address] [address] 09/22/2021 16:23:39 09/22/2021 17:28:47 Chronic pelvic pain of female 269129525 R10.2 Routine an tenatal care 048489545 Z34.82 [id number] Nayan Amador MD [place] [address] [address] 10/05/2021 16:18:42 10/05/2021 17:38:25 screening 482404928 Z36.3 [id number] MD Jessi Allen [address],[place] [address] 10/05/2021 16:19:02 10/06/2021 10:25:43 Routine care 733519209 Z34.82 [id number] MD Jessi Allen [address] [address] 10/18/2021 17:58:18 10/19/2021 16:10:49 Routine care 115959394 Z34.82 [id number] MD Jessi Allen [address] [address] 11/06/2021 11:34:52 11/06/2021 12:29:43 Routine care 662487707 Z34.82 [id number] MD Jessi Allen [address] [address] 12/06/2021 16:36:30 12/06/2021 17:22:47 Routine care 752036379 Z34.82 [id number] MD Jessi Allen [address] [address] 12/18/2021 15:44:58 12/18/2021 16:44:29 Uterine size for dates discrepancy 912925730 O26.843 Z3A.35 [id number] Ofelia Leone [facility] [address],[place] [address] 12/18/2021 15:52:11 12/19/2021 17:07:10 Routine care 120452145 Z34.93 [id number] MD Jessi Allen [address] [address] 12/27/2021 15:58:31 12/27/2021 16:51:06 Routine care 431246106 Z34.82 [id number] MD Jessi Allen [address] [address] 01/05/2022 14:06:12 01/08/2022 15:08:53 Routine care 230960445 Z34.82 [id number] Nayan Amador MD [place] [address] [address] 01/05/2022 15:14:30 01/05/2022 16:16:21 Reduced movement 694992927 O36.8199 [id number] Ofelia Leone [facility] [address] [address] 01/09/2022 11:21:06 01/10/2022 17:38:58 Routine care 682524109 Z34.93 [id number] Nayan Amador MD [place] [address] [address] 02/01/2022 12:05:12 02/02/2022 15:59:59 Abdominal pain 20067144 R10.9 This patient is a 31-year-ol d [...] the or perhaps very mild shingles infection [id number] Nayan Amador MD [place] [address] [address] 02/20/2022 12:49:54 02/20/2022 13:52:04 care 713470203 Z39.2 this patient is a 31-year-ol d multiparou s female who [facility]. She is bottle feeding, sure her bleeding is stopped. She has had intercours e. They used a condom. Her did get a vasectomy. Her mood is good. Her baby is doing well. She will follow-up in the next 2 months for well-woman exam [id number] Nayan Amador MD [place] [address] [address] 04/26/2022 15:45:34 04/26/2022 16:58:18 Gynecologic examination 48560805 Z01.419 Annual gynecologi nathaly exam performed. Patient will come back in [...] Cholestero l - Today Pap - today [id number] Salima Reyes [facility] [address] [address] 04/30/2023 10:47:25 04/30/2023 17:16:58 Gynecologic examination 00843475 Z01.419 Take Calcium with Vitamin D 1200mg [...] naRoutine Labs PCP Premenstru al tension syndrome 66423200 N94.3 Today we discussed using sertraline for [...] ing verbalized .RTO x 6-8wk med check [id number] Salima Reyes [facility] [address],[place] [address] 10/05/2022 15:06:06 10/05/2022 15:53:12 Vaginitis 52569969 N76.0 Suspect BV on examWe agreed to do Nuvessa x 1 night.Then , needs to do 5 nights of BA.Then, return to 2x/wk BA use for a minimum of 1mo-3mos.I f still having issues encouraged to reach out to Dr. Falguni [facility]ham vulvar care.Remin ded her of VCG's & adhering to these more strictly.U nderstandi ng verbalized . Time spent in visit is a total of 15 mins with at least 50% of visit consisting of counseling and review of plan of care. [id number] Salima Reyes , [facility] [address],[facility] [place] [address] 02/14/2023 15:18:18 02/14/2023 16:36:36 Vaginitis 80924745 N76.0 Suspect BV on examStill using boric [...] CDC guidelines ).May need to return to [facility]. Time spent in visit is a total of 30 mins with at least 50% of visit consisting of counseling and review of plan of care. Premenstru al tension syndrome 83960835 N94.3 Today we discussed using OCP for [...] read and signed. Pt verbalized understand ing. [id number] [facility] [address] [place] [address] 06/11/2023 10:27:23 06/11/2023 11:13:23 Premenstrual tension syndrome 96428188 N94.3 Patient is here today for a [...] , education of patient's plan of care. [id number] Shelli Guzman DESIREE [place] [address] [address] 06/16/2025 10:57:00 06/16/2025 15:47:24 Gynecologic examination 70089219 Z01.075 [id number] WWEBC - condoms , desires permeant sterlizati onPap - done todaySTI screen - gc/ct/tric h testing added to papRoutine labs - PCPRTC in 1 yr or sooner if needed It is strongly advised to have an annual flu shot and up can obtain at most pharmacies . If you have not had a TDap shot in the last 10 years you should obtain one as well. Discussed with patient & provided with informatio n regarding the HPV vaccine if applicable . Encourage safe sexual practices, to use condoms and limit partners if not already in a monogamous relationsh ip. Do monthly self breast exams. BRCA testing is now available for patients with strong genetic history of female cancer. If interested contact the office. Engage in regular exercise. Avoid tobacco and illicit drugs. This lifestyle behavior pattern will lead to less health conditions and longer life span. If BMI greater than 25 dietary consult advised. Questions answered. 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 Venereal d isease screening 889508550 Z11.3 [id number] Nayan Amador MD [place] [address] [address] 06/25/2025 12:03:10 06/28/2025 08:58:08 Sterilization education 609065073 Z30.09 [id number] This patient presents for female sterilizat ion. The patient desires tubal ligation. She is certain that she no longer wants to be fertile. We discussed sterilizat ion in detail. I described the procedure to the patient in detail. I informed her that we remove the tubes entirely in a. We discussed alternativ es. The patient knows they are highly effective reversible options. She understand s that the Salpingect comfort n is permanent. We discussed failure rate. She understand s there is reported failure rate to salpingect comfort.. As described salpingect comfort and removal of the entire tube. I discussed the reduction in ovarian cancer risk. The patient understand s and is ready to proceed with laparoscop ic bilateral salpigecto my. She return for informed consent process. Her surgery will be scheduled. spent more than 40 minutes face-to-fa ce. More than 50% was counseling . We made a decision to perform surgery. Health Concerns Section Related Observation LastModified by Organization Detai ls LastModified Time None Recorded Concern Status LastModified by Organization Details LastModified Time None Recorded Advance Directives Directive N: Payers Insurance Date Sequence Insurance Name Policy Number Policy Puentes Covered Member ID Puentes Member ID Guarantor Name 10/04/2022 1 [facility] [employer] - [employer]IGNA Libra Fontanez [id number] Libra Fontanez 12/18/2021 1 [employer] Libra Fontanez [id number] Libra Fontanez 07/25/2025 1 [facility] (MEDICAID HMO) [id number] Libra Fontanez [id number] Libra Fontanez Notes Date Note Type Note Provider Name and Address Organization Details Recorded Time 02/15/20 23 text/htm l Vaginal/Vulvar ProblemReported by [...] with school, being a mom, spouse. Salima Reyes, [facility]- [address], [place], [address], [place] [facility] 02/14/2023 16:02:01 04/30/20 23 text/htm l [...] menstruation (3-10 days)but reportsno depressionandno anxiety. Salima Reyes, [facility] [address], [place], [address], [facility] 04/30/2023 16:16:32 06/11/20 23 text/htm l ROS as noted in the [facility] Televisit for medication check of Sertraline for PMS/Anxiety. Salima Reyes [facility] [address], [place], [address], [facility] 06/11/2023 11:12:31 06/16/20 25 text/htm l Annual GYNReported by PatientGenitourinary symptomsFor menstrual cycle, patient reportsnormal menses. For urinary symptoms, patient reportsno hematuriaandno incontinence. For vulva, patient reportsno genital lesion. For vagina, patient reportsnormal vaginal discharge.Breast symptomsFor breast, patient reportsno breast pain,no breast lump, andno nipple discharge.Endocrine symptomsFor sexual complaints, patient reportsno sexual complaints,no pain during intercourse, andnormal libido. For menopausal symptoms, patient reportsno menopausal symptomsandnormal vaginal lubrication.Psychological symptomsFor psychological symptoms, patient reportsno depression,no anxiety, andno pmdd.Preventative measuresFor preventive measures, patient reportsencourage self breast examination,encourage regular exercise,encourage no tobacco use, andencourage regular mammograms starting age 40.34yo [id number] pap 2022 wnlRecently underwent a risk reducing bilateral mastectomy for variant of uncertain significance in the BRCA1 geneshe does not desire future fertility, has upcoming consult scheduled with Dr. Amador to discuss sterlization Perlita jiménez, [facility] 06/16/2025 17:55:42 06/25/20 25 text/htm l This patient presents for female sterilization. The patient desires tubal ligation. She is certain that she no longer wants to be fertile. We discussed sterilization in detail. I described the procedure to the patient in detail. I informed her that we remove the tubes entirely in a. We discussed alternatives. The patient knows they are highly effective reversible options. She understands that the Salpingectomy n is permanent. We discussed failure rate. She understands there is reported failure rate to salpingectomy.. As described salpingectomy and removal of the entire tube. I discussed the reduction in ovarian cancer risk. The patient understands and is ready to proceed with laparoscopic bilateral salpigectomy. She return for informed consent process. Her surgery will be scheduled. spent more than 40 minutes [id number]. More than 50% was counseling. We made a decision to perform surgery. Nayan Amador MD [address], [place], [address], [facility] 06/27/2025 21:30:30 OBGyn Episode Ob Episode Information Episode Created Date Number of Fetuses Patient Bloodtype Patient rh Status Prepregnancy Weight lbs Domestic Partner Domestic Partner Phone Father Name Project Hire Status 09/22/19 22 1 O Positive CLOSED Fetus Data First Name Last Name Admitted to NICU Weight (g) Sex Living Outcome Pediatric Complications Fetus ID Race Codes Race Delivery Type 3827.18 25 M true Full Term 27096 Vaginal Delivery Problems Problem Notes UDS + THC in records Problem Name Start Date End Date Resolution Snomed Code Not e Exceptionally large at [id number] 9# 1oz Vaginal pain [id number] unremit ting, moderate to severe, patient does [...] Weight in lbs Pre/Post Dialysis Refused Weight 195.842845173201 BP Diastolic BP Location Tested BP Systolic BP Type 77 R arm 124 sitting Fetus Heart Rate Present A 145 Fetus Movement Comments this patient is a 30-year-ol d 5 para 1031 at 22 weeks gestation presents for transfer of care. She had a jqanf-klo-dtidtozupbl-age baby that was 9 lb and 1 [...] Weight in lbs Pre/Post Dialysis Refused Weight 199.511559807277 BP Diastolic BP Location Tested BP Systolic [...] Weight in lbs Pre/Post Dialysis Refused Weight 199.314301362579 BP Diastolic BP Location Tested BP Systolic BP Type 75 R arm 127 sitting Fetus Heart Rate Present A 134 Fetus Movement Comments few complaints,, fatigue, ab dominal discomfort, Flowsheet Date 11/06/2021 Lincoln Score Blood Edema Fundus Height Fundus Units Glucose Ketones Leukocytes Nitrite Labor Signs Protein Cervic Dilation Cervic Effacement Cervic Station 30 Type Weight in lbs Pre/Post Dialysis Refused Weight 204.558247045639 BP Diastolic BP Location Tested BP Systolic [...] Weight in lbs Pre/Post Dialysis Refused Weight 217.043161540201 BP Diastolic BP Location Tested BP Systolic [...] Weight in lbs Pre/Post Dialysis Refused Weight 216.304926128961 BP Diastolic BP Location Tested BP Systolic [...] Weight in lbs Pre/Post Dialysis Refused Weight 217.366947213629 BP Diastolic BP Location Tested BP Systolic BP Type 76 R arm 121 sitting Fetus Heart Rate Present A 130 Fetus Movement Comments group B strep done, very low head, great exam. Flowsheet Date 01/05/2022 Licnoln Score Blood Edema Fundus Height Fundus Units Glucose Ketones Leukocytes Nitrite Labor Signs Protein Cervic Dilation Cervic Effacement Cervic Station 37 Type Weight in lbs Pre/Post Dialysis Refused Weight 221.234801695243 BP Diastolic BP Location Tested BP Systolic [...] Weight in lbs Pre/Post Dialysis Refused Weight 220.828069525860 BP Diastolic BP Location Tested BP Systolic [...] Weight in lbs Pre/Post Dialysis Refused Weight 200.122668758741 BP Diastolic BP Location Tested BP Systolic [...] Weight in lbs Pre/Post Dialysis Refused Weight 198.597603582504 BP Diastolic BP Location Tested BP Systolic [...] Estim ated Date of Delivery false Thalassemia (Belarusian, Turkish, Mediterranean, Or Background): MCV < 80 false Neural Tube Defect (Meningomyelocele, Spina Bifi da, Or Anencephaly) false Congenital Heart Defect false Down Syndrome false Mando-Sachs (eg, Mormonism, Cajun, Belgian-[place]) f alse Morro Disease false Sickle Cell Disease Or Trait () false Hemophilia Or Other Blood Disorders false Muscular Dystrophy false Cystic Fibrosis false Madonna's Chorea false Intellectual Disability/Autism false If Yes, [...] Comments 2 Induce d Regional-Ep idural 39 false Nayan Amador MD Discharge Information Feeding Method Contraceptive Method Maternal HG B and HCT Levels Ob Episode Information Episode Created Date Number of Fetuses Patient Bloodtype Patient rh Status Prepregnancy Weight lbs Domestic Partner Domestic Partner Phone Father Name Project Hire Status 09/22/19 22 1 CLOSED Fetus Data First Name Last Name Admitted to NICU Weight (g) Sex Living Outcome Pediatric Complications Fetus ID Race Codes Race Delivery Type 4110.45 0704 M Full Term 09850 Vaginal Delivery Vitor Calculation Initial Vitor Date [...] Domestic Partner Domestic Partner Phone Father Name Project Hire Status 09/22/19 22 1 CLOSED Fetus Data First Name Last Name Admitted to NICU Weight (g) Sex Living Outcome Pediatric Complications Fetus ID Race Codes Race Delivery Type , Induced 33431 Vitor Calculation Initial Vitor Date Initial Exam [...] Domestic Partner Domestic Partner Phone Father Name Project Hire Status 09/22/19 22 1 CLOSED Fetus Data First Name Last Name Admitted to NICU Weight (g) Sex Living Outcome Pediatric Complications Fetus ID Race Codes Race Delivery Type , Spontane ous 80281 Vitor Calculation Initial Vitor Date Initial Exam [...] Domestic Partner Domestic Partner Phone Father Name Project Hire Status 09/22/19 22 1 CLOSED Fetus Data First Name Last Name Admitted to NICU Weight (g) Sex Living Outcome Pediatric Complications Fetus ID Race Codes Race Delivery Type , Spontane ous 43345 Vitor Calculation Initial Vitor Date Initial Exam [...]
--- OUTSIDE RECORDS SUMMARY | 2025-07-28 00:32 | XMS_ITS | Clinical Summary ---
Author Organization [facility] [employer] Address [address] [place] [address] Care Team Providers Care Supervisor Frame Assembly Name Role Phone Unavailable Primary Care Provider [...] on file Legal Sex Female 8:54 AM KENNEL STAFF MEMBER Gender Identity Not on file Sexual Orientation Not on file Last Filed Vital Signs Vital Sign Reading Time Taken Comments Blood Pressure 112/66 11/13/2021 8:09 AM CDT Pulse 96 07/07/2020 1:25 PM KENNEL STAFF MEMBER Temperature 36.8 C (98.3 F) 07/07/2020 1:25 PM KENNEL STAFF MEMBER Respiratory Rate 18 07/07/2020 1:25 PM KENNEL STAFF MEMBER Oxygen Saturation 98% 07/07/2020 1:25 PM KENNEL STAFF MEMBER Inhaled Oxygen Concentration - - Weight 94.3 kg (208 lb) 11/13/2021 8:09 AM CDT Height 167.6 cm (5' 6) 11/13/2021 8:09 AM CDT Body Mass Index 33.57 11/13/2021 8:09 AM CDT Plan of Treatment Health Maintenance Due Date Last Done Comments HEPATITIS B VACCINES (1 of 3 - 19+ 3-dose series) 12/14/2010 HPV/Cotest (21-29) 12/14/2012 CERVICAL CANCER SCREENING 12/14/2021 HPV/Cotest (30-65) 12/14/2021 PAP SMEAR 12/14/2021 INFLUENZA VACCINE (#1) 2025 DTAP/TDAP/TD VACCINES (3 - Td or Tdap) 10/03/2028, 02/05/2015 RSV VACCINE (60+ or ) (1 - 1-dose 75+ series) 12/14/2066 HPV VACCINES (No Doses Required) Completed Insurance [facility] OPEN ACCESS
--- OUTSIDE RECORDS SUMMARY | 2025-07-28 00:32 | XMS_ITS | Clinical Summary ---
Author Organization [facility] Address [address] [place] [address] Care Team Providers Care Glassworker Name Role Phone Ludin Bowling MD Primary Care Provider [phone] Allergies No known active allergies Medications acetaminophen [...] 1 capsule (30 mg total) by mouth grocery cashier before breakfast Active diazePAM (VALIUM) 2 mg [...] Breast mass 05/23/2018 04/10/2022 Mammogram abnormal 04/01/2018 2 Bacterial vaginal infection 04/10/2022 Encounters Date Type Department Care Team Description 06/29/2025 11:15 AM BODY STRAIGHTENER Office Visit [facility] Medicine Surgery [address] [place] [address] Anyi Robles MD History of mastectomy, bilateral (Primary Dx) from Last 3 Months Immunizations Immunization Administration [...] on file Legal Sex Female 11:29 PM BODY STRAIGHTENER Gender Identity Not on file Sexual Orientation [...] Screening 12/14/2009 Regular Well Visit/Exam 18-64 12/14/2009 HPV Vaccines (1 - 3-dose SCDM series) 12/14/2018 Breast Cancer Screening-Mammogram 10/30/2023 10/29/2022, 10/20/2021, 10/04/2020, Additional history exists Covid-19 Vaccine ( - season) 2025 07/17/2021, 06/21/2021 Influenza Vaccine (#1) 2025 DTaP/Tdap/Td Vaccine (4 - Td or Tdap) 01/17/2032 01/16/2022, 10/03/2018, 02/05/2015 Pneumococcal vaccine <65 Aged Out No longer eligible based on patient's age to complete this topic Medical Devices Implanted Type Area Senior Network Engineer Device Identifier Shelf Expiration Date Model / Serial / Lot Bb Nose [employer] [id number] Magseed 18ga 7cm Marker Breast Biopsy - [id number] Implanted:Qty: 1 on 12/30/2020 at [facility] Right: Breast [employer] 09/04/2024 [id number] [employer] Magtrace Liquid Marker 10 Vial Carton [id number] - [id number] Implanted:Qty: 1 on 11/07/2023 by Dora Lopez MD PhD at [facility] Right: Breast [employer] 02/01/2025 [id number] / / [id number] Document Security System[employer]or [employer] Inc Magtrace Liquid Marker 10 Vial Carton [id number] - [id number] Implanted:Qty: 1 on 11/07/2023 by Dora Lopez MD PhD at [facility] Left: Breast [employer] 02/01/2025 [id number] / / [id number] Helen Vieques Mesh Surgical P4hb Synthetic [place] Galaflex Lite 15cm Soft Tissue Repair [id number] - [id number] Implanted:Qty: 1 on 02/28/2024 at [facility] Left: Breast Helen Vieques 09/04/2025 [id number] / / [id number] Helen [place] Mesh [employer] P4hb Synthetic [place] Galaflex Lite 17cm Soft Tissue Repair [id number] - [id number] Implanted:Qty: 1 on 02/28/2024 at [facility] Right: Breast Helen John 05/04/2025 [id number] / / [id number] Helen John M[employer] P4hb Synthetic [place] Galaflex Lite 17cm Soft Tissue Repair [id number] - [id number] Implanted:Qty: 1 on 02/28/2024 at [facility] Left: Breast Helen John 05/04/2025 [id number] / / [id number] Helen [place] M[employer] P4hb Synthetic [place] Galaflex Lite 15cm Soft Tissue Repair [id number] - [id number] Implanted:Qty: 1 on 02/28/2024 at [facility] Right: Breast Helen Vieques 09/04/2025 [id number] / / [id number] Rti [employer] Inc Graft Tissue Dermis Small Cortiva 1mm 7.3x15.1cm [id number] - [id number] - [id number] Implanted:Qty: 1 on 10/05/2024 by Anyi Robles MD at [facility] Right: Breast [employer] 01/02/2029 [id number] / [id number] / [employer]ti [employer] Inc Graft Tissue Dermis Small Cortiva 1mm 7.3x15.1cm [id number] - [id number] - [id number] Implanted:Qty: 1 on 10/05/2024 by Anyi Robles MD at [facility] Left: Breast [employer] 02/01/2029 [id number] / [id number] / [id number] Davol Inc/C R Bard Phasix 8x6in Monofilament Scaffold Full Resorbable Rectangle Mesh [id number] - [id number] Implanted:Qty: 1 on 10/05/2024 by Anyi Robles MD at [facility] Abdomen [employer]ol Inc/C R Bard [id number] 01/30/2026 [id number] / / [id number] Webjam Allian [employer] Anastomotic Microvascular Gold Stainless Steel Dorset [employer] 3.0mm [id number] - [id number] Implanted:Qty: 1 on 10/05/2024 by Anyi Robles MD at [facility] Left: Breast [employer] Allian [id number] 10/23/2028 [id number] / / [id number] Webjam Allian [employer] Anastomotic Microvascular Gold Stainless Steel Dorset [employer] 3.0mm [id number] - [id number] Implanted:Qty: 1 on 10/05/2024 by Anyi Robles MD at [facility] [employer] Allian [id number] 10/23/2028 [id number] / / [id number] [employer] Implant Breast Moderate Plus Profile Smooth Memorygel Boost 185cc Gel Hshx159 - [id number] - [id number] Implanted:Qty: 1 on 10/05/2024 by Anyi Robles MD at [facility] Right: Breast [employer] [id number] 02/24/2029 [id number] / [id number] / [employer] Implant Breast Moderate Plus Profile Smooth Memorygel Boost 185cc Gel [id number] - [id number] - [id number] Implanted:Qty: 1 on 10/05/2024 by Anyi Robles MD at [facility] Left: Breast [employer] [id number] 10/18/2028 [id number] / [id number] / Explanted Type Area Senior Network Engineer Device Identifier Shelf Expiration Date Model / Serial / Lot [employer] Insole Rasper Breast Ultra High Profile Round Smooth Artoura Plus 535cc Silicone [id number] - [id number] Implanted:Qty : 1 on 11/07/2023 by Aft, Dora Hale MD PhD at [facility] Explanted:Qty : 1 on 02/28/2024 by Anyi Robles MD at [facility] Left: Breast [employer] [id number] 10/17/[address] / / [id number] Description:Disposed per clarice icy [employer] Insole Rasper Breast Ultra High Profile Round Smooth Artoura Plus 535cc Silicone [id number] - [id number] Implanted:Qty : 1 on 11/07/2023 by Dora Lopez MD PhD at [facility] Explanted:Qty : 1 on 02/28/2024 by Anyi Robles MD at [facility] Right: Breast [employer] [id number] 10/17/[address] / / [id number] Description:Dispose of per p olicy [employer] Implant Mammary Smooth Mod High Profile Boost 500cc Kcti598 - [id number] Implanted:Qty : 1 on 02/28/2024 at [facility] Explanted:Qty : 1 on 10/05/2024 by Anyi Robles MD at [facility] Left: Breast [employer] 05/25/2028 [id number] / [id number] [employer] Implant Mammary Smooth Mod High Profile Boost 500cc Mixc649 - [id number] Implanted:Qty : 1 on 02/28/2024 at [facility] Explanted:Qty : 1 on 10/05/2024 by Anyi Robles MD at [facility] Right: Breast [employer] 06/19/2028 [id number] / [id number] Procedures Procedure Name Priority Date/Time Associated Diagnosis Comments SCREENING MAMMOGRAM BILATERAL W PATITO Schedule Routine, Read Routine (OP Routine) 10/29/2022 10:06 AM CDT Breast cancer screening, high risk patient Breast cancer screening by mammogram from Last 3 Months or Most Recently Relevant to Health Maintenance Results * Screening Mammogram Bilateral W Patito (10/29/2022 10:06 AM CDT) Anatomical Region Laterality [...] MAMMOGRAM COMPARISON: Multiple prior studies, most recently [facility] 10/20/2021 and dating back to 12/26/2015. TECHNIQUE: [...] Most Recently Relevant to Health Maintenance Insurance [facility] Advance Directives For more information, please contact: [phone] * Full Code (Latest Code Status on File) Date Activated Date Inactivated Comments 10/05/2024 5:02 PM 10/08/2024 1:41 PM * Full Code Date Activated Date Inactivated Comments 11/07/2023 5:41 PM 11/08/2023 4:37 PM Care Teams Glassworker Relationship Specialty Start Date End Date Ludin Bowling MD PCP - General Family Practice 06/25/23
--- OUTSIDE RECORDS SUMMARY | 2025-07-28 00:32 | XMS_ITS | Encounter Summary ---
Author Organization [facility] Healthcare Address [address] [place] [address] Care Team Providers Care Post Splitter Name Role Phone No, Physician Primary Care Provider Harpal Donis MD Primary Care Provider [phone] No, Physician Primary Care Provider [phone] Unknown, Notinfile Primary Care Provider Unavail able No, Physician Primary Care Provider Ludin Bowling MD Primary Care Provider [phone] Encounter Details Date Type Department Care Team (Late st Contact Info) Description 05/09/2020 Telephone [facility] ([facility]) [address] [place] [id number] Laith Olguin, RT Social History Tobacco Use Types Packs/Day Years Used Date Smoking Tobacco: Former Cigarettes Q uit: 04/08/2015 Smokeless Tobacco: Never Alcohol Use Standard Drinks/Week Comments Yes 0 (1 standard drink = 0.6 oz pur e alcohol) 2 drinks a month Comments No Sex and Gender Information Value Date Recorded Sex Assigned at Not on file Legal Sex Female 11:29 PM MOLDER LABELS Gender Identity Not on file Sexual Orientation Not on file documented as of this encounter Plan of Treatment Not on file documented as of this encounter Visit Diagnoses Not on filedocumented in this encounter Care Teams Post Splitter Relationship Specialty Start Date End Date No, Physician PCP - General 6/29/19 4/28/21 Harpal Donis MD PCP - General 12/01/20 12/27/20 No, Physician PCP - General 12/28/20 05/21/21 Unknown, Notinfile PCP - General 05/22/21 10/19/21 No, Physician PCP - General 10/20/21 06/24/23 Ludin Bowling MD PCP - General Family Practice 06/25/23 documented as of this encounter
--- OUTSIDE RECORDS SUMMARY | 2025-07-28 00:32 | XMS_ITS | Continuity of Care Document ---
Author Organization [facility] [place] Address [address] [place] [address] Assessment Encounter Date Assessment Date Assessment LastModified by Organization Details LastModified Time 06/16/2025 06/16/2025 Annual gynecological exam performed. Patient will come back in a year unless there are new symptoms. [email or web address] Not available 06/16/2025 11:17:22 Plan of Treatment [...] subtyping 16,18/45 Add Gc/CT/Tri ch 2024 025 [facility] (Lab), [address], [place], [address], 06/21/2025 16:52:35 Referral None recorded. Procedures None recorded. Surgeries None recorded. Imaging None recorded. Medication Orders None recorded. Patient TargetsNo targets recorded. Patient InstructionsNo instructions recorded. Reason for Referral None Reported. 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 Not Available [facility] (Lab) [address], [place], [address], 06/21/2025 16:52:34 06/16/20 25 06/16/2025 CT/GC AND [...] Available [facility] (Lab) [address], [place], [address], 06/21/2025 16:52:35 Result Notes None recorded. Problems Name Problem SNOMED Code Status Onset Date Resolution Date Notes Provider Name and Address Organization Details Recorded Time Exception roland large at [id number] Completed 9# 1oz Lolis Mina [facility] 2 13:46:35 Vaginal pain 46530295 Completed unremitti ng, moderate to severe, patient does not appear to be in distress. Lolis jiménez, [facility] 2 13:46:35 [id number] Completed 202102/23/2022 Lolis oakes null, [facility] 2 13:46:39 Problem Notes None recorded. Procedures Surgical History Date Name Laterality Status Provider Name and Address Organization Details Recorded Time 06/16/20 25 Date of Last Pap Smear completed [facility] 06/25/2025 12:15:07 11/04/19 24 Bilateral Mastectomy completed [facility] 06/25/2025 12:15:59 01/04/20 21 excisional biopsy of breast mass completed [facility] 09/22/2021 16:51:09 05/05/20 18 excisional biopsy of breast mass completed [facility] 09/22/2021 16:51:03 08/05/19 17 Colposcopy completed [facility] 09/21/2021 10:37:25 08/05/19 07 termination of completed Lizzie Nielsen [facility] 12/18/2021 16:32:24 Imaging Results None [...] Not Available Vitals Date Recorded Body height Body mass index (BMI) Body weight Systolic And Diastolic Provider Name and Address Organization Details Last Updated DateTime 06/16/2025 167.64 cm 29.9 kg/m2 20392.59 g 117/75 mm[Hg] Perlita Maya [facility] 06/16/2025 11:18:15 Social History Question Answer Notes LastModified by Organizat ion Details LastModified Time Tobacco Smoking Status Former Smoker Lizzie Nielsen [facility], [facility] 04/30/2023 10:58:30 Do You Have An Advance Directive? No [email or web address] Information n ot available 06/25/2025 Are You Blind Or Do You Have Difficulty Seeing? No [email or web address] Information n ot available 12/18/2021 What Is Your Level Of Caffeine Consumption? Moderate Information not available 02/14/2023 How Much Tobacco Do You Chew? None Information not available 02/14/2023 In The 14 Days Before Symptom Onset, Have You Had Close Contact With A Laboratory-confirm ed COVID-19 While That Case Was Ill? No [email or web address] Information n ot available 12/18/2021 In The 14 Days Before Symptom Onset, Have You Had Close Contact With A Person Who Is Under Investigation For COVID-19 While That Person Was Ill? No [email or web address] Information not available 12/18/2021 Have You Been To An Area Known To Be High Risk For COVID-19? No [email or web address] Information not available 12/18/2021 Are You Deaf Or Do You Have Serious Difficulty Hearing? No [email or web address] Information not available 12/18/2021 What Type Of Diet Are You Following? REGULAR [email or web address] Information n ot available 01/09/2022 What Is The Highest Grade Or Level Of School You Have Completed Or The Highest Degree You Have Received? SE27676-3 Information not available 02/14/2023 Are There Any Guns Present In Your Home? No Information not available 02/14/2023 Have You Ever Been Counseled For Unhealthy Alcohol Use? No [email or web address] Information not available 04/30/2023 Do You Use Protection During Sex? No Information not available 02/14/2023 Do You Use Your Seat Belt Or Car Seat Routinely? Yes [email or web address] Information not available 12/18/2021 Do You Have Smoke And Carbon Monoxide Detectors In Your Home? Yes Information not available 12/18/2021 How Much Tobacco Do You Smoke? No Information not available 02/14/2023 Do You Use Sunscreen Routinely? No Information not available 02/14/2023 Has Tobacco Cessation Counseling Been Provided? No [email or web address] Information not available 04/30/2023 Have You Used IV Drugs? No Information not available 02/14/2023 Do You Have Difficulty Walking Or Climbing Stairs? No Information not available 04/30/2023 Sex: Unknown Functional Status Question Answer Note LastModified by Organizat ion Details LastModified Time Do you use any illicit or recreational drugs? Yes Information not available 02/14/2023 Do you or have you ever used any other forms of tobacco or nicotine? No [email or web address] Information not available 04/30/2023 What is your level of alcohol consumption? Occasional [email or web address] Information not available 12/18/2021 Are you able to walk independently without assistance or assistive devices? YESWOREST [email or web address] Information not available 12/18/2021 Are you able to care for yourself independently? 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 No [email or web address] Information not available 04/30/2023 What is your exercise level? Moderate Information not available 02/14/2023 Mental Status Question Answer Note LastModified by Organization D etails LastModified Time Do you feel stressed (tense, restless, nervous, or anxious, or unable to sleep at night)? CH74432-3 [email or web address] Information not available 12/18/2021 Family History Relationship Description Onset Age of this Age Resolved Age Notes LastModified by Organization Details LastModified Time Father Hypertensive disorder [email or web address] Not available 2021 10:25:25 Mother Malignant neoplasm of breast 30 [email or web address] Not available 2024 12:03:17 Mother Malignant neoplasm of bone [email or web address] Not available 2024 12:03:18 Maternal Grandfather Malignant neoplasm of bone [email or web address] Not available 2024 12:03:18 Medical History Condition [...] ICD10 Code Diagnosis IMO Codes Diagnosis Note [id number] ZENON [facility] [address] [address] 06/16/2025 10:57:00 06/16/2025 15:47:24 Gynecologic examination 36797207 Z01.093 [id number] WWEBC - condoms , desires permeant sterlizati [...] dietary consult advised. Questions answered. 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 Venereal d isease screening [id number] Z11.3 [id number] Health Concerns Section Related Observation LastModified by Organization Detai ls LastModified Time None Recorded Concern Status LastModified by Organization Details LastModified Time None Recorded Payers Encounter Date Sequence Insurance Name Policy Number Policy Puentes Covered Member ID Puentes Member ID Guarantor Name 06/16/2025 1 [facility] (MEDICAID HMO) [id number] Libra Fontanez [id number] Libra Fontanez Notes Date Note Type Note Provider Name and Address Organization Details Recorded Time 5 text/html Annual GYNReported by PatientGenitourinary symptomsFor menstrual [...] use, andencourage regular mammograms starting age 40.34yo [id number] pap 2022 wnlRecently underwent a risk reducing bilateral mastectomy for variant of uncertain significance in the BRCA1 geneshe does not desire future fertility, has upcoming consult scheduled with Dr. Amador to discuss sterlization Perlita jiménez [facility] 06/16/2025 17:55:42 OBGyn Episode No OBEpisode recorded.
--- OUTSIDE RECORDS SUMMARY | 2025-07-28 00:32 | XMS_ITS | Clinical Summary ---
Author Organization [facility] [employer] Address [address] [place] [address] Care Team Providers [facility] Owner Name Role Phone Unavailable Primary Care Provider Unavailabl e Source Comments [facility] [employer],non-owned Affiliates and Associated Physician Practices is amultiple site organization consisting of ambulatory clinics and hospital sitesin [place], [place], [place] and [place]. This disclosure is being madepursuant to the Care Everywhere program and may not contain all information available regarding this patient. Last updated 18.[employer] Allergies No known active allergies Medications * [...] DEPRESSION SCREENING 08/05/2024 COVID-19 VACCINE (1 - 2024-2 6 season) 2025 INFLUENZA VACCINE (#1) 2025 ZOSTER [...] patient's age to complete this topic Insurance [facility]
--- NOTE | 2025-07-28 06:44 | WPDANESEPPF ---
Anes - Initial Pre Proc Eval Procedure: Operation Date: 07/28/25 07:30 Proposed Procedures p Laparoscopic Bilateral Salpingectomy - Nayan Amador MD Date/Time: 07/28/25 06:44 Surgeon: Nayan Amador MD Pre Op Diagnosis: desires sterilization Patient Data Age: 34 Gender: F Height: 1.68 m Weight: 83.46 kg Allergies Allergy/AdvReac Type Severity Reaction Status Date / Time No Known Allergies Allergy Verified 07/22/25 14:47 Home Medications ?Medication ?Instructions ?Recorded ?Confirmed ?Type gabapentin 100 mg capsule 100 mg PO DAILY PRN pain 02/03/24 07/22/25 History duloxetine 30 mg capsule,delayed 30 mg PO DAILY 07/22/25 07/22/25 History release multivitamin (Daily Multi-Vitamin 1 tablet PO DAILY 07/22/25 07/22/25 History tablet) Patient hx anesthesia problems: none Family hx anesthesia problems: none Results Review: All pre-operative results and documents have been reviewed as part of the pre-operative evaluation. [facility] Past Medical History Medical History Anxiety Surgical History Surgical History H/O bilateral mastectomy No pertinent past surgical history Family History Family History Mother Brain cancer Lung cancer Bone cancer Breast cancer in female Father Anxiety and depression Hypertension Grandparent Bone cancer Emphysema lung Anxiety and depression Other Patient's mother is Social History Social History Smoking packs per day: 0.5 Smoking cigarettes per day: 10.0 Years smoked: 3 Smoking pack-years: 1.50 Smoking status: Former smoker Second hand tobacco smoke exposure: No Alcohol intake: never Alcohol use details: Social Substance use: current Substance use type: marijuana Last use: 07/22/2025 Lack of Transportation: No Lack of Food: Never True Current Housing: I Have Housing Concerned About Future Housing: No Difficulty Paying Gas/Electric Bills: YES Difficulty Paying for Meds: No Currently Unemployed: No Education: Trade/Vocational Certificate Difficulty w/ Childcare or Family Care: No Living arrangements: with family Additional living arrangements comments: with children Gender identity (if verbalized by the patient): Female Sexual Orientation (if Verbalized by the Patient): Straight or Heterosexual Spiritual care concerns: No Anes - Eval Final PreProcedure Day of Procedure 07/28/25 06:44 Patient weight: overweight Heart: regular rate and rhythm Lungs: clear to auscultation Airway: Mallampati scale class II Neurological: alert and oriented Last oral intake: >/= 8 hours ASA classification: II Emergent: no Anesthetic plan: proceed Anesthesia type and monitoring: general ETT and standard monitoring Results Review: All pre-operative results and documents have been reviewed as part of the pre-operative evaluation. Informed Consent: The patient's anesthetic plan and its attendant risks and benefits were discussed with the patient/family/POA. Questions were solicited and answers provided to the satisfaction of the patient/family/POA.
[2025-07-28] MEDS: KETOROLAC 15 MG/ML VIAL (*BKC) IV PUSH (07:10)
[2025-07-28] MEDS: SCOPOLAMINE 1 MG PATCH 1 PATCH TRANSDERM (07:10)
[2025-07-28] MEDS: ACETAMINOPHEN 500 MG TABLET 1000 MG PO (07:10)
[2025-07-28] MEDS: LACTATED RINGERS 1,000 ML 30 ML IV CONT ×2 (07:10→08:32)
--- NOTE | 2025-07-28 07:21 | PM.IMHP2 ---
H&P: HPI History of Present Illness Date/Time: 07/28/25 07:21 Chief Complaint: Unwanted fertility Narrative: This patient is a 34-year-old female with unwanted fertility. We have agreed to perform laparoscopic bilateral salpingectomy. She understands risks, benefits, and alternatives. This completed the informed consent process is ready to proceed. The patient understands the details of the procedure. The procedure has been explained in detail. She understands the risks. She understands that injuries may occur that result in hospitalization, more surgery, and severe illness. She understands risk of hemorrhage and infection. She denies any chest pain or shortness of breath. She denies any nausea, vomiting, fever, chills. Review of Systems Review of Systems: All systems reviewed & are unremarkable except as noted in HPI and below Constitutional: Constitutional: Denies chills, Denies fatigue, Denies fever(s) and Denies weakness Eyes: Eyes: Denies blurry vision, Denies change in vision, Denies loss of peripheral vision, Denies loss of vision, Denies other visual disturbances and Denies eye pain ENT: Denies vertigo, Denies dizziness, Denies hearing loss, Denies mouth pain, Denies nasal obstruction, Denies neck mass and Denies neck pain Cardiovascular: Cardiovascular: Denies chest pain, Denies diaphoresis, Denies syncope, Denies leg edema and Denies dyspnea Respiratory: Respiratory: Denies chest congestion, Denies cough, Denies hemoptysis, Denies dyspnea and Denies wheezing Gastrointestinal: Gastrointestinal: Denies abdominal pain, Denies constipation, Denies diarrhea, Denies nausea and Denies vomiting Genitourinary: Genitourinary: Denies hematuria, Denies change in libido, Denies nocturia, Denies genital lesions, Denies flank pain and Denies urinary urgency Musculoskeletal: Musculoskeletal: Denies abnormal gait, Denies back pain, Denies myalgias, Denies arthralgias, Denies joint swelling, Denies muscle weakness and Denies neck pain Integumentary/Breasts: Skin/Breast: Denies swelling, Denies breast pain, Denies breast mass, Denies dry skin, Denies nipple discharge, Denies unusual bruising and Denies jaundice Neurologic: Denies Neuro-related abnormal movements, Denies Abnormal speech present, Denies abnormal gait, Denies behavioral changes, Denies confusion, Denies vertigo, Denies dizziness, Denies syncope, Denies loss of vision, Denies memory loss, Denies convulsions and Denies weakness Psychiatric: Psychiatric: Denies abnormal sleep pattern, Denies behavioral changes, Denies change in libido, Denies confusion, Denies depression, Denies anhedonia and Denies memory loss Endocrine: Endocrine: Reports no additional endocrine complaints, Denies change in libido and Denies fatigue Hematologic/Lymphatic: Hematologic/Lymphatic: Reports no additional hematologic/lymphatic complaints Allergic/Immunologic: Allergic/Immunologic: Reports no additional allergic/immunologic complaints and Denies wheezing PMFSH Past Medical History Medical History Anxiety Surgical History Surgical History H/O bilateral mastectomy No pertinent past surgical history Family History Family History Mother Brain cancer Lung cancer Bone cancer Breast cancer in female Father Anxiety and depression Hypertension Grandparent Bone cancer Emphysema lung Anxiety and depression Other Patient's mother is Social History Social History Smoking packs per day: 0.5 Smoking cigarettes per day: 10.0 Years smoked: 3 Smoking pack-years: 1.50 Smoking status: Former smoker Second hand tobacco smoke exposure: No Alcohol intake: never Alcohol use details: Social Substance use: current Substance use type: marijuana Last use: 07/22/2025 Lack of Transportation: No Lack of Food: Never True Current Housing: I Have Housing Concerned About Future Housing: No Difficulty Paying Gas/Electric Bills: YES Difficulty Paying for Meds: No Currently Unemployed: No Education: Trade/Vocational Certificate Difficulty w/ Childcare or Family Care: No Living arrangements: with family Additional living arrangements comments: with children Gender identity (if verbalized by the patient): Female Sexual Orientation (if Verbalized by the Patient): Straight or Heterosexual Spiritual care concerns: No Meds Home Medications and Allergies Home Medications ?Medication ?Instructions ?Recorded ?Confirmed ?Type gabapentin 100 mg capsule 100 mg PO DAILY PRN pain 02/03/24 07/22/25 History duloxetine 30 mg capsule,delayed 30 mg PO DAILY 07/22/25 07/22/25 History release multivitamin (Daily Multi-Vitamin 1 tablet PO DAILY 07/22/25 07/22/25 History tablet) Allergies Allergy/AdvReac Type Severity Reaction Status Date / Time No Known Allergies Allergy Verified 07/22/25 14:47 Exam Const: General: cooperative, healthy appearing, comfortable and no acute distress Orientation/consciousness: oriented to person, oriented to place and oriented to time HENMT: Head: normal to inspection Ears: external ears normal Face/Nose/Sinus: Normal external nose present and normal facial exam Face and sinus: normal facial exam Eyes: General: appearance normal, both eyes and all related structures Neck: Neck: normal visual inspection, trachea midline and supple Resp: Auscultation: clear to auscultation bilaterally, no crackles, no rales, no rhonchi and no wheezes Cardio: Rate: regular rate Rhythm: regular rhythm Heart sounds: no click, no murmurs and no rubs GI: GI Palp: No abdominal tenderness, No Soft to palpation, No Tenderness to palpation present (GI) and No Palpable mass present Auscultation: normal bowel sounds Skin: General skin exam: normal color and no rashes or lesions noted Neuro: General: oriented to person, oriented to place and oriented to time Extrem: General: normal to inspection, no joint enlargement, no clubbing, cyanosis or edema, no pedal edema and no calf tenderness Psych: Appearance: grossly normal Mental Status: mental status grossly normal Speech and movement: Normal speech and movement present Assessment and Plan Assessment and plan (1) Unwanted fertility: Code(s): Z30.09 - Encounter for other general counseling and advice on contraception Status: Acute Plan This patient is a 34-year-old female with unwanted fertility. We have agreed to perform laparoscopic bilateral salpingectomy. She understands risks, benefits, and alternatives. This completed the informed consent process is ready to proceed.
--- NOTE | 2025-07-28 07:22 | WPDHPUPDATE1 ---
History and Physical Update Update Date/Time: 07/28/25 07:22 History and Physical has been reviewed, including an updated exam of the patient. There are NO changes in the patient's condition. Risks, benefits, and alternatives have been discussed and questions answered. Patient agrees to proceed with procedure.
[2025-07-28 07:40] LABS: BEDSIDEPREGUCG Negative (Negative)
--- NOTE | 2025-07-28 07:54 | S_PTH ---
PATIENT: Libra Fontanez LOC: [facility] U#:[id number] AGE/SX: 34/F ROOM: RE07/28/[address]: Nayan Amador MD : 1990 BED: DIS: 07/28/2025 SPEC #: [id number] RECD: 07/28/25 09:59 STATUS: YASH REQ #: [id number] YOGI: 07/28/25 07:[address]: Nayan Amador DEPT: [facility] Surgical RECD BY: Yenni Araiza ENTERED: 07/28/25 09:59 SP TYPE: Surgical OTHR DR: Ludin Bowling MD Tissues: A - Fallopian Tube Bilateral Procedures: Gross and Microscopic Level 2 Hematoxylin and Eosin Stain
--- NOTE | 2025-07-28 08:03 | W.PM.PROC2 ---
Procedure Note - Detailed Date of Procedure 07/28/25 Pre-op Diagnosis desires sterilization Post-op Diagnosis Same Procedure Performed Laparoscopic bilateral salpingectomy Surgeon Nayan Amador MD Anesthesia General Indications Unwanted fertility Findings Normal pelvic anatomy Description of Procedure The patient was taken the operating room. She was prepped and draped in the dorsal lithotomy position after induction of general anesthesia. A 5 mm skin incision was made in the left upper quadrant of the abdominal skin. A 5 mm trocar was inserted the intra-abdominal cavity under direct visualization of the scope. Pneumoperitoneum was achieved. A 5 mm trocar was inserted in the left lower quadrant identical fashion. A 5 mm infraumbilical trocar was inserted in identical fashion as well. The bilateral fallopian tubes were removed. This was done by using a LigaSure cautery. The mesosalpinx adjacent to the tube was cauterized transected with LigaSure. This was initiated in the area the ovary and in a stepwise fashion moved medially to the area of the cornu of the uterus. Once there the fallopian tube was cauterized and transected. This was done in identical fashion on each side. The fallopian tubes were taken out through the left lower quadrant trocar site. The pneumoperitoneum was reduced. The trocars removed. The skin was closed with subcuticular 4 Monocryl and covered with Dermabond. She was taken to cover stable condition. Sponge lap and needle counts were correct x2. Estimated Blood Loss 5 Drains No Packing No Pathology Yes Complications No immediate complications Condition Stable Disposition PACU
[2025-07-28] MEDS: fentaNYL CITRATE INJ (*CRX) 100 MCG/2 ML VIAL 25 MCG IV PUSH ×2 (08:49→08:51)
[2025-07-28] MEDS: oxyCODONE HCL (*CRX) 5 MG TAB IR PO (09:40)
== END 2025-07-28 10:22 | disposition home or self-care (01) ==
PROVIDERS: PCP Family Medicine; Visit Provider Obstetrics & Gynecology
PROC: (CPT 49320; principal; 2025-07-28 07:30)
DX: Z30.2 Encounter for sterilization (principal); F12.90 Cannabis use, unspecified, uncomplicated; Z87.891 Personal history of nicotine dependence
CPT/HCPCS: 58661; 88302; A9270; J1100; J1885; J2003; J2250; J2405; J2704; J3010; J7120